=== PATIENT | male | born 1935 | race African-American/Black ===

== ENCOUNTER 2017-03-19 09:55 | Inpatient (IN) | payer OTHER ==
--- NOTE | 2017-03-19 10:18 | PDOC ---
History of Present Illness - General Chief Complaint: Hematuria Stated Complaint: URINARY BLEEDING Time Seen by Provider: 03/19/17 10:18 History Source: Patient - History of Present Illness Initial Comments: 03/19/17 10:40 81 y.o. male with a PMH of ESRD (on HD - last HD yesterday (03/19)), CVA (2012 no residual deficits), Aortic valve replacement, Atrial Fibrillation (on Warfarin) and BPH (s/p Urolift on 03/17) presents to our ED today c/o 1 day h/o of bright red penile bleed associated with his recent Kwan cathetherization. Patient states the catheter was placed on following the Urolift procedure. Patient c/o of bladder pressure and the catheter was changed by his urologist yesterday and he started to notice the bleeding yesterday evening. Patient also notes he was started on antibiotics yesterday (cannot recall names of abx) Patient currently c/o bladder fullness. ROS is positive for new onset of dyspnea on exertion and decreased PO intake over the last 2 days. NKDA Surgical: Aortic valve replacement PMD: Dr. Justin Jenkins Urologist: Dr. Grover Ascencio Wringer Operator: Dr. 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 No: Hemoptysis Cardiac (ROS): No: Chest Pain ABD/GI: No: Constipated, Diarrhea, Nausea, Vomiting : Yes: Other (unable to assess dysuria/hematuria 2/2 to decreased sensation) *Physical Exam - Vital Signs Last Vital Signs Temp Pulse Resp BP Pulse Ox 96.7 F L 70 12 88/57 96 03/19/17 09:55 03/19/17 09:55 03/19/17 09:55 03/19/17 09:55 03/19/17 09:55 - Physical Exam Comments: 03/19/17 11:00 GENERAL: The patient is awake, alert, and fully oriented, Nontoxic - in no acute distress. HEAD: Normocephalic, atraumatic. EYES: extraocular movements intact, sclera anicteric, conjunctiva clear. ENT: Normal voice, Moist mucous membranes. NECK: Normal range of motion, supple LUNGS: Breath sounds equal, clear to auscultation bilaterally.~ No wheezes, no rhonchi, no rales. HEART: Regular rate and rhythm, normal S1 and S2 without murmur, rub or gallop. ABDOMEN: Soft, nontender, normoactive bowel sounds.~ No guarding, no rebound.~ . No CVA tenderness : bright red blood w/no active bleed @ urethal meatus, no testicular/scrotal tenderness, bladder distension EXTREMITIES: Normal range of motion, no edema, No clubbing or cyanosis, or tenderness. NEUROLOGICAL: No facial assymetry, Normal speech,~ PSYCH: Normal mood, normal affect. SKIN: Warm, Dry, normal turgor 03/19/17 12:30 General Appearance: Yes: Nourished, Thin HEENT: positive: EOMI, JENNIE Neck: positive: Trachea midline, Supple Respiratory/Chest: positive: Lungs Clear Cardiovascular: positive: S1, S2, Other (Loud S2 ) Gastrointestinal/Abdominal: positive: Normal Bowel Sounds, Soft Male Genitalia: positive: other (bright red blood @ urethal meatus). negative: testicular tenderness Musculoskeletal: negative: CVA Tenderness (R), CVA Tenderness (L) ED Treatment Course - LABORATORY CBC & Chemistry Diagram: 03/19/17 15:39 03/19/17 13:45 Medical Decision Making - Medical Decision Making 03/19/17 10:56 81 y.o. male presents with acute onset of bleed from recent Kwan cathertization. Will obtain CBC to check for anemia 2/2 to blood loss, CMP to assess electrolytes and renal/pelvic U/S. 03/19/17 10:57 Cathether resistant to irrigation, increased bleeding. Patient continues to breath comfortably on RA. At this time, given concern for increased bleeding will keep catheter in place pending renal U/S. 03/19/17 12:08 Patient continues to c/o pain. Morphine for pain control. Patient awaiting U/S 03/19/17 14:10 Bladder U/S shows 11 x 8.1 x 10 cm echogenic bladder lesion possibly hematoma vs. neoplasm. Renal U/S negative for hydronephrosis. Patient Hb 7.7 - no previous Hb on record. Troponin elevated - likely 2/2 to demand ischemia 2/2 to anemia. EKG shows AFib HR 66 with LAD - patient on Warfarin. Case d/w urology (Dr. Bhatia, customer resolution specialist for patient's urologist, Dr. Marc) - will replace current catheter w/ [place] 26 03/19/17 14:40 Catheter replaced with clot removal. Patient resting comfortably. Repeat Hb 7. Case d/w DARIAN Anderson (customer resolution specialist for Hospitalist) accepts for OBS admission - will not transfuse at this time. SpO2 97% on RA, SBP 120's. Patient tolerating PO intake, pain controlled. Will continue to monitor while in ED. *DC/Admit/Observation/Transfer Diagnosis at time of Disposition: Hematuria - Discharge Dispostion Disposition: HOME Condition at time of disposition: Fair Admit: Yes - Referrals - Patient Instructions - Post Discharge Activity
--- NOTE | 2017-03-19 10:19 | PDOC ---
Attending Attestation - HPI HPI: 03/19/17 11:18 The patient is a 81 year old male with a significant past medical history of ESRD (on HD- last HD 03/19/17), CVA (2012), Aortic valve replacement who presents to the ED with complaints of penile bleeding since yesterday. The patient states he recently got a Abbott catheter placed on . He reports penile pain and bladder fullness secondary to having the catheter placed. He states he had the catheter changed by his urologist yesterday and was started with antibiotics. Patient reports a sudden onset of penile bleeding since last night. He currently complains of fullness in his bladder and decreased PO intake over the past 2 days. Denies fever or chills. Denies nausea, vomiting, or diarrhea. Denies any other symptoms. Urologist: Dr. Bose Documentation prepared by Mehdi Caballero, acting as medical pathology teacher for Jennifer Farrell MD <Mehdi Caballero - Last Filed: 03/19/17 11:18> - Resident Resident Name: Maci Patino - HPI HPI: I Dr. Jennifer Farrell attest that the documentation that appears above has been prepared under my direction and personally reviewed by me. I confirm that the note above accurately reflects all work , treatment,procedures and medical decision-making performed by me. 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 Pt's labs noted ,sono resut noted, pt seen and examined in ED by urology. Abbott irrigated and blood clots dislodged and abbott functional.PT's hgb has dropped will continue to monitor. Pt with no c/o chest pain but has elevated troponin,stable may be related to esrd, demand ischemia or secondary to anemia, will continue to monitor. Pt admitted to hospital.PT agrees with admission. <Jennifer Farrell - Last Filed: 03/20/17 01:06>
[2017-03-19 13:53] LABS: BASO % 1.5 % (0-2.0); HEMATOCRIT 23.4 % (35.4-49); HEMOGLOBIN 7.7 GM/dL (11.7-16.9); LYMPH % 3.7 % (8-40); MCH 35.4 pg (25.7-33.7); MCHC 33.1 g/dl (32.0-35.9); MEAN CELL VOLUME 107.1 fl (80-96); MEAN PLT VOLUME 7.8 fl (7.5-11.1); MONO % 5.6 % (3.8-10.2); NEUT % 89.2 % (42.8-82.8); PLATELET COUNT 187 K/MM3 (134-434); RBC 2.18 M/mm3 (4.00-5.60); RDW 14.8 % (11.9-15.9); WHITE BLOOD COUNT 14.1 K/mm3 (4.0-10.0)
[2017-03-19 14:09] LABS: CHLORIDE 98 mmol/L (98-107); POTASSIUM 4.9 mmol/L (3.5-5.1); SODIUM 136 mmol/L (136-145)
[2017-03-19] MEDS ORDERED: ACETAMINOPHEN 1000 MG/100 ML VIAL (NON FORMULARY) IVPB ONE (14:33)
[2017-03-19 14:36] LABS: ALBUMIN 3.6 g/dl (3.4-5.0); ANION GAP 12 (8-16); BLOOD UREA NITROGEN 35 mg/dL (7-18); CALCIUM 8.5 mg/dL (8.5-10.1); CO2 24 mmol/L (21-32); GLUCOSE,RANDOM 119 mg/dL (74-106); SGPT/ALT 17 U/L (12-78); TOT PROT 6.7 g/dl (6.4-8.2)
[2017-03-19] MEDS ORDERED: ACETAMINOPHEN INJECTION 100 ML IVPB ONE (14:38)
[2017-03-19 14:40] LABS: ALK PHOS 83 U/L (45-117); BILIRUBIN,TOTAL 0.5 mg/dL (0.2-1.0); MAGNESIUM 2.1 mg/dL (1.8-2.4); SGOT/AST 28 U/L (15-37)
[2017-03-19 14:44] LABS: CREATININE 9.2 mg/dL (0.7-1.3)
[2017-03-19 16:05] LABS: URINE BILIRUBIN NEGATIVE (NEGATIVE); URINE BLOOD 3+ (NEGATIVE); URINE COLOR DK. RED; URINE GLUCOSE (UA) 1+ (NEGATIVE); URINE KETONE 1+ (NEGATIVE); URINE UROBILINOGEN 4.0 E.U/dl mg/dL (0.2-1.0)
[2017-03-19 16:09] LABS: BASO % 0.4 % (0-2.0); HEMATOCRIT 23.1 % (35.4-49); HEMOGLOBIN 7.7 GM/dL (11.7-16.9); LYMPH % 4.1 % (8-40); MCH 35.8 pg (25.7-33.7); MCHC 33.3 g/dl (32.0-35.9); MEAN CELL VOLUME 107.4 fl (80-96); MEAN PLT VOLUME 7.9 fl (7.5-11.1); MONO % 5.2 % (3.8-10.2); NEUT % 90.3 % (42.8-82.8); PLATELET COUNT 191 K/MM3 (134-434); RBC 2.15 M/mm3 (4.00-5.60); RDW 14.2 % (11.9-15.9); WHITE BLOOD COUNT 13.6 K/mm3 (4.0-10.0)
[2017-03-19 16:18] LABS: URINE APPEARANCE CLOUDY; URINE LEUK ESTERASE 2+ (NEGATIVE); URINE NITRITE POSITIVE (NEGATIVE); URINE PROTEIN 3+ (NEGATIVE)
[2017-03-19 16:23] LABS: URINE BACTERIA MODERATE /hpf (NONE SEEN)
[2017-03-19] MEDS ORDERED: CEFTRIAXONE 1 GM/50 ML BAG ONE (16:39)
--- NOTE | 2017-03-19 16:42 | CON.GU ---
Consult - History of Present Illness History of Present Illness: 81 yo male s/p recent Urolift. Now with gross hematuria and clot retention. Currently with 24 fr abbott that is not draining. - Alcohol/Substance Use Hx Alcohol Use: No - Smoking History Smoking history: Never smoked Have you smoked in the past 12 months: No Home Medications - Allergies Allergies/Adverse Reactions: Allergies Allergy/AdvReac Type Severity Reaction Status Date / Time No Known Allergies Allergy Verified 03/19/17 10:07 - Home Medications Home Medications: Ambulatory Orders Amino Acids/Protein Hydrolys [Proteinex-18 Liquid] 30 ml PO DAILY 03/19/17 Atorvastatin Ca [Lipitor] 20 mg PO HS 03/19/17 Sevelamer Carbonate 1,600 mg PO TID 03/19/17 Silodosin [Rapaflo] 8 mg PO DAILY 03/19/17 Warfarin Na [Coumadin] 5 mg PO DAILY 03/19/17 Review of Systems - Review of Systems Genitourinary: reports: Hematuria Physical Exam- Vital Signs: Vital Signs Temperature 96.7 F L 03/19/17 09:55 Pulse Rate 89 03/19/17 11:06 Respiratory Rate 18 03/19/17 11:06 Blood Pressure 101/64 03/19/17 11:06 O2 Sat by Pulse Oximetry (%) 95 03/19/17 11:06 Renal/: Yes: Abbott Present, Hematuria Labs: CBC, BMP 03/19/17 15:39 03/19/17 13:45 Imaging - Results Ultrasound: Report Reviewed Problem List - Problems (1) Gross hematuria Assessment/Plan: cont abbott drainage and irigate abbott Q 4hrs Code(s): R31.0 - GROSS HEMATURIA
--- NOTE | 2017-03-19 17:59 | HP ---
CHIEF COMPLAINT: abbott catheter not draining s/p urolift procedure PCP: HISTORY OF PRESENT ILLNESS: This is a 81 yo man with PMH CVA '13, ESRD on HD MWF , HTN who presents with clogged abbott catheter s/p urolift procedure 03/17. The patient f/u with Dr. Bose on 03/18 and had catheter replaced. He aoke up this morning and had suprapubic fullness and noted his drainage bag had minimal drainage. He called his urologist and was told to go to the ED. He denies fevers , chills, chest pain, SOB, abdominal pain, nausea, vomiting, diarrhea or rectal bleeding. The patient is taking Bactrim DS qd s/p urolift. ER course was notable for: (1) Hgb- 7.7->7.7 (2) Trop-0.11 Recent Travel: denies PAST MEDICAL HISTORY: see hpi PAST SURGICAL HISTORY: see hpi Social History: Smoking: quit 30+ years ago Alcohol: quit 5 years ago Drugs: denies Family History: non-contributory Allergies No Known Allergies Allergy (Verified 03/19/17 10:07) HOME MEDICATIONS: Home Medications Medication Instructions Recorded Amino Acids/Protein Hydrolys 30 ml PO DAILY 03/19/17 [Proteinex-18 Liquid] Atorvastatin Ca [Lipitor] 20 mg PO HS 03/19/17 Sevelamer Carbonate 1,600 mg PO TID 03/19/17 Silodosin [Rapaflo] 8 mg PO DAILY 03/19/17 Warfarin Na [Coumadin] 5 mg PO DAILY 03/19/17 REVIEW OF SYSTEMS CONSTITUTIONAL: Present- generalized weakness Absent: fever, chills, diaphoresis, malaise, loss of appetite, weight change HEENT: Absent: rhinorrhea, nasal congestion, throat pain, throat swelling, difficulty swallowing, mouth swelling, ear pain, eye pain, visual changes CARDIOVASCULAR: Absent: chest pain, syncope, palpitations, irregular heart rate, lightheadedness , peripheral edema RESPIRATORY: Absent: cough, shortness of breath, dyspnea with exertion, orthopnea, wheezing, stridor, hemoptysis GASTROINTESTINAL: Absent: abdominal pain, abdominal distension, nausea, vomiting, diarrhea, constipation, melena, hematochezia GENITOURINARY: Present- hematuria Absent: dysuria, frequency, urgency, hesitancy, flank pain, genital pain MUSCULOSKELETAL: Absent: myalgia, arthralgia, joint swelling, back pain, neck pain SKIN: Absent: rash, itching, pallor HEMATOLOGIC/IMMUNOLOGIC: Absent: easy bleeding, easy bruising, lymphadenopathy, frequent infections ENDOCRINE: Absent: unexplained weight gain, unexplained weight loss, heat intolerance, cold intolerance NEUROLOGIC: Absent: headache, focal weakness or paresthesias, dizziness, unsteady gait, seizure, mental status changes, bladder or bowel incontinence PSYCHIATRIC: Absent: anxiety, depression, suicidal or homicidal ideation, hallucinations. PHYSICAL EXAMINATION Vital Signs - 24 hr 03/19/17 03/19/17 03/19/17 09:55 11:06 17:10 Temperature 96.7 F L Pulse Rate 70 Pulse Rate [ 89 67 Apical] Respiratory 12 18 18 Rate Blood Pressure 88/57 Blood Pressure 101/64 120/65 [Right Arm] O2 Sat by Pulse 96 95 97 Oximetry (%) GENERAL: Awake, alert, and fully oriented, in no acute distress. HEAD: Normal with no signs of trauma. EYES: Pupils equal, round and reactive to light, extraocular movements intact, sclera anicteric, conjunctiva clear. No lid lag. EARS, NOSE, THROAT: Ears normal, nares patent, oropharynx clear without exudates. Moist mucous membranes. NECK: Normal range of motion, supple without lymphadenopathy, JVD, or masses. LUNGS: Breath sounds equal, clear to auscultation bilaterally. No wheezes, and no crackles. No accessory muscle use. HEART: Regular rate and rhythm, normal S1 and S2 without murmur, rub or gallop. ABDOMEN: Soft, nontender, not distended, normoactive bowel sounds, no guarding, no rebound, no masses. No hepatomegaly or splenomegaly. : 24F catheter in place. David blood noted in drainage tube. MUSCULOSKELETAL: Normal range of motion at all joints. No bony deformities or tenderness. No CVA tenderness. UPPER EXTREMITIES: 2+ pulses, warm, well-perfused. No cyanosis. No clubbing. No peripheral edema. LOWER EXTREMITIES: 2+ pulses, warm, well-perfused. No calf tenderness. No peripheral edema. Venous stasis changes to RLE. NEUROLOGICAL: Cranial nerves II-XII intact. Normal speech. Normal gait. PSYCHIATRIC: Cooperative. Good eye contact. Appropriate mood and affect. SKIN: Warm, dry, normal turgor, no rashes or lesions noted, normal capillary refill. Laboratory Results - last 24 hr 03/19/17 03/19/17 03/19/17 10:33 13:45 13:45 WBC 14.1 H RBC 2.18 L Hgb 7.7 L Hct 23.4 L MCV 107.1 H MCH 35.4 H MCHC 33.1 RDW 14.8 Plt Count 187 MPV 7.8 Neutrophils % 89.2 H Lymphocytes % 3.7 L Monocytes % 5.6 Eosinophils % 0.0 Basophils % 1.5 Sodium 136 Potassium 4.9 Chloride 98 Carbon Dioxide 24 Anion Gap 12 BUN 35 H Creatinine 9.2 H* Creat Clearance w eGFR 5.67 Random Glucose 119 H Calcium 8.5 Magnesium 2.1 Total Bilirubin 0.5 AST 28 ALT 17 Alkaline Phosphatase 83 Creatine Kinase 165 Creatine Kinase Index 0.8 CK-MB (CK-2) 1.34 Troponin I 0.11 H Total Protein 6.7 Albumin 3.6 Urine Color Dk. red Urine Appearance Cloudy Urine pH 8.0 Ur Specific [place] 1.015 Urine Protein 3+ H Urine Glucose (UA) 1+ H Urine Ketones 1+ H Urine Blood 3+ H Urine Nitrite Positive Urine Bilirubin Negative Urine Urobilinogen 4.0 e.u/dl Ur Leukocyte Esterase 2+ H Urine WBC (Auto) >100 Urine RBC (Auto) >100 Urine Bacteria Moderate Blood Type Antibody Screen 03/19/17 03/19/17 15:39 15:39 WBC 13.6 H RBC 2.15 L Hgb 7.7 L Hct 23.1 L MCV 107.4 H MCH 35.8 H MCHC 33.3 RDW 14.2 Plt Count 191 MPV 7.9 Neutrophils % 90.3 H Lymphocytes % 4.1 L Monocytes % 5.2 Eosinophils % 0.0 Basophils % 0.4 Sodium Potassium Chloride Carbon Dioxide Anion Gap BUN Creatinine Creat Clearance w eGFR Random Glucose Calcium Magnesium Total Bilirubin AST ALT Alkaline Phosphatase Creatine Kinase Creatine Kinase Index CK-MB (CK-2) Troponin I Total Protein Albumin Urine Color Urine Appearance Urine pH Ur Specific [place] Urine Protein Urine Glucose (UA) Urine Ketones Urine Blood Urine Nitrite Urine Bilirubin Urine Urobilinogen Ur Leukocyte Esterase Urine WBC (Auto) Urine RBC (Auto) Urine Bacteria Blood Type O NEGATIVE Antibody Screen Negative ASSESSMENT/PLAN: A: 81 yo man with clotted urinary catheter s/p Urolift procedure 2/8. Abbott replaced in ED by . P: Hematuria - flush abbott q4h - initial Hgb 7.7; repeat 7.7 - trend H&H - transfuse hgb<7.0 - Urology following - Levaquin Anemia - trend CBC - transfuse hgb<7.0 - telemetry - trend troponins Mildly elevated troponin - likely from anemia - trend - telemetry h/o CVA - Coumadin - daily pt/inr ESRD on HD MWF - [facility] - Nephrovite HTN - well controlled - not on home meds F/E/N - renal diet - replete prn PPX - coumadin Dispo- requires observation of acute medical condition Visit type - Emergency Visit Emergency Visit: Yes ED Registration Date: 03/19/17 Care time: The patient presented to the Emergency Department on the above date and was hospitalized for further evaluation of their emergent condition. - New Patient This patient is new to me today: Yes Date on this admission: 03/19/17 - Critical Care Critical Care patient: No
[2017-03-19] MEDS ORDERED: WARFARIN NA 5 MG TABLET (UD) PO ONE (18:30)
[2017-03-19] MEDS ORDERED: WARFARIN NA 5 MG TABLET (UD) ONE (18:39)
[2017-03-19 18:44] LABS: INR 2.74 (0.82-1.09)
[2017-03-19 22:01] LABS: BASO % 0.4 % (0-2.0); EOS % 0.2 % (0-4.5); HEMATOCRIT 19.3 % (35.4-49); LYMPH % 6.9 % (8-40); MCH 34.8 pg (25.7-33.7); MCHC 32.2 g/dl (32.0-35.9); MEAN CELL VOLUME 107.9 fl (80-96); MONO % 10.8 % (3.8-10.2); NEUT % 81.7 % (42.8-82.8); PLATELET COUNT 169 K/MM3 (134-434); RBC 1.79 M/mm3 (4.00-5.60); RDW 14.6 % (11.9-15.9); WHITE BLOOD COUNT 11.4 K/mm3 (4.0-10.0)
[2017-03-19 22:11] LABS: HEMOGLOBIN 6.2 GM/dL (11.7-16.9)
[2017-03-19] MEDS: ATORVASTATIN CA 20 MG TABLET (FP) PO SCH (22:34)
[2017-03-19] MEDS ORDERED: PHYTONADIONE 5 MG TABLET PO ONE (23:15)
--- NOTE | 2017-03-20 08:39 | EKG ---
Test Reason : Blood Pressure : / mmHG Vent. Rate : 066 BPM Atrial Rate : 066 BPM P-R Int : 000 ms QRS Dur : 130 ms QT Int : 444 ms P-R-T Axes : 000 -36 189 degrees QTc Int : 465 ms ATRIAL FIBRILLATION LEFT AXIS DEVIATION NON-SPECIFIC INTRA-VENTRICULAR CONDUCTION BLOCK T WAVE ABNORMALITY, CONSIDER LATERAL ISCHEMIA ABNORMAL ECG WHEN COMPARED WITH ECG OF 19-MAR-2017 10:44, NONSPECIFIC T WAVE ABNORMALITY NOW EVIDENT IN INFERIOR LEADS Confirmed by CATERINA ROSADO, CLAIR ([id number]) on 03/20/2017 8:39:30 AM Referred By: Confirmed By:CLAIR DIGGS MD
--- NOTE | 2017-03-20 08:44 | EKG ---
Test Reason : Blood Pressure : / mmHG Vent. Rate : 071 BPM Atrial Rate : 120 BPM P-R Int : 000 ms QRS Dur : 128 ms QT Int : 428 ms P-R-T Axes : 000 -34 123 degrees QTc Int : 465 ms ATRIAL FIBRILLATION LEFT AXIS DEVIATION NON-SPECIFIC INTRA-VENTRICULAR CONDUCTION BLOCK T WAVE ABNORMALITY, CONSIDER LATERAL ISCHEMIA ABNORMAL ECG NO PREVIOUS ECGS AVAILABLE Confirmed by CLAIR DIGGS MD ([id number]) on 03/20/2017 8:43:59 AM Referred By: Confirmed By:CLAIR DIGGS MD
[2017-03-20] MEDS: SEVELAMER CARBONATE 800 MG TAB (FP) PO SCH ×3 (09:02→18:02)
[2017-03-20] MEDS: TAMSULOSIN HCL 0.4 MG CAP.ER.24H (FP) PO SCH (09:03)
[2017-03-20 09:04] LABS: BASO % 0.3 % (0-2.0); EOS % 2.1 % (0-4.5); HEMATOCRIT 23.7 % (35.4-49); LYMPH % 9.2 % (8-40); MCH 33.5 pg (25.7-33.7); MCHC 33.8 g/dl (32.0-35.9); MEAN PLT VOLUME 7.6 fl (7.5-11.1); NEUT % 79.4 % (42.8-82.8); PLATELET COUNT 153 K/MM3 (134-434); RBC 2.39 M/mm3 (4.00-5.60); RDW 19.6 % (11.9-15.9); WHITE BLOOD COUNT 10.7 K/mm3 (4.0-10.0)
[2017-03-20 09:12] LABS: INR 2.4 (0.82-1.09); PROTHROMBIN TIME (PATIENT) 27.1 SEC (9.98-11.88)
[2017-03-20] MEDS: AMINO ACIDS/PROTEIN HYDROLYS 30 ML LIQUID.PKT PO SCH (09:26)
[2017-03-20] MEDS: CEFTRIAXONE 1 G/50 ML PREMIX 50 ML IVPB SCH (09:28)
[2017-03-20 09:31] LABS: ALBUMIN 3.1 g/dl (3.4-5.0); ANION GAP 9 (8-16); BILIRUBIN,TOTAL 0.9 mg/dL (0.2-1.0); BLOOD UREA NITROGEN 47 mg/dL (7-18); CHLORIDE 100 mmol/L (98-107); CO2 29 mmol/L (21-32); GLUCOSE,RANDOM 90 mg/dL (74-106); POTASSIUM 4.1 mmol/L (3.5-5.1); SGOT/AST 24 U/L (15-37); SGPT/ALT 18 U/L (12-78); SODIUM 138 mmol/L (136-145); TOT PROT 5.7 g/dl (6.4-8.2)
[2017-03-20 09:37] LABS: ALK PHOS 69 U/L (45-117)
[2017-03-20] MEDS ORDERED: CEFTRIAXONE 1 GM in DEXTROSE 5%-WATER - 50 ML IVPB SCH (10:00)
--- NOTE | 2017-03-20 10:41 | PN ---
Progress Note (short form) - Note Progress Note: abbott stopped draining this am s/p 2 u blood new 24fr hematuria cath placed multiple clots irrigated cont manual irrigation hold anticoagulation Problem List - Problems (1) Gross hematuria Code(s): R31.0 - GROSS HEMATURIA
--- NOTE | 2017-03-20 11:28 | PN ---
Physical Exam: SUBJECTIVE: Patient seen and examined. Hgb dropped to 6.2 overnight. 2u PRBC's given. Hgb s/p PRBC->8.0. Abbott replaced this AM by . OBJECTIVE: Vital Signs Period Temp Pulse Resp BP Sys/Tomas Pulse Ox Last 24 Hr 97.8 F-98.5 F 56-70 16-20 104-120/51-65 96-98 GENERAL: The patient is awake, alert, and fully oriented, in no acute distress. LUNGS: CTAB HEART: RRR, S1, S2. No m/r/g. ABDOMEN: Soft nondistended. TTP over suprapubic. Palpable bladder. Abbott with bloody drainage. NEUROLOGICAL: Cranial nerves II through XII grossly intact. Normal speech, gait not observed. SKIN: Warm, dry, normal turgor, no rashes or lesions noted Laboratory Results - last 24 hr 03/19/17 03/19/17 03/19/17 10:33 13:45 13:45 WBC 14.1 H RBC 2.18 L Hgb 7.7 L Hct 23.4 L MCV 107.1 H MCH 35.4 H MCHC 33.1 RDW 14.8 Plt Count 187 MPV 7.8 Neutrophils % 89.2 H Lymphocytes % 3.7 L Monocytes % 5.6 Eosinophils % 0.0 Basophils % 1.5 PT with INR INR Sodium 136 Potassium 4.9 Chloride 98 Carbon Dioxide 24 Anion Gap 12 BUN 35 H Creatinine 9.2 H* Creat Clearance w eGFR 5.67 Random Glucose 119 H Calcium 8.5 Magnesium 2.1 Total Bilirubin 0.5 AST 28 ALT 17 Alkaline Phosphatase 83 Creatine Kinase 165 Creatine Kinase Index 0.8 CK-MB (CK-2) 1.34 Troponin I 0.11 H Total Protein 6.7 Albumin 3.6 Urine Color Dk. red Urine Appearance Cloudy Urine pH 8.0 Ur Specific Polson 1.015 Urine Protein 3+ H Urine Glucose (UA) 1+ H Urine Ketones 1+ H Urine Blood 3+ H Urine Nitrite Positive Urine Bilirubin Negative Urine Urobilinogen 4.0 e.u/dl Ur Leukocyte Esterase 2+ H Urine WBC (Auto) >100 Urine RBC (Auto) >100 Urine Bacteria Moderate Blood Type Antibody Screen Crossmatch 03/19/17 03/19/17 03/19/17 15:39 15:39 18:22 WBC 13.6 H RBC 2.15 L Hgb 7.7 L Hct 23.1 L MCV 107.4 H MCH 35.8 H MCHC 33.3 RDW 14.2 Plt Count 191 MPV 7.9 Neutrophils % 90.3 H Lymphocytes % 4.1 L Monocytes % 5.2 Eosinophils % 0.0 Basophils % 0.4 PT with INR 31.00 H INR 2.74 H Sodium Potassium Chloride Carbon Dioxide Anion Gap BUN Creatinine Creat Clearance w eGFR Random Glucose Calcium Magnesium Total Bilirubin AST ALT Alkaline Phosphatase Creatine Kinase Creatine Kinase Index CK-MB (CK-2) Troponin I Total Protein Albumin Urine Color Urine Appearance Urine pH Ur Specific Polson Urine Protein Urine Glucose (UA) Urine Ketones Urine Blood Urine Nitrite Urine Bilirubin Urine Urobilinogen Ur Leukocyte Esterase Urine WBC (Auto) Urine RBC (Auto) Urine Bacteria Blood Type O NEGATIVE Antibody Screen Negative Crossmatch 03/19/17 03/19/17 03/19/17 18:59 21:40 21:40 WBC 11.4 H RBC 1.79 L Hgb 6.2 L* D Hct 19.3 L D MCV 107.9 H MCH 34.8 H MCHC 32.2 RDW 14.6 Plt Count 169 MPV 8.0 Neutrophils % 81.7 Lymphocytes % 6.9 L D Monocytes % 10.8 H D Eosinophils % 0.2 D Basophils % 0.4 PT with INR INR Sodium Potassium Chloride Carbon Dioxide Anion Gap BUN Creatinine Creat Clearance w eGFR Random Glucose Calcium Magnesium Total Bilirubin AST ALT Alkaline Phosphatase Creatine Kinase Creatine Kinase Index CK-MB (CK-2) Troponin I 0.11 H 0.11 H Total Protein Albumin Urine Color Urine Appearance Urine pH Ur Specific Polson Urine Protein Urine Glucose (UA) Urine Ketones Urine Blood Urine Nitrite Urine Bilirubin Urine Urobilinogen Ur Leukocyte Esterase Urine WBC (Auto) Urine RBC (Auto) Urine Bacteria Blood Type Antibody Screen Crossmatch 03/19/17 03/20/17 03/20/17 22:55 08:40 08:40 WBC 10.7 H RBC 2.39 L D Hgb 8.0 L D Hct 23.7 L D MCV 99.0 H D MCH 33.5 MCHC 33.8 RDW 19.6 H D Plt Count 153 MPV 7.6 Neutrophils % 79.4 Lymphocytes % 9.2 D Monocytes % 9.0 Eosinophils % 2.1 D Basophils % 0.3 PT with INR INR Sodium 138 Potassium 4.1 Chloride 100 Carbon Dioxide 29 D Anion Gap 9 BUN 47 H D Creatinine 11.0 H* Creat Clearance w eGFR 4.50 Random Glucose 90 D Calcium 8.0 L Magnesium Total Bilirubin 0.9 D AST 24 ALT 18 Alkaline Phosphatase 69 Creatine Kinase Creatine Kinase Index CK-MB (CK-2) Troponin I Total Protein 5.7 L Albumin 3.1 L Urine Color Urine Appearance Urine pH Ur Specific Polson Urine Protein Urine Glucose (UA) Urine Ketones Urine Blood Urine Nitrite Urine Bilirubin Urine Urobilinogen Ur Leukocyte Esterase Urine WBC (Auto) Urine RBC (Auto) Urine Bacteria Blood Type O NEGATIVE Antibody Screen Negative Crossmatch See Detail 03/20/17 08:40 WBC RBC Hgb Hct MCV MCH MCHC RDW Plt Count MPV Neutrophils % Lymphocytes % Monocytes % Eosinophils % Basophils % PT with INR 27.10 H INR 2.40 H Sodium Potassium Chloride Carbon Dioxide Anion Gap BUN Creatinine Creat Clearance w eGFR Random Glucose Calcium Magnesium Total Bilirubin AST ALT Alkaline Phosphatase Creatine Kinase Creatine Kinase Index CK-MB (CK-2) Troponin I Total Protein Albumin Urine Color Urine Appearance Urine pH Ur Specific Polson Urine Protein Urine Glucose (UA) Urine Ketones Urine Blood Urine Nitrite Urine Bilirubin Urine Urobilinogen Ur Leukocyte Esterase Urine WBC (Auto) Urine RBC (Auto) Urine Bacteria Blood Type Antibody Screen Crossmatch Active Medications Generic Name Dose Route Start Last Admin Trade Name Freq PRN Reason Stop Dose Admin Acetaminophen 650 mg 03/19/17 18:50 Tylenol - PO Q4H PRN PAIN OR FEVER Amino Acids 30 ml 03/20/17 10:00 03/20/17 09:26 Prosource No Carb Liquid Pkt PO 30 ml DAILY [facility] Administration Atorvastatin Calcium 20 mg 03/19/17 22:00 03/19/17 22:34 Lipitor - PO 20 mg HS [facility] Administration CEFTRIAXONE 1 G/50 ML PREMIX 50 mls @ 100 mls/hr 03/20/17 10:00 03/20/17 09: 28 Ceftriaxone 1 Gm-D5w Bag IVPB 100 mls/hr DAILY [facility] Administration Sevelamer Carbonate 1,600 mg 03/20/17 08:00 03/20/17 09:02 Renvela - PO 1,600 mg TIDCM [facility] Administration Tamsulosin HCl 0.4 mg 03/20/17 08:30 03/20/17 09:03 Flomax - PO 0.4 mg DAILY@0830 [facility] Administration ASSESSMENT/PLAN: A: 81 yo man with clotted urinary catheter s/p Urolift procedure 03/17. Abbott replaced in ED by ->replaced this AM. P: Hematuria - flush abbott q2h - initial Hgb 7.7; repeat 7.7 - trend H&H - transfuse hgb<7.0 - Urology following - Ceftriaxone until cx returned Anemia - Hgb 7.7->7.7->6.2->8.0 - transfuse hgb<7.0 - received 2u PRBC's overnight - telemetry - trend cbc Mildly elevated troponin - likely from anemia - stable - telemetry h/o CVA - hold Coumadin 2/2 active bleeding - daily pt/inr ESRD on HD MWF - Renagel - Nephrovite - renal consult for HD MWF HTN - well controlled - not on home meds F/E/N - renal diet - replete prn PPX - OOB - hold Coumadin 2/2 active bleeding Dispo- requires inpatient treatment of acute medical condition Visit type - Emergency Visit Emergency Visit: Yes ED Registration Date: 03/20/17 Care time: The patient presented to the Emergency Department on the above date and was hospitalized for further evaluation of their emergent condition. - New Patient This patient is new to me today: No - Critical Care Critical Care patient: No
[2017-03-20 11:56] LABS: BASO % 0.5 % (0-2.0); EOS % 1.8 % (0-4.5); HEMATOCRIT 21.7 % (35.4-49); HEMOGLOBIN 7.2 GM/dL (11.7-16.9); LYMPH % 7.1 % (8-40); MCH 33.4 pg (25.7-33.7); MCHC 33.3 g/dl (32.0-35.9); MEAN CELL VOLUME 100.3 fl (80-96); MEAN PLT VOLUME 7.9 fl (7.5-11.1); MONO % 9.1 % (3.8-10.2); NEUT % 81.5 % (42.8-82.8); PLATELET COUNT 145 K/MM3 (134-434); RBC 2.17 M/mm3 (4.00-5.60)
[2017-03-20] MEDS ORDERED: WARFARIN NA 5 MG TABLET (UD) PO SCH (18:00)
[2017-03-20 21:04] LABS: HEMOGLOBIN 9.5 GM/dL (11.7-16.9); MCHC 33.9 g/dl (32.0-35.9); MEAN CELL VOLUME 97.5 fl (80-96); MEAN PLT VOLUME 7.8 fl (7.5-11.1); PLATELET COUNT 160 K/MM3 (134-434); RBC 2.87 M/mm3 (4.00-5.60); RDW 19.7 % (11.9-15.9); WHITE BLOOD COUNT 9.1 K/mm3 (4.0-10.0)
[2017-03-20] MEDS: ATORVASTATIN CA 20 MG TABLET (FP) PO SCH (21:42)
[2017-03-21] MEDS: SEVELAMER CARBONATE 800 MG TAB (FP) PO SCH ×3 (08:00→17:37)
[2017-03-21] MEDS: TAMSULOSIN HCL 0.4 MG CAP.ER.24H (FP) PO SCH (09:23)
[2017-03-21] MEDS: AMINO ACIDS/PROTEIN HYDROLYS 30 ML LIQUID.PKT PO SCH (09:23)
[2017-03-21] MEDS: CEFTRIAXONE 1 G/50 ML PREMIX 50 ML IVPB SCH (09:23)
[2017-03-21 12:10] LABS: HEMATOCRIT 25.1 % (35.4-49); HEMOGLOBIN 8.5 GM/dL (11.7-16.9); MCH 32.8 pg (25.7-33.7); MCHC 33.7 g/dl (32.0-35.9); MEAN CELL VOLUME 97.1 fl (80-96); MEAN PLT VOLUME 7.3 fl (7.5-11.1); PLATELET COUNT 143 K/MM3 (134-434); RBC 2.59 M/mm3 (4.00-5.60); WHITE BLOOD COUNT 7.7 K/mm3 (4.0-10.0)
[2017-03-21 12:38] LABS: ANION GAP 8 (8-16); BLOOD UREA NITROGEN 65 mg/dL (7-18); CALCIUM 7.9 mg/dL (8.5-10.1); CHLORIDE 98 mmol/L (98-107); CO2 30 mmol/L (21-32); GLUCOSE,RANDOM 91 mg/dL (74-106); PHOSPHOROUS 4.1 mg/dL (2.5-4.9); POTASSIUM 4.2 mmol/L (3.5-5.1); SODIUM 136 mmol/L (136-145)
[2017-03-21 13:06] LABS: CREATININE 13.3 mg/dL (0.7-1.3)
[2017-03-21] MEDS ORDERED: EPOETIN ALFA 10,000 UNIT/1 ML VIAL IVPUSH ONE (14:30)
--- NOTE | 2017-03-21 15:57 | CON.NEP ---
Consult Consult Specialty:: Nephrology Referred by:: CONCHITA Anderson Reason for Consultation:: ESRD on HD - History of Present Illness Chief Complaint: Hematuria History of Present Illness: This is a 86 year old gentleman wit PMhx of ESRD on HD (MWF x 1.5 years), Hypertesnion, DM Type 2, - Alcohol/Substance Use Hx Alcohol Use: No - Smoking History Smoking history: Never smoked Have you smoked in the past 12 months: No Home Medications - Allergies Allergies/Adverse Reactions: Allergies Allergy/AdvReac Type Severity Reaction Status Date / Time No Known Allergies Allergy Verified 03/19/17 10:07 - Home Medications Home Medications: Ambulatory Orders Amino Acids/Protein Hydrolys [Proteinex-18 Liquid] 30 ml PO DAILY 03/19/17 Atorvastatin Ca [Lipitor] 20 mg PO HS 03/19/17 Sevelamer Carbonate 1,600 mg PO TID 03/19/17 Silodosin [Rapaflo] 8 mg PO DAILY 03/19/17 Warfarin Na [Coumadin] 5 mg PO DAILY 03/19/17 Nephrology Consult - Height Height: 6 ft 4 in - Weight Weight: 86.228 kg - BMI Body Mass Index (BMI): 23.1 - Lab Results CBC,BMP: CBC, BMP 03/21/17 12:00 03/21/17 12:00 Anion Gap: Anion Gap Anion Gap 8 (8-16) 03/21/17 12:00 - Physical Examination Vital Signs: Vital Signs Temperature 98 F 03/21/17 14:00 Pulse Rate 59 L 03/21/17 14:10 Respiratory Rate 18 03/21/17 14:10 Blood Pressure 112/55 03/21/17 14:10 O2 Sat by Pulse Oximetry (%) 97 03/21/17 09:00
[2017-03-21 16:00] VITALS: BMI 22.7
--- NOTE | 2017-03-21 16:04 | CONSULT ---
Consult - text type - Consultation Consultation Note: Nephrology Consult for ESRD on HD This is a 86 year old gentleman wit PMhx of ESRD on HD (MWF x 1.5 years), Hypertension, MVR on Coumadin recent urolift procedure who presented with clogged abbott catheter and hematuira. Pt last had dialysis on Tuesday w/o complication. Pt denies any sob, chest pain, abd pain, N/V/D. Has abbott in place with gross blood. No flank pain. PMHx: as above Allergies: NKDA Family Hx: NC Social Hx: No T/A/D ROS: As per HPI, all other pertinent ros negative Home Medications Medication Instructions Recorded Amino Acids/Protein Hydrolys 30 ml PO DAILY 03/19/17 [Proteinex-18 Liquid] Atorvastatin Ca [Lipitor] 20 mg PO HS 03/19/17 Sevelamer Carbonate 1,600 mg PO TID 03/19/17 Silodosin [Rapaflo] 8 mg PO DAILY 03/19/17 Warfarin Na [Coumadin] 5 mg PO DAILY 03/19/17 Vital Signs Temperature 98 F 03/21/17 14:00 Pulse Rate 59 L 03/21/17 14:10 Respiratory Rate 18 03/21/17 14:10 Blood Pressure 112/55 03/21/17 14:10 O2 Sat by Pulse Oximetry (%) 97 03/21/17 09:00 NAD awake and alert MMM, no JVD, Neck supple RRR, + systolic Click murmur CTA soft NT/ND Abbott in place with bloody urine CBC, BMP 03/21/17 12:00 03/21/17 12:00 Laboratory Tests 03/21/17 12:00 Random Glucose 91 Calcium 7.9 L Phosphorus 4.1 Current Medications Acetaminophen (Tylenol -) 650 mg PO Q4H PRN PRN Reason: PAIN OR FEVER Amino Acids (Prosource No Carb Liquid Pkt) 30 ml PO DAILY [facility] Last Admin: 03/21/17 09:23 Dose: 30 ml Atorvastatin Calcium (Lipitor -) 20 mg PO HS [facility] Last Admin: 03/20/17 21:42 Dose: 20 mg CEFTRIAXONE 1 G/50 ML PREMIX (Ceftriaxone 1 Gm-D5w Bag) 50 mls @ 100 mls/hr IVPB DAILY [facility] Last Admin: 03/21/17 09:23 Dose: 100 mls/hr Sevelamer Carbonate (Renvela -) 1,600 mg PO TIDCM [facility] Last Admin: 03/21/17 12:46 Dose: 1,600 mg Tamsulosin HCl (Flomax -) 0.4 mg PO DAILY@0830 [facility] Last Admin: 03/21/17 09:23 Dose: 0.4 mg 86 year old gentleman wit PMhx of ESRD on HD (MWF x 1.5 years), Hypertension, MVR on Coumadin recent urolift procedure who presented with clogged abbott catheter and hematuira. #ESRD on HD for dialysis today as inpatient will not use heparin as pt with active bleeding can transfuse PRBC with HD if Hgb < 8 UF 1.5 L as tolerated will continue 3x weekly dialysis as inpatient Dose all meds for intermittent HD #Gross Hematuria abbott in place trend CBC Urology follow up #MVR on Coumadin continue warfarin check INR #Renal Osteodystrophy continue phos binder with meals trend phos levels Thank you Will follow Lamonte Kapadia DO
--- NOTE | 2017-03-21 17:59 | PN ---
Physical Exam: SUBJECTIVE: Patient seen and examined. Voices no complaints. OBJECTIVE: Vital Signs Period Temp Pulse Resp BP Sys/Tomas Pulse Ox Last 24 Hr 98 F-98.6 F 52-62 18-20 100-116/43-58 96-97 GENERAL: The patient is awake, alert, and fully oriented, in no acute distress. LUNGS: Mild bibasilar crackles HEART: Irregular, S1, S2, +murmur ABDOMEN: Soft, nontender, nondistended, normoactive bowel sounds, no guarding, no rebound EXTREMITIES: 2+ pulses, warm, well-perfused, no edema. NEUROLOGICAL: Cranial nerves II through XII grossly intact. Normal speech, gait not observed. Laboratory Results - last 24 hr 03/20/17 03/21/17 03/21/17 20:55 12:00 12:00 WBC 9.1 7.7 RBC 2.87 L D 2.59 L Hgb 9.5 L D 8.5 L D Hct 28.0 L D 25.1 L MCV 97.5 H 97.1 H MCH 33.0 32.8 MCHC 33.9 33.7 RDW 19.7 H 19.0 H Plt Count 160 143 MPV 7.8 7.3 L Sodium 136 Potassium 4.2 Chloride 98 Carbon Dioxide 30 Anion Gap 8 BUN 65 H D Creatinine 13.3 H* D Random Glucose 91 Calcium 7.9 L Phosphorus 4.1 Active Medications Generic Name Dose Route Start Last Admin Trade Name Freq PRN Reason Stop Dose Admin Acetaminophen 650 mg 03/19/17 18:50 Tylenol - PO Q4H PRN PAIN OR FEVER Amino Acids 30 ml 03/20/17 10:00 03/21/17 09:23 Prosource No Carb Liquid Pkt PO 30 ml DAILY [facility] Administration Atorvastatin Calcium 20 mg 03/19/17 22:00 03/20/17 21:42 Lipitor - PO 20 mg HS [facility] Administration CEFTRIAXONE 1 G/50 ML PREMIX 50 mls @ 100 mls/hr 03/20/17 10:00 03/21/17 09: 23 Ceftriaxone 1 Gm-D5w Bag IVPB 100 mls/hr DAILY [facility] Administration Sevelamer Carbonate 1,600 mg 03/20/17 08:00 03/21/17 17:37 Renvela - PO 1,600 mg TIDCM [facility] Administration Tamsulosin HCl 0.4 mg 03/20/17 08:30 03/21/17 09:23 Flomax - PO 0.4 mg DAILY@0830 [facility] Administration ASSESSMENT/PLAN 81 year-old male with a PMH significant for HTN, HLD, ESRD on HD, CVA (2012), aortic valve replacement, afib on coumadin, and BPH s/p Urolift procedure on 03/17. Admitted for gross hematuria with obstructing clots and severe blood loss anemia. NKDA BPH --s/p recent Urolift procedure --continue Flomax Hematuria with clots Severe blood loss anemia --transfused 4U PRBC on 03/20 --h/h stable, transfuse <7.0 --03/19 US renal/bladder: 11.0 x 8.1 x 10.1 cm lesion in bladder, hematoma v. malignancy --urology following --abbott with frequent irrigation; no CBI Pyuria --03/19 UA >100WBCs, culture negative --continue ceftriaxone for now; repeated instrumentation, high risk for infection Elevated troponins --flat trending, likely secondary to demand ischemia from blood loss h/o CVA --no acute issues Atrial fibrillation --rate well-controlled --hold coumadin secondary to hematuria ESRD on HD MWF --HD today --continue sevelamer --trend phos Hypertension --BP stable --on no meds Hyperlipidemia --continue Lipitor Aortic valve replacement --no acute issues FEN Fluids: PO intake adequate Electrolytes: replete as indicated Nutrition: renal diete DVT prophylaxis: mechanical prophylaxis only due to bleeding; SCDs, oob, ambulation Physical therapy Dispo: continues to require inpatient care. Full code. Visit type - Emergency Visit Emergency Visit: Yes ED Registration Date: 03/20/17 Care time: The patient presented to the Emergency Department on the above date and was hospitalized for further evaluation of their emergent condition. - New Patient This patient is new to me today: Yes Date on this admission: 03/21/17 - Critical Care Critical Care patient: No
[2017-03-21] MEDS: ATORVASTATIN CA 20 MG TABLET (FP) PO SCH (22:31)
[2017-03-21] MEDS: ACETAMINOPHEN 325 MG TABLET (FP) PO PRN (23:38)
[2017-03-22 07:18] LABS: BASO % 0.4 % (0-2.0); EOS % 4.3 % (0-4.5); HEMATOCRIT 24.3 % (35.4-49); HEMOGLOBIN 8.4 GM/dL (11.7-16.9); LYMPH % 15.8 % (8-40); MCH 33.4 pg (25.7-33.7); MCHC 34.4 g/dl (32.0-35.9); MEAN CELL VOLUME 97.3 fl (80-96); MEAN PLT VOLUME 7.8 fl (7.5-11.1); MONO % 10.4 % (3.8-10.2); NEUT % 69.1 % (42.8-82.8); PLATELET COUNT 150 K/MM3 (134-434); RDW 18.2 % (11.9-15.9); WHITE BLOOD COUNT 6.3 K/mm3 (4.0-10.0)
[2017-03-22 07:34] LABS: ALBUMIN 2.8 g/dl (3.4-5.0); ANION GAP 7 (8-16); BILIRUBIN,TOTAL 0.7 mg/dL (0.2-1.0); BLOOD UREA NITROGEN 32 mg/dL (7-18); CALCIUM 7.6 mg/dL (8.5-10.1); CHLORIDE 103 mmol/L (98-107); CO2 30 mmol/L (21-32); GLUCOSE,RANDOM 82 mg/dL (74-106); PHOSPHOROUS 3.3 mg/dL (2.5-4.9); POTASSIUM 3.4 mmol/L (3.5-5.1); SGOT/AST 23 U/L (15-37); SGPT/ALT 18 U/L (12-78); SODIUM 140 mmol/L (136-145); TOT PROT 5.3 g/dl (6.4-8.2)
[2017-03-22 07:36] LABS: INR 1.28 (0.82-1.09); PROTHROMBIN TIME (PATIENT) 14.5 SEC (9.98-11.88)
[2017-03-22 07:39] LABS: ALK PHOS 77 U/L (45-117)
[2017-03-22 07:44] LABS: CREATININE 8.7 mg/dL (0.7-1.3)
--- NOTE | 2017-03-22 08:25 | PN ---
Physical Exam: SUBJECTIVE: Patient seen and examined OBJECTIVE: Vital Signs Period Temp Pulse Resp BP Sys/Tomas Pulse Ox Last 24 Hr 98 F-98.8 F 52-62 16-18 97-116/44-58 97-100 GENERAL: The patient is awake, alert, and fully oriented, in no acute distress. LUNGS: Mild bibasilar crackles HEART: Irregular, S1, S2, mechanical heart sounds ABDOMEN: Soft, nontender, nondistended, normoactive bowel sounds, no guarding, no rebound EXTREMITIES: 2+ pulses, warm, well-perfused, no edema. NEUROLOGICAL: Cranial nerves II through XII grossly intact. Normal speech, gait not observed. Laboratory Results - last 24 hr 03/21/17 03/21/17 03/22/17 12:00 12:00 06:08 WBC 7.7 6.3 RBC 2.59 L 2.50 L Hgb 8.5 L D 8.4 L Hct 25.1 L 24.3 L MCV 97.1 H 97.3 H MCH 32.8 33.4 MCHC 33.7 34.4 RDW 19.0 H 18.2 H Plt Count 143 150 MPV 7.3 L 7.8 Neutrophils % 69.1 Lymphocytes % 15.8 D Monocytes % 10.4 H Eosinophils % 4.3 D Basophils % 0.4 PT with INR INR Sodium 136 Potassium 4.2 Chloride 98 Carbon Dioxide 30 Anion Gap 8 BUN 65 H D Creatinine 13.3 H* D Creat Clearance w eGFR Random Glucose 91 Calcium 7.9 L Phosphorus 4.1 Magnesium Total Bilirubin AST ALT Alkaline Phosphatase Total Protein Albumin 03/22/17 03/22/17 06:08 06:08 WBC RBC Hgb Hct MCV MCH MCHC RDW Plt Count MPV Neutrophils % Lymphocytes % Monocytes % Eosinophils % Basophils % PT with INR 14.50 H INR 1.28 H D Sodium 140 Potassium 3.4 L Chloride 103 Carbon Dioxide 30 Anion Gap 7 L BUN 32 H D Creatinine 8.7 H* D Creat Clearance w eGFR 5.89 Random Glucose 82 Calcium 7.6 L Phosphorus 3.3 Magnesium 2.0 Total Bilirubin 0.7 D AST 23 ALT 18 Alkaline Phosphatase 77 Total Protein 5.3 L Albumin 2.8 L Active Medications Generic Name Dose Route Start Last Admin Trade Name Freq PRN Reason Stop Dose Admin Acetaminophen 650 mg 03/19/17 18:50 03/21/17 23:38 Tylenol - PO 650 mg Q4H PRN Administration PAIN OR FEVER Amino Acids 30 ml 03/20/17 10:00 03/21/17 09:23 Prosource No Carb Liquid Pkt PO 30 ml DAILY [facility] Administration Atorvastatin Calcium 20 mg 03/19/17 22:00 03/21/17 22:31 Lipitor - PO 20 mg HS [facility] Administration CEFTRIAXONE 1 G/50 ML PREMIX 50 mls @ 100 mls/hr 03/20/17 10:00 03/21/17 09: 23 Ceftriaxone 1 Gm-D5w Bag IVPB 100 mls/hr DAILY [facility] Administration Potassium Chloride 40 meq 03/22/17 08:30 K-Dur - PO 03/22/17 14:31 Q6H GRIS[facility] Sevelamer Carbonate 1,600 mg 03/20/17 08:00 03/21/17 17:37 Renvela - PO 1,600 mg TIDCM [facility] Administration Tamsulosin HCl 0.4 mg 03/20/17 08:30 03/21/17 09:23 Flomax - PO 0.4 mg DAILY@0830 [facility] Administration ASSESSMENT/PLAN 81 year-old male with a PMH significant for HTN, HLD, ESRD on HD, CVA (2012), aortic valve replacement, afib on coumadin, and BPH s/p Urolift procedure on 03/17. Admitted for gross hematuria with obstructing clots and severe blood loss anemia. BPH --s/p Urolift procedure 03/17/17 --continue Flomax Hematuria with clots Severe blood loss anemia Bladder lesion, hematoma v. malignancy --ant bloody urine persists, fewer clots --last transfused 4U PRBC on 03/20 --03/19 US renal/bladder: 11.0 x 8.1 x 10.1 cm lesion in bladder, hematoma v. malignancy; discussed with Dr. Bose who states this is not a surgical issue, is it a bleeding issue, no further surgical intervention indicated at this time per Dr. Bose --heme/onc consult requested Aortic valve replacement --mechanical heart sounds heard on exam; appears patient had valve replacement in 10/2016; patient is poor historian, originally said surgery was at [facility], then [facility], then [facility], attempting to verify --with mechanical valve, INR needs to be 3.0--3.5; INR dropped to 1.28 today but patient still with active bleeding --start heparin drip; cbc q4h; transfuse <7.0 --cardiology consult requested Pyuria --03/19 UA >100WBCs, culture negative --continue ceftriaxone for now; repeated instrumentation, high risk for infection Elevated troponins --flat trending, likely secondary to demand ischemia from blood loss h/o CVA --no acute issues Atrial fibrillation --rate well-controlled --on heparin drip ESRD on HD MWF --HD today --continue sevelamer --trend phos Hypertension --BP stable --on no meds Hyperlipidemia --continue Lipitor FEN Fluids: PO intake adequate Electrolytes: replete as indicated Nutrition: renal diet DVT prophylaxis: heparin drip; SCDs, oob, ambulation Physical therapy Dispo: continues to require inpatient care. Full code. Visit type - Emergency Visit Emergency Visit: Yes ED Registration Date: 03/20/17 Care time: The patient presented to the Emergency Department on the above date and was hospitalized for further evaluation of their emergent condition. - New Patient This patient is new to me today: No - Critical Care Critical Care patient: No
[2017-03-22] MEDS: SEVELAMER CARBONATE 800 MG TAB (FP) PO SCH ×3 (08:52→17:41)
[2017-03-22] MEDS: TAMSULOSIN HCL 0.4 MG CAP.ER.24H (FP) PO SCH (08:53)
[2017-03-22] MEDS: POTASSIUM CHLORIDE TABS 20 MEQ TABLET.ER (FP) PO SCH ×2 (08:53→14:46)
[2017-03-22] MEDS: AMINO ACIDS/PROTEIN HYDROLYS 30 ML LIQUID.PKT PO SCH (09:59)
[2017-03-22] MEDS: CEFTRIAXONE 1 G/50 ML PREMIX 50 ML IVPB SCH (09:59)
--- NOTE | 2017-03-22 11:58 | PN ---
Progress Note (short form) - Note Progress Note: [id number] persistant darkish no clotts Problem List - Problems (1) Hematuria Assessment/Plan: cont follow hct and coagulation parameters abbott to sd Cont irrigation Cont med management Code(s): R31.9 - HEMATURIA, UNSPECIFIED
--- NOTE | 2017-03-22 15:59 | PN ---
Progress Note (short form) - Note Progress Note: Renal follow up for ESRD on HD Pt seen and examined at the bedside awake and alert continues to have ant blood in abbott catheter no sob, chest pain, abd pain Vital Signs Temperature 98.4 F 03/22/17 14:18 Pulse Rate 88 03/22/17 14:18 Respiratory Rate 18 03/22/17 14:18 Blood Pressure 122/63 03/22/17 14:18 O2 Sat by Pulse Oximetry (%) 100 03/21/17 21:00 Intake & Output 03/19/17 03/20/17 03/21/17 03/22/17 23:59 23:59 23:59 23:59 Intake Total 120 1810 360 190 Output Total 350 1260 675 Balance -230 550 -315 190 Weight 84.822 kg 86.228 kg 84.459 kg NAD awake and alert RRR, + systolic click CTA soft NT/ND No LE edema abbott in place with bloody urine CBC, BMP 03/22/17 06:08 03/22/17 06:08 Current Medications Acetaminophen (Tylenol -) 650 mg PO Q4H PRN PRN Reason: PAIN OR FEVER Last Admin: 03/21/17 23:38 Dose: 650 mg Amino Acids (Prosource No Carb Liquid Pkt) 30 ml PO DAILY [facility] Last Admin: 03/22/17 09:59 Dose: 30 ml Atorvastatin Calcium (Lipitor -) 20 mg PO HS [facility] Last Admin: 03/21/17 22:31 Dose: 20 mg CEFTRIAXONE 1 G/50 ML PREMIX (Ceftriaxone 1 Gm-D5w Bag) 50 mls @ 100 mls/hr IVPB DAILY [facility] Last Admin: 03/22/17 09:59 Dose: 100 mls/hr Sevelamer Carbonate (Renvela -) 1,600 mg PO TIDCM [facility] Last Admin: 03/22/17 12:59 Dose: 1,600 mg Tamsulosin HCl (Flomax -) 0.4 mg PO DAILY@0830 [facility] Last Admin: 03/22/17 08:53 Dose: 0.4 mg 86 year old gentleman wit PMhx of ESRD on HD (MWF x 1.5 years), Hypertension, MVR on Coumadin recent urolift procedure who presented with clogged abbott catheter and hematuira. #ESRD on HD s/p dialysis yesterday next treatment planned for tomorrow dose all meds for intermittent HD #Gross Hematuria abbott in place trend CBC Urology follow up #MVR on Coumadin continue warfarin check INR #Renal Osteodystrophy continue phos binder with meals trend phos levels Lamonte Kapadia DO
[2017-03-22] MEDS ORDERED: HEPARIN NA (PORCINE) 5,000 UNITS/ML 1ML VIAL IVPUSH PRN ×2 (16:36)
[2017-03-22 18:20] LABS: HEMATOCRIT 28.2 % (35.4-49); HEMOGLOBIN 9.5 GM/dL (11.7-16.9); MCH 33.5 pg (25.7-33.7); MCHC 33.8 g/dl (32.0-35.9); MEAN CELL VOLUME 99.1 fl (80-96); PLATELET COUNT 161 K/MM3 (134-434); RBC 2.84 M/mm3 (4.00-5.60); WHITE BLOOD COUNT 6.5 K/mm3 (4.0-10.0)
[2017-03-22] MEDS: HEPARIN - 25,000 UNIT in SODIUM CHLORIDE 495 ML IV SCH (20:12)
[2017-03-22] MEDS: ATORVASTATIN CA 20 MG TABLET (FP) PO SCH (22:17)
[2017-03-23 03:01] LABS: HEMATOCRIT 25.2 % (35.4-49); HEMOGLOBIN 8.3 GM/dL (11.7-16.9); MCHC 33.1 g/dl (32.0-35.9); MEAN CELL VOLUME 99.5 fl (80-96); MEAN PLT VOLUME 8.3 fl (7.5-11.1); PLATELET COUNT 167 K/MM3 (134-434); RBC 2.53 M/mm3 (4.00-5.60); RDW 17.9 % (11.9-15.9); WHITE BLOOD COUNT 6.4 K/mm3 (4.0-10.0)
[2017-03-23 06:06] LABS: HBSAG SCREEN Negative (Negative); HEP B CORE AB, TOT Negative (Negative)
[2017-03-23 07:09] LABS: INR 1.16 (0.82-1.09); PROTHROMBIN TIME (PATIENT) 13.1 SEC (9.98-11.88)
[2017-03-23 07:25] LABS: HEMATOCRIT 24.7 % (35.4-49); HEMOGLOBIN 8.3 GM/dL (11.7-16.9); MCH 33.3 pg (25.7-33.7); MCHC 33.7 g/dl (32.0-35.9); MEAN CELL VOLUME 98.9 fl (80-96); MEAN PLT VOLUME 8.2 fl (7.5-11.1); PLATELET COUNT 159 K/MM3 (134-434); RDW 17.4 % (11.9-15.9); WHITE BLOOD COUNT 6.5 K/mm3 (4.0-10.0)
[2017-03-23] MEDS: SEVELAMER CARBONATE 800 MG TAB (FP) PO SCH ×3 (10:15→18:02)
[2017-03-23] MEDS: AMINO ACIDS/PROTEIN HYDROLYS 30 ML LIQUID.PKT PO SCH (10:15)
[2017-03-23] MEDS: TAMSULOSIN HCL 0.4 MG CAP.ER.24H (FP) PO SCH (10:16)
[2017-03-23] MEDS ORDERED: EPOETIN ALFA 10,000 UNIT/1 ML VIAL SQ ONE (11:00)
--- NOTE | 2017-03-23 11:29 | CONSULT ---
Consult Consult Specialty:: hematology - History of Present Illness History of Present Illness: 81 year old male with a pmhx of ESRD on HD, CVA, afib on coumadin, reports history of mechanical AVR and mitral valve repair at [facility] in 2000, and bph s/p recent procedure. Admitted with hematuria/clots/severe anemia Consulted for bleeding/in the setting of MVR. Pt seen and examined chart reviewed in detail All consult notes reviewed Pt was on coumadin thus far - History Source History Provided By: Patient, Medical Record - Alcohol/Substance Use Hx Alcohol Use: No - Smoking History Smoking history: Never smoked Have you smoked in the past 12 months: No Home Medications - Allergies Allergies/Adverse Reactions: Allergies Allergy/AdvReac Type Severity Reaction Status Date / Time No Known Allergies Allergy Verified 03/19/17 10:07 - Home Medications Home Medications: Ambulatory Orders Amino Acids/Protein Hydrolys [Proteinex-18 Liquid] 30 ml PO DAILY 03/19/17 Atorvastatin Ca [Lipitor] 20 mg PO HS 03/19/17 Sevelamer Carbonate 1,600 mg PO TID 03/19/17 Silodosin [Rapaflo] 8 mg PO DAILY 03/19/17 Warfarin Na [Coumadin] 5 mg PO DAILY 03/19/17 Review of Systems - Review of Systems Constitutional: denies: Fever, Lethargy Cardiovascular: denies: Chest Pain, Edema, Palpitations Gastrointestinal: denies: Abdominal Pain Neurological: denies: Change in LOC, Change in Speech Endocrine: reports: No Symptoms Hematology/Lymphatic: reports: Excessive Bleeding Physical Exam Vital Signs: Vital Signs Temperature 98.4 F 03/23/17 10:25 Pulse Rate 58 L 03/23/17 10:25 Respiratory Rate 18 03/23/17 10:25 Blood Pressure 118/50 03/23/17 10:25 O2 Sat by Pulse Oximetry (%) 100 03/22/17 21:00 Constitutional: Yes: No Distress, Calm Eyes: Yes: Conjunctiva Clear HENT: Yes: Atraumatic, Normocephalic Neck: Yes: Supple, Trachea Midline Cardiovascular: Yes: Regular Rate and Rhythm Respiratory: Yes: Regular, CTA Bilaterally Gastrointestinal: Yes: Normal Bowel Sounds, Soft Extremities: Yes: WNL Edema: No Neurological: Yes: Alert, Oriented Psychiatric: Yes: Alert Labs: CBC, BMP 03/23/17 06:25 03/22/17 06:08 Imaging - Results Ultrasound: Report Reviewed Assessment/Plan Anemia In the setting of bleeding ( hematuria ) ( also has ESRD and other co-morbids) pt is on AC for hx of mechanical valve. cardiology eval noted. will give supportive transfusions ( s/p 2U PRBC today) Fibronolytic agents do come with Adverse events especially in cardio-renal pts, seems like the bleeding is better, if bleeding not controlled at all, then might need to consider. EPO per renal protocol screening anemia w/u hematuria: GI eval noted ESRD: s/p HD today. h/o CVA
[2017-03-23 11:35] LABS: HEMOGLOBIN 7.6 GM/dL (11.7-16.9); MCH 32.9 pg (25.7-33.7); MCHC 33.1 g/dl (32.0-35.9); MEAN CELL VOLUME 99.5 fl (80-96); MEAN PLT VOLUME 7.9 fl (7.5-11.1); PLATELET COUNT 153 K/MM3 (134-434); RBC 2.31 M/mm3 (4.00-5.60); RDW 17.5 % (11.9-15.9); WHITE BLOOD COUNT 5.5 K/mm3 (4.0-10.0)
[2017-03-23 12:02] LABS: ANION GAP 8 (8-16); BLOOD UREA NITROGEN 36 mg/dL (7-18); CALCIUM 7.5 mg/dL (8.5-10.1); CHLORIDE 107 mmol/L (98-107); CO2 28 mmol/L (21-32); GLUCOSE,RANDOM 146 mg/dL (74-106); POTASSIUM 3.3 mmol/L (3.5-5.1); SODIUM 143 mmol/L (136-145)
[2017-03-23 12:11] LABS: PHOSPHOROUS 2.5 mg/dL (2.5-4.9)
[2017-03-23 12:18] LABS: CREATININE 8.3 mg/dL (0.7-1.3)
--- NOTE | 2017-03-23 12:34 | PN ---
Progress Note (short form) - Note Progress Note: Renal follow up for ESRD on HD Pt seen and examined during dialysis BP stable, access with good funtion goal UF is 2.5L to get 2 PRBC with HD on 3k bath pt without any acute complaints. Vital Signs Temperature 98.4 F 03/23/17 10:25 Pulse Rate 54 L 03/23/17 12:00 Respiratory Rate 18 03/23/17 12:00 Blood Pressure 140/62 03/23/17 12:00 O2 Sat by Pulse Oximetry (%) 100 03/22/17 21:00 Intake & Output 03/20/17 03/21/17 03/22/17 03/23/17 23:59 23:59 23:59 23:59 Intake Total 1810 360 390 326 Output Total 1260 675 200 60 Balance 550 -315 190 266 Weight 86.228 kg 84.459 kg 84.368 kg NAD RRR, + systolic click CTA soft NT/ND No LE edema abbott in place with bloody urine CBC, BMP 03/23/17 10:30 03/23/17 10:30 Current Medications Acetaminophen (Tylenol -) 650 mg PO Q4H PRN PRN Reason: PAIN OR FEVER Last Admin: 03/21/17 23:38 Dose: 650 mg Amino Acids (Prosource No Carb Liquid Pkt) 30 ml PO DAILY GRISLE Last Admin: 03/23/17 10:15 Dose: 30 ml Atorvastatin Calcium (Lipitor -) 20 mg PO HS GRISEL Last Admin: 03/22/17 22:17 Dose: 20 mg Heparin Sodium (Porcine) (Heparin -) 1,000 unit IVPUSH PRN PRN PRN Reason: Heparin Heparin Sodium (Porcine) (Heparin -) 5,000 unit IVPUSH PRN PRN PRN Reason: Heparin CEFTRIAXONE 1 G/50 ML PREMIX (Ceftriaxone 1 Gm-D5w Bag) 50 mls @ 100 mls/hr IVPB DAILY GRISEL Last Admin: 03/22/17 09:59 Dose: 100 mls/hr Heparin Sodium (Porcine) 25, (000 unit/ Sodium Chloride) 500 mls @ 27.2 mls/hr IV TITR GRISEL; 1,360 UNIT/HR PRN Reason: Protocol Last Admin: 03/22/17 20:12 Dose: 1,360 unit/hr, 27.2 mls/hr Sevelamer Carbonate (Renvela -) 1,600 mg PO TIDCM [facility] Last Admin: 03/23/17 10:15 Dose: 1,600 mg Tamsulosin HCl (Flomax -) 0.4 mg PO DAILY@0830 [facility] Last Admin: 03/23/17 10:16 Dose: 0.4 mg 86 year old gentleman wit PMhx of ESRD on HD (MWF x 1.5 years), Hypertension, MVR on Coumadin recent urolift procedure who presented with clogged abbott catheter and hematuira. #ESRD on HD pt tolerating dialysis well today goal UF 2.5L will maintain on 3x weekly HD as inpatient #Gross Hematuria abbott in place trend CBC Urology follow up Heme consulted #MVR on Coumadin continue warfarin check INR #Renal Osteodystrophy continue phos binder with meals trend phos levels Lamonte Kapadia DO
[2017-03-23] MEDS: HEPARIN - 25,000 UNIT in SODIUM CHLORIDE 495 ML IV SCH (14:00)
[2017-03-23] MEDS: CEFTRIAXONE 1 G/50 ML PREMIX 50 ML IVPB SCH (14:41)
--- NOTE | 2017-03-23 14:57 | CON.CARD ---
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 Reports was on Abx as well as coumadin being bridged with injections. No chest pain, sob, or palpitations. No pnd, orthopnea, or edema. No syncope or near syncope. - History Source History Provided By: Patient, Medical Record - Past Medical History FOLDER OPERATOR: Yes: CVA Cardio/Vascular: Yes: AFIB, HTN, Other (aortic and mitral disease s/p surgery 2000) Renal/: Yes: Renal Failure - Past Surgical History Past Surgical History: Yes: Valve Replacement - Alcohol/Substance Use Hx Alcohol Use: No - Smoking History Smoking history: Never smoked Have you smoked in the past 12 months: No Home Medications - Allergies Allergies/Adverse Reactions: Allergies Allergy/AdvReac Type Severity Reaction Status Date / Time No Known Allergies Allergy Verified 03/19/17 10:07 - Home Medications Home Medications: Ambulatory Orders Amino Acids/Protein Hydrolys [Proteinex-18 Liquid] 30 ml PO DAILY 03/19/17 Atorvastatin Ca [Lipitor] 20 mg PO HS 03/19/17 Sevelamer Carbonate 1,600 mg PO TID 03/19/17 Silodosin [Rapaflo] 8 mg PO DAILY 03/19/17 Warfarin Na [Coumadin] 5 mg PO DAILY 03/19/17 Vital Signs: Vital Signs Temperature 98.4 F 03/23/17 10:25 Pulse Rate 59 L 03/23/17 14:03 Respiratory Rate 18 03/23/17 14:03 Blood Pressure 128/65 03/23/17 14:03 O2 Sat by Pulse Oximetry (%) 100 03/23/17 09:00 Constitutional: Yes: No Distress Neck: Yes: Supple Respiratory: Yes: CTA Bilaterally Gastrointestinal: Yes: Normal Bowel Sounds, Soft Cardiovascular: Yes: Pulse Irregular JVD: Yes Carotid Bruit: No Heart Sounds: Yes: S1, S2, Clicks (click in upper sternal border) Murmur: Yes: Systolic Murmur (2/6 HSM apex) Edema: No (+RUE AVF) - Other Data Labs, Other Data: CBC, BMP 03/23/17 10:30 03/23/17 10:30 INR, PTT INR 1.16 (0.82-1.09) H 03/23/17 06:25 Imaging - Results Chest X-ray: Report Reviewed EKG: Image Reviewed Assessment/Plan 81 year old male with a pmhx of ESRD on HD, CVA, afib on coumadin, reports history of mechanical AVR and mitral valve repair at [facility] in 2000, and bph s/p recent prostate procedure and presenting to ER with bladder pressure and bleeding from penis. Reports was on Abx as well as coumadin being bridged with injections. No chest pain, sob, or palpitations. No pnd, orthopnea, or edema. No syncope or near syncope. 1) Afib with history of valve replacement -Afib on tele with HR 50s-60s with no significant pauses. No av chip blocking agents -Reports that he has a mechanical aortic valve and h/o mitral repair. Would consider clarifying with his hha at [facility] Would continue anticoagulation given history. Currently on heparin drip.
--- NOTE | 2017-03-23 18:41 | PN ---
Physical Exam: SUBJECTIVE: Patient seen and examined OBJECTIVE: Vital Signs Period Temp Pulse Resp BP Sys/Tomas Pulse Ox Last 24 Hr 98.1 F-98.4 F 50-62 14-18 105-140/50-67 100-100 GENERAL: The patient is awake, alert, and fully oriented, in no acute distress. LUNGS: Mild bibasilar crackles HEART: Irregular, S1, S2, mechanical heart sounds ABDOMEN: Soft, nontender, nondistended, normoactive bowel sounds, no guarding, no rebound EXTREMITIES: 2+ pulses, warm, well-perfused, no edema. NEUROLOGICAL: Cranial nerves II through XII grossly intact. Normal speech, gait not observed. : abbott draining bloody urine, folder hand, no clots Laboratory Results - last 24 hr 03/19/17 03/21/17 03/22/17 22:55 15:00 17:55 WBC RBC Hgb Hct MCV MCH MCHC RDW Plt Count MPV PT with INR INR PTT (Actin FS) Sodium Potassium Chloride Carbon Dioxide Anion Gap BUN Creatinine Random Glucose Calcium Phosphorus Hepatitis A Ab Total Negative Hep Bs Antigen Negative Hep Bs Antibody Reactive Hep B Core Total Ab Negative Hepatitis C Antibody 0.2 Blood Type O NEGATIVE O NEGATIVE Antibody Screen Negative Negative Crossmatch See Detail See Detail 03/22/17 03/23/17 03/23/17 17:55 02:00 06:25 WBC 6.4 6.5 RBC 2.53 L 2.50 L Hgb 8.3 L D 8.3 L Hct 25.2 L 24.7 L MCV 99.5 H 98.9 H MCH 33.0 33.3 MCHC 33.1 33.7 RDW 17.9 H 17.4 H Plt Count 167 159 MPV 8.3 8.2 PT with INR INR PTT (Actin FS) 18.8 L Sodium Potassium Chloride Carbon Dioxide Anion Gap BUN Creatinine Random Glucose Calcium Phosphorus Hepatitis A Ab Total Hep Bs Antigen Hep Bs Antibody Hep B Core Total Ab Hepatitis C Antibody Blood Type Antibody Screen Crossmatch 03/23/17 03/23/17 03/23/17 06:25 10:05 10:30 WBC 5.5 RBC 2.31 L Hgb 7.6 L Hct 23.0 L MCV 99.5 H MCH 32.9 MCHC 33.1 RDW 17.5 H Plt Count 153 MPV 7.9 PT with INR 13.10 H INR 1.16 H PTT (Actin FS) 50.4 H D Sodium Potassium Chloride Carbon Dioxide Anion Gap BUN Creatinine Random Glucose Calcium Phosphorus Hepatitis A Ab Total Hep Bs Antigen Hep Bs Antibody Hep B Core Total Ab Hepatitis C Antibody Blood Type Antibody Screen Crossmatch 03/23/17 10:30 WBC RBC Hgb Hct MCV MCH MCHC RDW Plt Count MPV PT with INR INR PTT (Actin FS) Sodium 143 Potassium 3.3 L Chloride 107 Carbon Dioxide 28 Anion Gap 8 BUN 36 H Creatinine 8.3 H* Random Glucose 146 H D Calcium 7.5 L Phosphorus 2.5 D Hepatitis A Ab Total Hep Bs Antigen Hep Bs Antibody Hep B Core Total Ab Hepatitis C Antibody Blood Type Antibody Screen Crossmatch Active Medications Generic Name Dose Route Start Last Admin Trade Name Freq PRN Reason Stop Dose Admin Acetaminophen 650 mg 03/19/17 18:50 03/21/17 23:38 Tylenol - PO 650 mg Q4H PRN Administration PAIN OR FEVER Amino Acids 30 ml 03/20/17 10:00 03/23/17 10:15 Prosource No Carb Liquid Pkt PO 30 ml DAILY GRISEL Administration Atorvastatin Calcium 20 mg 03/19/17 22:00 03/22/17 22:17 Lipitor - PO 20 mg HS GRISEL Administration Heparin Sodium (Porcine) 1,000 unit 03/22/17 16:36 Heparin - IVPUSH PRN PRN Heparin Heparin Sodium (Porcine) 5,000 unit 03/22/17 16:36 Heparin - IVPUSH PRN PRN Heparin CEFTRIAXONE 1 G/50 ML PREMIX 50 mls @ 100 mls/hr 03/20/17 10:00 03/23/17 14: 41 Ceftriaxone 1 Gm-D5w Bag IVPB 100 mls/hr DAILY GRISEL Administration Heparin Sodium (Porcine) 25, 500 mls @ 27.2 mls/hr 03/22/17 16:45 03/23/17 14 :00 000 unit/ Sodium Chloride IV 1,360 unit/hr TITR GRISEL 27.2 mls/hr Protocol Administration 1,360 UNIT/HR Sevelamer Carbonate 1,600 mg 03/20/17 08:00 03/23/17 18:02 Renvela - PO 1,600 mg TIDCM [facility] Administration Tamsulosin HCl 0.4 mg 03/20/17 08:30 03/23/17 10:16 Flomax - PO 0.4 mg DAILY@0830 [facility] Administration ASSESSMENT/PLAN 81 year-old male with a PMH significant for HTN, HLD, ESRD on HD, CVA (2012), aortic valve replacement, afib on coumadin, and BPH s/p Urolift procedure on 03/17. Admitted for gross hematuria with obstructing clots and severe blood loss anemia. BPH --s/p Urolift procedure 03/17/17 --continue Flomax Hematuria with clots Severe blood loss anemia Bladder lesion, hematoma v. malignancy --urine slightly folder hand today, no clots --transfused 4U PRBC on 03/20 --Hgb has dropped to 7.6 today, transfuse 2U PRBC --03/19 US renal/bladder: 11.0 x 8.1 x 10.1 cm lesion in bladder, hematoma v. malignancy; discussed with Dr. Bose who states this is not a surgical issue, is it a bleeding issue, no further surgical intervention indicated at this time per Dr. Bose --heme/onc consult following Aortic valve replacement --mechanical heart sounds heard on exam; appears patient had valve replacement in 10/2016; patient is poor historian, originally said surgery was at [facility], then [facility], then [facility], attempting to verify --with mechanical valve, INR needs to be 3.0--3.5 --continue heparin drip; PTT goal 50-70; cbc q6h --cardiology following Pyuria --03/19 UA >100WBCs, culture negative --continue ceftriaxone for now; repeated instrumentation, high risk for infection Elevated troponins --flat trending, likely secondary to demand ischemia from blood loss h/o CVA --no acute issues Atrial fibrillation --rate well-controlled --on heparin drip ESRD on HD MWF --continue sevelamer --trend phos Hypertension --BP stable --on no meds Hyperlipidemia --continue Lipitor FEN Fluids: PO intake adequate Electrolytes: replete as indicated Nutrition: renal diet DVT prophylaxis: heparin drip; SCDs, oob, ambulation Physical therapy Dispo: continues to require inpatient care. Full code. Visit type - Emergency Visit Emergency Visit: Yes ED Registration Date: 03/20/17 Care time: The patient presented to the Emergency Department on the above date and was hospitalized for further evaluation of their emergent condition. - New Patient This patient is new to me today: No - Critical Care Critical Care patient: No
[2017-03-23 18:53] LABS: HEMATOCRIT 30.8 % (35.4-49); HEMOGLOBIN 10.4 GM/dL (11.7-16.9); MCH 32.9 pg (25.7-33.7); MCHC 33.6 g/dl (32.0-35.9); MEAN CELL VOLUME 97.8 fl (80-96); MEAN PLT VOLUME 8.3 fl (7.5-11.1); PLATELET COUNT 179 K/MM3 (134-434); RBC 3.15 M/mm3 (4.00-5.60); RDW 18.5 % (11.9-15.9)
[2017-03-23] MEDS ORDERED: PT OWN MED DRAWER 7, Y5N ONE (20:40)
[2017-03-23] MEDS: ATORVASTATIN CA 20 MG TABLET (FP) PO SCH (21:26)
[2017-03-24 06:36] LABS: BASO % 0.5 % (0-2.0); EOS % 5.4 % (0-4.5); HEMATOCRIT 28.5 % (35.4-49); HEMOGLOBIN 9.7 GM/dL (11.7-16.9); LYMPH % 14.2 % (8-40); MCH 32.8 pg (25.7-33.7); MCHC 33.8 g/dl (32.0-35.9); MEAN CELL VOLUME 96.9 fl (80-96); MEAN PLT VOLUME 8.1 fl (7.5-11.1); MONO % 9.4 % (3.8-10.2); NEUT % 70.5 % (42.8-82.8); PLATELET COUNT 191 K/MM3 (134-434); RBC 2.95 M/mm3 (4.00-5.60); RDW 18.2 % (11.9-15.9); WHITE BLOOD COUNT 7.3 K/mm3 (4.0-10.0)
[2017-03-24 07:11] LABS: ANION GAP 7 (8-16); BLOOD UREA NITROGEN 28 mg/dL (7-18); CALCIUM 8.2 mg/dL (8.5-10.1); CHLORIDE 106 mmol/L (98-107); CO2 31 mmol/L (21-32); GLUCOSE,RANDOM 86 mg/dL (74-106); POTASSIUM 3.9 mmol/L (3.5-5.1); SODIUM 144 mmol/L (136-145)
[2017-03-24 07:45] LABS: CREATININE 7.6 mg/dL (0.7-1.3)
[2017-03-24 07:58] LABS: MAGNESIUM 1.9 mg/dL (1.8-2.4)
[2017-03-24] MEDS: SEVELAMER CARBONATE 800 MG TAB (FP) PO SCH ×3 (08:34→17:26)
[2017-03-24] MEDS: TAMSULOSIN HCL 0.4 MG CAP.ER.24H (FP) PO SCH (08:34)
[2017-03-24] MEDS: AMINO ACIDS/PROTEIN HYDROLYS 30 ML LIQUID.PKT PO SCH (09:57)
[2017-03-24] MEDS: CEFTRIAXONE 1 G/50 ML PREMIX 50 ML IVPB SCH (09:57)
[2017-03-24] MEDS: HEPARIN - 25,000 UNIT in SODIUM CHLORIDE 495 ML IV SCH (10:00)
[2017-03-24] MEDS: ACETAMINOPHEN 325 MG TABLET (FP) PO PRN (10:28)
--- NOTE | 2017-03-24 13:24 | PN ---
Progress Note, Physician Chief Complaint: No complaints History of Present Illness: 81 year old male with a pmhx of ESRD on HD, CVA, afib on coumadin, reports history of mechanical AVR and mitral valve repair at [facility] in 2000, and bph s/p recent prostate procedure and presenting to ER with bladder pressure and bleeding from penis. Reports was on Abx as well as coumadin being bridged with injections. No chest pain, sob, or palpitations. No pnd, orthopnea, or edema. No syncope or near syncope. - Current Medication List Current Medications: Active Medications Acetaminophen (Tylenol -) 650 mg PO Q4H PRN PRN Reason: PAIN OR FEVER Last Admin: 03/24/17 10:28 Dose: 650 mg Amino Acids (Prosource No Carb Liquid Pkt) 30 ml PO DAILY [facility] Last Admin: 03/24/17 09:57 Dose: 30 ml Atorvastatin Calcium (Lipitor -) 20 mg PO HS GRISEL Last Admin: 03/23/17 21:26 Dose: 20 mg Heparin Sodium (Porcine) (Heparin -) 1,000 unit IVPUSH PRN PRN PRN Reason: Heparin Heparin Sodium (Porcine) (Heparin -) 5,000 unit IVPUSH PRN PRN PRN Reason: Heparin CEFTRIAXONE 1 G/50 ML PREMIX (Ceftriaxone 1 Gm-D5w Bag) 50 mls @ 100 mls/hr IVPB DAILY GRISEL Last Admin: 03/24/17 09:57 Dose: 100 mls/hr Heparin Sodium (Porcine) 25, (000 unit/ Sodium Chloride) 500 mls @ 27.2 mls/hr IV TITR GRISEL; 1,360 UNIT/HR PRN Reason: Protocol Last Admin: 03/23/17 14:00 Dose: 1,360 unit/hr, 27.2 mls/hr Sevelamer Carbonate (Renvela -) 1,600 mg PO TIDCM [facility] Last Admin: 03/24/17 08:34 Dose: 1,600 mg Tamsulosin HCl (Flomax -) 0.4 mg PO DAILY@0830 [facility] Last Admin: 03/24/17 08:34 Dose: 0.4 mg - Objective Vital Signs: Vital Signs Temperature 98.2 F 03/24/17 08:30 Pulse Rate 58 L 03/24/17 08:30 Respiratory Rate 16 03/24/17 09:00 Blood Pressure 150/68 03/24/17 08:30 O2 Sat by Pulse Oximetry (%) 100 03/24/17 09:00 Constitutional: Yes: No Distress Cardiovascular: Yes: Regular Rate and Rhythm, Bradycardia, Murmur (2/6 HSM upper sternal border), S1, S2, Other (Click in upper sternal border) Respiratory: Yes: CTA Bilaterally Gastrointestinal: Yes: Normal Bowel Sounds, Soft Edema: No Labs: CBC, BMP 03/24/17 06:15 03/24/17 06:15 INR, PTT INR 1.16 (0.82-1.09) H 03/23/17 06:25 Assessment/Plan 81 year old male with a pmhx of ESRD on HD, CVA, afib on coumadin, reports history of mechanical AVR and mitral valve repair at [facility] in 2000, and bph s/p recent prostate procedure and presenting to ER with bladder pressure and bleeding from penis. Reports was on Abx as well as coumadin being bridged with injections. No chest pain, sob, or palpitations. No pnd, orthopnea, or edema. No syncope or near syncope. 1) Afib with history of valve replacement -Afib on tele with HR 50s-60s with no significant pauses. No av chip blocking agents -Reports that he has a mechanical aortic valve and h/o mitral repair. Would consider clarifying with his renewals specialist at [facility] Would continue anticoagulation given history. Currently on heparin drip. Would restart coumadin when possible as per surgical/urology team
--- NOTE | 2017-03-24 14:11 | PN ---
Progress Note (short form) - Note Progress Note: Subjective: The patient was seen and examined at the bedside, he has no complaints at this time Kwan catheter with dark, red urine, some clots present Current Medications Generic Name Dose Route Start Last Admin Trade Name Davidq PRN Reason Stop Dose Admin Acetaminophen 650 mg 03/19/17 18:50 03/24/17 10:28 Tylenol - PO 650 mg Q4H PRN Administration PAIN OR FEVER Amino Acids 30 ml 03/20/17 10:00 03/24/17 09:57 Prosource No Carb Liquid Pkt PO 30 ml DAILY GRISEL Administration Atorvastatin Calcium 20 mg 03/19/17 22:00 03/23/17 21:26 Lipitor - PO 20 mg HS GRISEL Administration Heparin Sodium (Porcine) 1,000 unit 03/22/17 16:36 Heparin - IVPUSH PRN PRN Heparin Heparin Sodium (Porcine) 5,000 unit 03/22/17 16:36 Heparin - IVPUSH PRN PRN Heparin CEFTRIAXONE 1 G/50 ML PREMIX 50 mls @ 100 mls/hr 03/20/17 10:00 03/24/17 09: 57 Ceftriaxone 1 Gm-D5w Bag IVPB 100 mls/hr DAILY GRISEL Administration Heparin Sodium (Porcine) 25, 500 mls @ 27.2 mls/hr 03/22/17 16:45 03/23/17 14 :00 000 unit/ Sodium Chloride IV 1,360 unit/hr TITR GRISEL 27.2 mls/hr Protocol Administration 1,360 UNIT/HR Sevelamer Carbonate 1,600 mg 03/20/17 08:00 03/24/17 08:34 Renvela - PO 1,600 mg TIDCM [facility] Administration Tamsulosin HCl 0.4 mg 03/20/17 08:30 03/24/17 08:34 Flomax - PO 0.4 mg DAILY@0830 [facility] Administration Objective: Vital Signs Period Temp Pulse Resp BP Sys/Tomas Pulse Ox Last 24 Hr 98.0 F-98.9 F 52-60 16-18 122-150/49-68 100-100 Physical Exam: General: NAD Abd: Soft, non-tender, non-distended. Kwan catheter with dark red urine and small clots CBCD WBC 7.3 K/mm3 (4.0-10.0) 03/24/17 06:15 RBC 2.95 M/mm3 (4.00-5.60) L 03/24/17 06:15 Hgb 9.7 GM/dL (11.7-16.9) L 03/24/17 06:15 Hct 28.5 % (35.4-49) L 03/24/17 06:15 MCV 96.9 fl (80-96) H 03/24/17 06:15 MCHC 33.8 g/dl (32.0-35.9) 03/24/17 06:15 RDW 18.2 % (11.9-15.9) H 03/24/17 06:15 Plt Count 191 K/MM3 (134-434) 03/24/17 06:15 MPV 8.1 fl (7.5-11.1) 03/24/17 06:15 CMP Sodium 144 mmol/L (136-145) 03/24/17 06:15 Potassium 3.9 mmol/L (3.5-5.1) 03/24/17 06:15 Chloride 106 mmol/L (98-107) 03/24/17 06:15 Carbon Dioxide 31 mmol/L (21-32) 03/24/17 06:15 Anion Gap 7 (8-16) L 03/24/17 06:15 BUN 28 mg/dL (7-18) H D 03/24/17 06:15 Creatinine 7.6 mg/dL (0.7-1.3) H* 03/24/17 06:15 Creat Clearance w eGFR 5.89 (>60) 03/22/17 06:08 Random Glucose 86 mg/dL (74-106) D 03/24/17 06:15 Calcium 8.2 mg/dL (8.5-10.1) L 03/24/17 06:15 Total Bilirubin 0.7 mg/dL (0.2-1.0) D 03/22/17 06:08 AST 23 U/L (15-37) 03/22/17 06:08 ALT 18 U/L (12-78) 03/22/17 06:08 Alkaline Phosphatase 77 U/L (45-117) 03/22/17 06:08 Total Protein 5.3 g/dl (6.4-8.2) L 03/22/17 06:08 Albumin 2.8 g/dl (3.4-5.0) L 03/22/17 06:08 CARDIAC ENZYMES Creatine Kinase 165 IU/L (39-308) 03/19/17 13:45 Troponin I 0.11 ng/ml (0.00-0.05) H 03/19/17 21:40 Microbiology 03/19/17 10:33 Urine - Urine Kwan Urine Culture - Final NO GROWTH OBTAINED Assessment: This is an 81 year old male with PMHx of HTN, hyperlipidemia, ESRD on HD, CVA (2012), aortic valve replacement, a.fib on Coumadin, BPH s/p urolift procedure on 03/17/17 who presented to [facility] ED with hematuria with clots and severe blood loss anemia Plan: 1) Severe blood loss anemia in the setting of hematuria s/p urolift - S/p 4u PRBC on 03/20, 2u PRBC on 03/23 - Continue to monitor Hgb, transfuse if Hgb <8 - Appreciate hematology consult 2) Hematuria s/p urolift - 03/19 renal/bladder ultrasound: 11x8.1x10.1 cm large heterogeneous echogenic lesion in the urinary bladder, hematoma vs. 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 Bose. Awaiting call back from urology - F/u further recommendations from urology 3) A.fib s/p aortic valve replacement - Goal INR 3-3.5 - Continue heparin gtt for now - Can switch to Coumadin once cleared by urology 4) Pyuria - Urine culture with no growth, however will continue Ceftriaxone for now given recent instrumentation 5) ESRD on HD - Continue HD M,W,F 6) F/E/N: - Renal diet - Monitor electrolytes 7) Prophylaxis: - On Heparin gtt 8) Dispo: - Requires continued inpatient care CODE STATUS: FULL CODE Visit type - Emergency Visit Emergency Visit: Yes ED Registration Date: 03/20/17 Care time: The patient presented to the Emergency Department on the above date and was hospitalized for further evaluation of their emergent condition. - New Patient This patient is new to me today: Yes Date on this admission: 03/24/17 - Critical Care Critical Care patient: No
--- NOTE | 2017-03-24 15:00 | PN ---
Progress Note, Physician Chief Complaint: The patient seen in his room. Awake. Alert. Family visiting. The Abbott catheter draining bloody urine. History of Present Illness: 86 year old gentleman wit PMhx of ESRD on HD (MWF x 1.5 years), Hypertension, MVR on Coumadin recent urolift procedure who presented with clogged abbott catheter and hematuira. - Current Medication List Current Medications: Active Medications Acetaminophen (Tylenol -) 650 mg PO Q4H PRN PRN Reason: PAIN OR FEVER Last Admin: 03/24/17 10:28 Dose: 650 mg Amino Acids (Prosource No Carb Liquid Pkt) 30 ml PO DAILY [facility] Last Admin: 03/24/17 09:57 Dose: 30 ml Atorvastatin Calcium (Lipitor -) 20 mg PO HS [facility] Last Admin: 03/23/17 21:26 Dose: 20 mg Heparin Sodium (Porcine) (Heparin -) 1,000 unit IVPUSH PRN PRN PRN Reason: Heparin Heparin Sodium (Porcine) (Heparin -) 5,000 unit IVPUSH PRN PRN PRN Reason: Heparin CEFTRIAXONE 1 G/50 ML PREMIX (Ceftriaxone 1 Gm-D5w Bag) 50 mls @ 100 mls/hr IVPB DAILY [facility] Last Admin: 03/24/17 09:57 Dose: 100 mls/hr Heparin Sodium (Porcine) 25, (000 unit/ Sodium Chloride) 500 mls @ 27.2 mls/hr IV TITR [facility]; 1,360 UNIT/HR PRN Reason: Protocol Last Admin: 03/23/17 14:00 Dose: 1,360 unit/hr, 27.2 mls/hr Sevelamer Carbonate (Renvela -) 1,600 mg PO TIDCM [facility] Last Admin: 03/24/17 08:34 Dose: 1,600 mg Tamsulosin HCl (Flomax -) 0.4 mg PO DAILY@0830 [facility] Last Admin: 03/24/17 08:34 Dose: 0.4 mg - Objective Vital Signs: Vital Signs Temperature 98.2 F 03/24/17 08:30 Pulse Rate 58 L 03/24/17 08:30 Respiratory Rate 16 03/24/17 09:00 Blood Pressure 150/68 03/24/17 08:30 O2 Sat by Pulse Oximetry (%) 100 03/24/17 09:00 Constitutional: Yes: No Distress, Calm Eyes: Yes: Conjunctiva Clear HENT: Yes: Normocephalic Neck: Yes: Trachea Midline Cardiovascular: Yes: S1, S2 Respiratory: Yes: CTA Bilaterally Gastrointestinal: Yes: Soft Genitourinary: Yes: Abbott Present, Hematuria Labs: CBC, BMP 03/24/17 06:15 03/24/17 06:15 INR, PTT INR 1.16 (0.82-1.09) H 03/23/17 06:25 Problem List - Problems (1) End stage renal disease Code(s): N18.6 - END STAGE RENAL DISEASE (2) AV fistula Code(s): I77.0 - ARTERIOVENOUS FISTULA, ACQUIRED (3) Gross hematuria Code(s): R31.0 - GROSS HEMATURIA (4) Hematuria Code(s): R31.9 - HEMATURIA, UNSPECIFIED Assessment/Plan 86 year old gentleman wit PMhx of ESRD on HD (MWF x 1.5 years), Hypertension, MVR on Coumadin recent urolift procedure who presented with clogged abbott catheter and hematuria. The Had uneventful HD yesterday. Next HD tomorrow. Hemoglobin trending down. Will watch for need for transfusion. Thank you. Will follow with you. Maida Montoya MD
[2017-03-24] MEDS ORDERED: PT OWN MED DRAWER 7, Y5N ONE (17:19)
[2017-03-24 19:52] LABS: HEMOGLOBIN 9.3 GM/dL (11.7-16.9); MCH 32.6 pg (25.7-33.7); MCHC 33.1 g/dl (32.0-35.9); MEAN CELL VOLUME 98.4 fl (80-96); MEAN PLT VOLUME 8.8 fl (7.5-11.1); PLATELET COUNT 168 K/MM3 (134-434); RBC 2.84 M/mm3 (4.00-5.60); RDW 18.3 % (11.9-15.9); WHITE BLOOD COUNT 7.1 K/mm3 (4.0-10.0)
[2017-03-24] MEDS: ATORVASTATIN CA 20 MG TABLET (FP) PO SCH (21:18)
[2017-03-25] MEDS: HEPARIN - 25,000 UNIT in SODIUM CHLORIDE 495 ML IV SCH ×2 (04:58→17:14)
[2017-03-25 06:06] LABS: SERUM IRON SATURATION 20 % (15-55); TOTAL IRON BINDING CAPACITY 213 ug/dL (250-450); UIBC 171 ug/dL (111-343)
[2017-03-25 07:25] LABS: BASO % 0.4 % (0-2.0); EOS % 4.8 % (0-4.5); HEMATOCRIT 29.6 % (35.4-49); HEMOGLOBIN 9.7 GM/dL (11.7-16.9); LYMPH % 13.2 % (8-40); MCH 32.8 pg (25.7-33.7); MCHC 32.7 g/dl (32.0-35.9); MEAN CELL VOLUME 100.2 fl (80-96); MEAN PLT VOLUME 8.6 fl (7.5-11.1); MONO % 8.2 % (3.8-10.2); NEUT % 73.4 % (42.8-82.8); PLATELET COUNT 203 K/MM3 (134-434); RBC 2.95 M/mm3 (4.00-5.60); RDW 18.4 % (11.9-15.9); WHITE BLOOD COUNT 7.7 K/mm3 (4.0-10.0)
[2017-03-25 07:56] LABS: CHLORIDE 105 mmol/L (98-107); POTASSIUM 3.9 mmol/L (3.5-5.1); SODIUM 144 mmol/L (136-145)
[2017-03-25] MEDS: SEVELAMER CARBONATE 800 MG TAB (FP) PO SCH ×3 (08:04→17:19)
[2017-03-25] MEDS: TAMSULOSIN HCL 0.4 MG CAP.ER.24H (FP) PO SCH (08:04)
[2017-03-25 08:13] LABS: ALBUMIN 2.7 g/dl (3.4-5.0); ALK PHOS 83 U/L (45-117); ANION GAP 8 (8-16); BILIRUBIN,TOTAL 0.6 mg/dL (0.2-1.0); BLOOD UREA NITROGEN 39 mg/dL (7-18); CALCIUM 8.6 mg/dL (8.5-10.1); CO2 31 mmol/L (21-32); GLUCOSE,RANDOM 84 mg/dL (74-106); SGOT/AST 17 U/L (15-37); SGPT/ALT 18 U/L (12-78); TOT PROT 5.7 g/dl (6.4-8.2)
[2017-03-25 08:23] LABS: CREATININE 10.3 mg/dL (0.7-1.3)
[2017-03-25] MEDS ORDERED: EPOETIN ALFA 10,000 UNIT/1 ML VIAL IVPUSH ONE (09:00)
--- NOTE | 2017-03-25 10:32 | PN ---
Progress Note, Physician Chief Complaint: The patient seen in his room. Awake. Alert. Dialysis in progress. Will switch to 3 K bath. Pre K only 3.9 The Abbott catheter draining bloody urine. History of Present Illness: 86 year old gentleman wit PMhx of ESRD on HD (MWF x 1.5 years), Hypertension, MVR on Coumadin recent urolift procedure who presented with clogged abbott catheter and hematuira. following - Current Medication List Current Medications: Active Medications Acetaminophen (Tylenol -) 650 mg PO Q4H PRN PRN Reason: PAIN OR FEVER Last Admin: 03/24/17 10:28 Dose: 650 mg Amino Acids (Prosource No Carb Liquid Pkt) 30 ml PO DAILY [facility] Last Admin: 03/24/17 09:57 Dose: 30 ml Atorvastatin Calcium (Lipitor -) 20 mg PO HS [facility] Last Admin: 03/24/17 21:18 Dose: 20 mg Heparin Sodium (Porcine) (Heparin -) 1,000 unit IVPUSH PRN PRN PRN Reason: Heparin Heparin Sodium (Porcine) (Heparin -) 5,000 unit IVPUSH PRN PRN PRN Reason: Heparin CEFTRIAXONE 1 G/50 ML PREMIX (Ceftriaxone 1 Gm-D5w Bag) 50 mls @ 100 mls/hr IVPB DAILY [facility] Last Admin: 03/24/17 09:57 Dose: 100 mls/hr Heparin Sodium (Porcine) 25, (000 unit/ Sodium Chloride) 500 mls @ 27.2 mls/hr IV TITR [facility]; 1,360 UNIT/HR PRN Reason: Protocol Last Admin: 03/25/17 04:58 Dose: 1,360 unit/hr, 27.2 mls/hr Sevelamer Carbonate (Renvela -) 1,600 mg PO TIDCM [facility] Last Admin: 03/25/17 08:04 Dose: 1,600 mg Tamsulosin HCl (Flomax -) 0.4 mg PO DAILY@0830 [facility] Last Admin: 03/25/17 08:04 Dose: 0.4 mg - Objective Vital Signs: Vital Signs Temperature 98 F 03/25/17 09:00 Pulse Rate 70 03/25/17 09:35 Respiratory Rate 18 03/25/17 09:35 Blood Pressure 127/67 03/25/17 09:35 O2 Sat by Pulse Oximetry (%) 100 03/24/17 19:30 Constitutional: Yes: Calm, Mild Distress HENT: Yes: Normocephalic Neck: Yes: Trachea Midline Cardiovascular: Yes: S1, S2 Respiratory: Yes: Regular, Diminished Gastrointestinal: Yes: Normal Bowel Sounds Genitourinary: Yes: Abbott Present, Hematuria Labs: CBC, BMP 03/25/17 06:10 03/25/17 06:10 INR, PTT INR 1.16 (0.82-1.09) H 03/23/17 06:25 Problem List - Problems (1) End stage renal disease Code(s): N18.6 - END STAGE RENAL DISEASE (2) AV fistula Code(s): I77.0 - ARTERIOVENOUS FISTULA, ACQUIRED (3) Gross hematuria Code(s): R31.0 - GROSS HEMATURIA (4) Hematuria Code(s): R31.9 - HEMATURIA, UNSPECIFIED Assessment/Plan 86 year old gentleman wit PMhx of ESRD on HD (MWF x 1.5 years), Hypertension, MVR on Coumadin recent urolift procedure who presented with clogged abbott catheter and hematuria. HD in progress Stable. Hemoglobin stable. Thank you. Will follow with you. Maida Montoya MD
[2017-03-25] MEDS: AMINO ACIDS/PROTEIN HYDROLYS 30 ML LIQUID.PKT PO SCH (11:47)
[2017-03-25] MEDS: CEFTRIAXONE 1 G/50 ML PREMIX 50 ML IVPB SCH (11:47)
--- NOTE | 2017-03-25 13:12 | PN ---
Progress Note (short form) - Note Progress Note: seen and examined CBC reviewed Kwan UOP noted Constitutional: Yes: No Distress, Calm Eyes: Yes: Conjunctiva Clear HENT: Yes: Atraumatic, Normocephalic Neck: Yes: Supple, Trachea Midline Cardiovascular: Yes: Regular Rate and Rhythm Respiratory: Yes: Regular, CTA Bilaterally Gastrointestinal: Yes: Normal Bowel Sounds, Soft Extremities: Yes: WNL Edema: No Neurological: Yes: Alert, Oriented Psychiatric: Yes: Alert Temp Pulse Resp BP Pulse Ox 98 F 64 18 141/65 100 03/25/17 09:00 03/25/17 11:42 03/25/17 11:42 03/25/17 11:42 03/24/17 19:30 Current Medications Generic Name Dose Route Start Last Admin Trade Name Freq PRN Reason Stop Dose Admin Acetaminophen 650 mg 03/19/17 18:50 03/24/17 10:28 Tylenol - PO 650 mg Q4H PRN Administration PAIN OR FEVER Amino Acids 30 ml 03/20/17 10:00 03/25/17 11:47 Prosource No Carb Liquid Pkt PO 30 ml DAILY [facility] Administration Atorvastatin Calcium 20 mg 03/19/17 22:00 03/24/17 21:18 Lipitor - PO 20 mg HS [facility] Administration Heparin Sodium (Porcine) 1,000 unit 03/22/17 16:36 Heparin - IVPUSH PRN PRN Heparin Heparin Sodium (Porcine) 5,000 unit 03/22/17 16:36 Heparin - IVPUSH PRN PRN Heparin CEFTRIAXONE 1 G/50 ML PREMIX 50 mls @ 100 mls/hr 03/20/17 10:00 03/25/17 11: 47 Ceftriaxone 1 Gm-D5w Bag IVPB 100 mls/hr DAILY [facility] Administration Heparin Sodium (Porcine) 25, 500 mls @ 27.2 mls/hr 03/22/17 16:45 03/25/17 04 :58 000 unit/ Sodium Chloride IV 1,360 unit/hr TITR [facility] 27.2 mls/hr Protocol Administration 1,360 UNIT/HR Sevelamer Carbonate 1,600 mg 03/20/17 08:00 03/25/17 12:03 Renvela - PO 1,600 mg TIDCM [facility] Administration Tamsulosin HCl 0.4 mg 03/20/17 08:30 03/25/17 08:04 Flomax - PO 0.4 mg DAILY@0830 [facility] Administration CBC, BMP 03/25/17 06:10 03/25/17 06:10 Anemia In the setting of bleeding ( hematuria ) ( also has ESRD and other co-morbids) Fibronolytic agents do come with Adverse events especially in cardio-renal pts, seems like the bleeding is better, if bleeding not controlled at all, then might need to consider to start low dose amicar 1000mg tid PO EPO per renal protocol screening anemia w/u consistent with ACD/ACI. hematuria: f/u ESRD: s/p HD today. h/o CVA MVR: On IV heparin cardiology consult noted.
--- NOTE | 2017-03-25 14:41 | PN ---
Progress Note (short form) - Note Progress Note: Subjective: The patient was seen and examined at the bedside, he has no complaints at this time Current Medications Generic Name Dose Route Start Last Admin Trade Name Estrellita PRN Reason Stop Dose Admin Acetaminophen 650 mg 03/19/17 18:50 03/24/17 10:28 Tylenol - PO 650 mg Q4H PRN Administration PAIN OR FEVER Amino Acids 30 ml 03/20/17 10:00 03/25/17 11:47 Prosource No Carb Liquid Pkt PO 30 ml DAILY [facility] Administration Atorvastatin Calcium 20 mg 03/19/17 22:00 03/24/17 21:18 Lipitor - PO 20 mg HS [facility] Administration Heparin Sodium (Porcine) 1,000 unit 03/22/17 16:36 Heparin - IVPUSH PRN PRN Heparin Heparin Sodium (Porcine) 5,000 unit 03/22/17 16:36 Heparin - IVPUSH PRN PRN Heparin CEFTRIAXONE 1 G/50 ML PREMIX 50 mls @ 100 mls/hr 03/20/17 10:00 03/25/17 11: 47 Ceftriaxone 1 Gm-D5w Bag IVPB 100 mls/hr DAILY [facility] Administration Heparin Sodium (Porcine) 25, 500 mls @ 27.2 mls/hr 03/22/17 16:45 03/25/17 04 :58 000 unit/ Sodium Chloride IV 1,360 unit/hr TITR [facility] 27.2 mls/hr Protocol Administration 1,360 UNIT/HR Sevelamer Carbonate 1,600 mg 03/20/17 08:00 03/25/17 12:03 Renvela - PO 1,600 mg TIDCM [facility] Administration Tamsulosin HCl 0.4 mg 03/20/17 08:30 03/25/17 08:04 Flomax - PO 0.4 mg DAILY@0830 [facility] Administration Objective: Vital Signs Period Temp Pulse Resp BP Sys/Tomas Pulse Ox Last 24 Hr 98 F-99.1 F 48-70 18-20 115-151/58-78 100 Physical Exam: General: NAD Abd: Soft, non-tender, non-distended. Kwan catheter with dark red urine and small clots CBCD WBC 7.7 K/mm3 (4.0-10.0) 03/25/17 06:10 RBC 2.95 M/mm3 (4.00-5.60) L 03/25/17 06:10 Hgb 9.7 GM/dL (11.7-16.9) L 03/25/17 06:10 Hct 29.6 % (35.4-49) L 03/25/17 06:10 MCV 100.2 fl (80-96) H 03/25/17 06:10 MCHC 32.7 g/dl (32.0-35.9) 03/25/17 06:10 RDW 18.4 % (11.9-15.9) H 03/25/17 06:10 Plt Count 203 K/MM3 (134-434) D 03/25/17 06:10 MPV 8.6 fl (7.5-11.1) 03/25/17 06:10 CMP Sodium 144 mmol/L (136-145) 03/25/17 06:10 Potassium 3.9 mmol/L (3.5-5.1) 03/25/17 06:10 Chloride 105 mmol/L (98-107) 03/25/17 06:10 Carbon Dioxide 31 mmol/L (21-32) 03/25/17 06:10 Anion Gap 8 (8-16) 03/25/17 06:10 BUN 39 mg/dL (7-18) H D 03/25/17 06:10 Creatinine 10.3 mg/dL (0.7-1.3) H* D 03/25/17 06:10 Creat Clearance w eGFR 4.85 (>60) 03/25/17 06:10 Random Glucose 84 mg/dL (74-106) 03/25/17 06:10 Calcium 8.6 mg/dL (8.5-10.1) 03/25/17 06:10 Total Bilirubin 0.6 mg/dL (0.2-1.0) 03/25/17 06:10 AST 17 U/L (15-37) D 03/25/17 06:10 ALT 18 U/L (12-78) 03/25/17 06:10 Alkaline Phosphatase 83 U/L (45-117) 03/25/17 06:10 Total Protein 5.7 g/dl (6.4-8.2) L 03/25/17 06:10 Albumin 2.7 g/dl (3.4-5.0) L 03/25/17 06:10 CARDIAC ENZYMES Creatine Kinase 165 IU/L (39-308) 03/19/17 13:45 Troponin I 0.11 ng/ml (0.00-0.05) H 03/19/17 21:40 Microbiology 03/19/17 10:33 Urine - Urine Kwan Urine Culture - Final NO GROWTH OBTAINED Assessment: This is an 81 year old male with PMHx of HTN, hyperlipidemia, ESRD on HD, CVA (2012), aortic valve replacement, a.fib on Coumadin, BPH s/p urolift procedure on 03/17/17 who presented [facility] ED with hematuria with clots and severe blood loss anemia Plan: 1) Severe blood loss anemia in the setting of hematuria s/p urolift - S/p 4u PRBC on 03/20, 2u PRBC on 03/23 - Continue to monitor Hgb, stable at this time, transfuse if Hgb <8 - Appreciate hematology consult 2) Hematuria s/p urolift - 03/19 renal/bladder ultrasound: 11x8.1x10.1 cm large heterogeneous echogenic lesion in the urinary bladder, hematoma vs. neoplasm - Per previous CLINICAL MASSAGE THERAPIST documentation, no further surgical intervention at this time per discussion with Dr. Bose. Awaiting call back from urology - F/u further recommendations from urology 3) A.fib s/p aortic valve replacement - Goal INR 3-3.5 once coumadin restarted - Continue heparin gtt for now - Can bridge to Coumadin once cleared by urology 4) Pyuria - Urine culture with no growth, however will continue Ceftriaxone for now given recent instrumentation 5) ESRD on HD - Continue HD M,W,F 6) F/E/N: - Renal diet - Monitor electrolytes 7) Prophylaxis: - On Heparin gtt 8) Dispo: - Requires continued inpatient care CODE STATUS: FULL CODE Visit type - Emergency Visit Emergency Visit: Yes ED Registration Date: 03/20/17 Care time: The patient presented to the Emergency Department on the above date and was hospitalized for further evaluation of their emergent condition. - New Patient This patient is new to me today: No - Critical Care Critical Care patient: No
--- NOTE | 2017-03-25 14:47 | PN ---
Progress Note, Physician Chief Complaint: No complaints Afib on tele VR high 40s-60s with no significant pauses History of Present Illness: 81 year old male with a pmhx of ESRD on HD, CVA, afib on coumadin, reports history of mechanical AVR and mitral valve repair at [facility] in 2000, and bph s/p recent prostate procedure and presenting to ER with bladder pressure and bleeding from penis. Reports was on Abx as well as coumadin being bridged with injections. No chest pain, sob, or palpitations. No pnd, orthopnea, or edema. No syncope or near syncope. - Current Medication List Current Medications: Active Medications Acetaminophen (Tylenol -) 650 mg PO Q4H PRN PRN Reason: PAIN OR FEVER Last Admin: 03/24/17 10:28 Dose: 650 mg Amino Acids (Prosource No Carb Liquid Pkt) 30 ml PO DAILY [facility] Last Admin: 03/25/17 11:47 Dose: 30 ml Atorvastatin Calcium (Lipitor -) 20 mg PO HS [facility] Last Admin: 03/24/17 21:18 Dose: 20 mg Heparin Sodium (Porcine) (Heparin -) 1,000 unit IVPUSH PRN PRN PRN Reason: Heparin Heparin Sodium (Porcine) (Heparin -) 5,000 unit IVPUSH PRN PRN PRN Reason: Heparin CEFTRIAXONE 1 G/50 ML PREMIX (Ceftriaxone 1 Gm-D5w Bag) 50 mls @ 100 mls/hr IVPB DAILY [facility] Last Admin: 03/25/17 11:47 Dose: 100 mls/hr Heparin Sodium (Porcine) 25, (000 unit/ Sodium Chloride) 500 mls @ 27.2 mls/hr IV TITR [facility]; 1,360 UNIT/HR PRN Reason: Protocol Last Admin: 03/25/17 04:58 Dose: 1,360 unit/hr, 27.2 mls/hr Sevelamer Carbonate (Renvela -) 1,600 mg PO TIDCM [facility] Last Admin: 03/25/17 12:03 Dose: 1,600 mg Tamsulosin HCl (Flomax -) 0.4 mg PO DAILY@0830 [facility] Last Admin: 03/25/17 08:04 Dose: 0.4 mg - Objective Vital Signs: Vital Signs Temperature 98 F 03/25/17 09:00 Pulse Rate 64 03/25/17 11:42 Respiratory Rate 18 03/25/17 11:42 Blood Pressure 141/65 03/25/17 11:42 O2 Sat by Pulse Oximetry (%) 100 03/24/17 19:30 Constitutional: Yes: No Distress Cardiovascular: Yes: Bradycardia, Pulse Irregular, S1, S2, Other (click in upper sternal border) Respiratory: Yes: CTA Bilaterally Gastrointestinal: Yes: Soft Edema: No Labs: CBC, BMP 03/25/17 06:10 03/25/17 06:10 INR, PTT INR 1.16 (0.82-1.09) H 03/23/17 06:25 Assessment/Plan 81 year old male with a pmhx of ESRD on HD, CVA, afib on coumadin, reports history of mechanical AVR and mitral valve repair at [facility] in 2000, and bph s/p recent prostate procedure and presenting to ER with bladder pressure and bleeding from penis. Reports was on Abx as well as coumadin being bridged with injections. No chest pain, sob, or palpitations. No pnd, orthopnea, or edema. No syncope or near syncope. 1) Afib with history of valve replacement -Afib on tele with HR 50s-60s with no significant pauses. No av chip blocking agents -Reports that he has a mechanical aortic valve and h/o mitral repair. 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 Currently on heparin drip. Would restart coumadin when possible as per surgical/urology team Please call back if needed. Will sign off.
[2017-03-25] MEDS: ACETAMINOPHEN 325 MG TABLET (FP) PO PRN (22:41)
[2017-03-25] MEDS: ATORVASTATIN CA 20 MG TABLET (FP) PO SCH (22:41)
[2017-03-26 07:15] LABS: HEMATOCRIT 27.5 % (35.4-49); HEMOGLOBIN 9.1 GM/dL (11.7-16.9); MCHC 33.2 g/dl (32.0-35.9); MEAN CELL VOLUME 99.2 fl (80-96); PLATELET COUNT 200 K/MM3 (134-434); RBC 2.77 M/mm3 (4.00-5.60); RDW 17.9 % (11.9-15.9); WHITE BLOOD COUNT 6.3 K/mm3 (4.0-10.0)
[2017-03-26 07:46] LABS: ALBUMIN 2.6 g/dl (3.4-5.0); ANION GAP 8 (8-16); BLOOD UREA NITROGEN 25 mg/dL (7-18); CALCIUM 8.6 mg/dL (8.5-10.1); CHLORIDE 102 mmol/L (98-107); CO2 32 mmol/L (21-32); GLUCOSE,RANDOM 82 mg/dL (74-106); POTASSIUM 3.8 mmol/L (3.5-5.1); SGOT/AST 13 U/L (15-37); SGPT/ALT 15 U/L (12-78); SODIUM 142 mmol/L (136-145)
[2017-03-26 08:03] LABS: ALK PHOS 82 U/L (45-117); BILIRUBIN,TOTAL 0.4 mg/dL (0.2-1.0); TOT PROT 5.5 g/dl (6.4-8.2)
[2017-03-26] MEDS: SEVELAMER CARBONATE 800 MG TAB (FP) PO SCH ×3 (08:25→18:00)
[2017-03-26] MEDS: TAMSULOSIN HCL 0.4 MG CAP.ER.24H (FP) PO SCH (08:25)
[2017-03-26] MEDS: HEPARIN - 25,000 UNIT in SODIUM CHLORIDE 495 ML IV SCH ×2 (09:00→18:38)
[2017-03-26] MEDS: CEFTRIAXONE 1 G/50 ML PREMIX 50 ML IVPB SCH (09:34)
[2017-03-26] MEDS: AMINO ACIDS/PROTEIN HYDROLYS 30 ML LIQUID.PKT PO SCH (09:34)
[2017-03-26 09:51] LABS: CREATININE 7.6 mg/dL (0.7-1.3)
--- NOTE | 2017-03-26 10:10 | PN ---
Progress Note (short form) - Note Progress Note: urine dark but irrigates to clear easily HCT stable cont manual irrigation Q4hr may restart Coumadin tomorrow if urine clear Problem List - Problems (1) Gross hematuria Code(s): R31.0 - GROSS HEMATURIA
--- NOTE | 2017-03-26 14:29 | PN ---
Progress Note (short form) - Note Progress Note: Subjective: The patient was seen and examined at the bedside, he has no complaints at this time Current Medications Generic Name Dose Route Start Last Admin Trade Name Estrellita PRN Reason Stop Dose Admin Acetaminophen 650 mg 03/19/17 18:50 03/25/17 22:41 Tylenol - PO 650 mg Q4H PRN Administration PAIN OR FEVER Amino Acids 30 ml 03/20/17 10:00 03/26/17 09:34 Prosource No Carb Liquid Pkt PO 30 ml DAILY [facility] Administration Atorvastatin Calcium 20 mg 03/19/17 22:00 03/25/17 22:41 Lipitor - PO 20 mg HS [facility] Administration Heparin Sodium (Porcine) 1,000 unit 03/22/17 16:36 Heparin - IVPUSH PRN PRN Heparin Heparin Sodium (Porcine) 5,000 unit 03/22/17 16:36 Heparin - IVPUSH PRN PRN Heparin CEFTRIAXONE 1 G/50 ML PREMIX 50 mls @ 100 mls/hr 03/20/17 10:00 03/26/17 09: 34 Ceftriaxone 1 Gm-D5w Bag IVPB 100 mls/hr DAILY [facility] Administration Heparin Sodium (Porcine) 25, 500 mls @ 27.2 mls/hr 03/22/17 16:45 03/26/17 09 :00 000 unit/ Sodium Chloride IV 1,460 unit/hr TITR [facility] 29.2 mls/hr Protocol Administration 1,360 UNIT/HR Sevelamer Carbonate 1,600 mg 03/20/17 08:00 03/26/17 12:48 Renvela - PO 1,600 mg TIDCM [facility] Administration Tamsulosin HCl 0.4 mg 03/20/17 08:30 03/26/17 08:25 Flomax - PO 0.4 mg DAILY@0830 [facility] Administration Objective: Vital Signs Period Temp Pulse Resp BP Sys/Tomas Pulse Ox Last 24 Hr 97.7 F-99 F 46-59 18-22 119-151/49-67 99 Physical Exam: General: NAD Abd: Soft, non-tender, non-distended. Kwan catheter with dark red urine and small clots CBCD WBC 6.3 K/mm3 (4.0-10.0) 03/26/17 06:15 RBC 2.77 M/mm3 (4.00-5.60) L 03/26/17 06:15 Hgb 9.1 GM/dL (11.7-16.9) L 03/26/17 06:15 Hct 27.5 % (35.4-49) L 03/26/17 06:15 MCV 99.2 fl (80-96) H 03/26/17 06:15 MCHC 33.2 g/dl (32.0-35.9) 03/26/17 06:15 RDW 17.9 % (11.9-15.9) H 03/26/17 06:15 Plt Count 200 K/MM3 (134-434) 03/26/17 06:15 MPV 8.0 fl (7.5-11.1) 03/26/17 06:15 CMP Sodium 142 mmol/L (136-145) 03/26/17 06:15 Potassium 3.8 mmol/L (3.5-5.1) 03/26/17 06:15 Chloride 102 mmol/L (98-107) 03/26/17 06:15 Carbon Dioxide 32 mmol/L (21-32) 03/26/17 06:15 Anion Gap 8 (8-16) 03/26/17 06:15 BUN 25 mg/dL (7-18) H D 03/26/17 06:15 Creatinine 7.6 mg/dL (0.7-1.3) H* D 03/26/17 06:15 Creat Clearance w eGFR 6.89 (>60) 03/26/17 06:15 Random Glucose 82 mg/dL (74-106) 03/26/17 06:15 Calcium 8.6 mg/dL (8.5-10.1) 03/26/17 06:15 Total Bilirubin 0.4 mg/dL (0.2-1.0) D 03/26/17 06:15 AST 13 U/L (15-37) L D 03/26/17 06:15 ALT 15 U/L (12-78) 03/26/17 06:15 Alkaline Phosphatase 82 U/L (45-117) 03/26/17 06:15 Total Protein 5.5 g/dl (6.4-8.2) L 03/26/17 06:15 Albumin 2.6 g/dl (3.4-5.0) L 03/26/17 06:15 CARDIAC ENZYMES Creatine Kinase 165 IU/L (39-308) 03/19/17 13:45 Troponin I 0.11 ng/ml (0.00-0.05) H 03/19/17 21:40 Microbiology 03/19/17 10:33 Urine - Urine Kwan Urine Culture - Final NO GROWTH OBTAINED Assessment: This is an 81 year old male with PMHx of HTN, hyperlipidemia, ESRD on HD, CVA (2012), aortic valve replacement, a.fib on Coumadin, BPH s/p urolift procedure on 03/17/17 who presented to [facility] ED with hematuria with clots and severe blood loss anemia Plan: 1) Severe blood loss anemia in the setting of hematuria s/p urolift - S/p 4u PRBC on 03/20, 2u PRBC on 03/23 - Continue to monitor Hgb, stable at this time, transfuse if Hgb <8 - Can restart Coumadin once urine is clear - Appreciate hematology consult 2) Hematuria s/p urolift - 03/19 renal/bladder ultrasound: 11x8.1x10.1 cm large heterogeneous echogenic lesion in the urinary bladder, hematoma vs. neoplasm - Per previous JEWELRY ESTIMATOR documentation, no further surgical intervention at this time per discussion with Dr. Bose. Awaiting call back from urology - Appreciate further recommendations from urology 3) A.fib s/p aortic valve replacement - Goal INR 3-3.5 once coumadin restarted - Continue heparin gtt for now - Can bridge to Coumadin once cleared by urology 4) Pyuria - Urine culture with no growth, however will continue Ceftriaxone for now given recent instrumentation 5) ESRD on HD - Continue HD M,W,F 6) F/E/N: - Renal diet - Monitor electrolytes 7) Prophylaxis: - On Heparin gtt 8) Dispo: - Requires continued inpatient care CODE STATUS: FULL CODE Visit type - Emergency Visit Emergency Visit: Yes ED Registration Date: 03/20/17 Care time: The patient presented to the Emergency Department on the above date and was hospitalized for further evaluation of their emergent condition. - New Patient This patient is new to me today: No - Critical Care Critical Care patient: No
[2017-03-26] MEDS: ATORVASTATIN CA 20 MG TABLET (FP) PO SCH (21:18)
--- NOTE | 2017-03-26 22:49 | PN ---
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 Current Medications Acetaminophen (Tylenol -) 650 mg PO Q4H PRN PRN Reason: PAIN OR FEVER Last Admin: 03/25/17 22:41 Dose: 650 mg Amino Acids (Prosource No Carb Liquid Pkt) 30 ml PO DAILY [facility] Last Admin: 03/26/17 09:34 Dose: 30 ml Atorvastatin Calcium (Lipitor -) 20 mg PO HS [facility] Last Admin: 03/26/17 21:18 Dose: 20 mg Heparin Sodium (Porcine) (Heparin -) 1,000 unit IVPUSH PRN PRN PRN Reason: Heparin Heparin Sodium (Porcine) (Heparin -) 5,000 unit IVPUSH PRN PRN PRN Reason: Heparin CEFTRIAXONE 1 G/50 ML PREMIX (Ceftriaxone 1 Gm-D5w Bag) 50 mls @ 100 mls/hr IVPB DAILY [facility] Last Admin: 03/26/17 09:34 Dose: 100 mls/hr Heparin Sodium (Porcine) 25, (000 unit/ Sodium Chloride) 500 mls @ 27.2 mls/hr IV TITR [facility]; 1,360 UNIT/HR PRN Reason: Protocol Last Admin: 03/26/17 18:38 Dose: 1,460 unit/hr, 29.2 mls/hr Sevelamer Carbonate (Renvela -) 1,600 mg PO TIDCM [facility] Last Admin: 03/26/17 18:00 Dose: 1,600 mg Tamsulosin HCl (Flomax -) 0.4 mg PO DAILY@0830 [facility] Last Admin: 03/26/17 08:25 Dose: 0.4 mg Last Vital Signs Temp Pulse Resp BP Pulse Ox 98.8 F 48 L 18 148/65 99 03/26/17 19:58 03/26/17 19:58 03/26/17 19:58 03/26/17 19:58 03/26/17 19:10 lungs clear heart reg abd soft nontender ext no edema CBC, BMP 03/26/17 06:15 03/26/17 06:15 IMP- esrd gross hematuria on warfarin hemodynamically stable Plan- HD on Mon
[2017-03-27 07:25] LABS: BASO % 0.6 % (0-2.0); EOS % 4.9 % (0-4.5); HEMATOCRIT 27.4 % (35.4-49); LYMPH % 16.4 % (8-40); MCH 32.8 pg (25.7-33.7); MCHC 32.8 g/dl (32.0-35.9); MEAN CELL VOLUME 99.9 fl (80-96); MEAN PLT VOLUME 8.3 fl (7.5-11.1); MONO % 9.2 % (3.8-10.2); NEUT % 68.9 % (42.8-82.8); PLATELET COUNT 213 K/MM3 (134-434); RBC 2.74 M/mm3 (4.00-5.60); WHITE BLOOD COUNT 6.5 K/mm3 (4.0-10.0)
[2017-03-27] MEDS: TAMSULOSIN HCL 0.4 MG CAP.ER.24H (FP) PO SCH (08:14)
[2017-03-27] MEDS: SEVELAMER CARBONATE 800 MG TAB (FP) PO SCH ×3 (08:14→17:33)
[2017-03-27] MEDS: AMINO ACIDS/PROTEIN HYDROLYS 30 ML LIQUID.PKT PO SCH (09:36)
--- NOTE | 2017-03-27 11:04 | PN ---
Progress Note (short form) - Note Progress Note: Subjective: The patient was seen and examined at the bedside, he has no complaints at this time Current Medications Generic Name Dose Route Start Last Admin Trade Name Estrellita PRN Reason Stop Dose Admin Acetaminophen 650 mg 03/19/17 18:50 03/25/17 22:41 Tylenol - PO 650 mg Q4H PRN Administration PAIN OR FEVER Amino Acids 30 ml 03/20/17 10:00 03/26/17 09:34 Prosource No Carb Liquid Pkt PO 30 ml DAILY [facility] Administration Atorvastatin Calcium 20 mg 03/19/17 22:00 03/25/17 22:41 Lipitor - PO 20 mg HS [facility] Administration Heparin Sodium (Porcine) 1,000 unit 03/22/17 16:36 Heparin - IVPUSH PRN PRN Heparin Heparin Sodium (Porcine) 5,000 unit 03/22/17 16:36 Heparin - IVPUSH PRN PRN Heparin CEFTRIAXONE 1 G/50 ML PREMIX 50 mls @ 100 mls/hr 03/20/17 10:00 03/26/17 09: 34 Ceftriaxone 1 Gm-D5w Bag IVPB 100 mls/hr DAILY [facility] Administration Heparin Sodium (Porcine) 25, 500 mls @ 27.2 mls/hr 03/22/17 16:45 03/26/17 09 :00 000 unit/ Sodium Chloride IV 1,460 unit/hr TITR [facility] 29.2 mls/hr Protocol Administration 1,360 UNIT/HR Sevelamer Carbonate 1,600 mg 03/20/17 08:00 03/26/17 12:48 Renvela - PO 1,600 mg TIDCM [facility] Administration Tamsulosin HCl 0.4 mg 03/20/17 08:30 03/26/17 08:25 Flomax - PO 0.4 mg DAILY@0830 [facility] Administration Objective: Vital Signs Period Temp Pulse Resp BP Sys/Tomas Pulse Ox Last 24 Hr 97.7 F-99 F 46-59 18-22 119-151/49-67 99 Physical Exam: General: NAD Lungs: CTA bilaterally Heart: Irregular, S1S2 Abd: Soft, non-tender, non-distended. Kwan catheter with dark red urine and small clots CBCD WBC 6.5 K/mm3 (4.0-10.0) 03/27/17 06:37 RBC 2.74 M/mm3 (4.00-5.60) L 03/27/17 06:37 Hgb 9.0 GM/dL (11.7-16.9) L 03/27/17 06:37 Hct 27.4 % (35.4-49) L 03/27/17 06:37 MCV 99.9 fl (80-96) H 03/27/17 06:37 MCHC 32.8 g/dl (32.0-35.9) 03/27/17 06:37 RDW 18.0 % (11.9-15.9) H 03/27/17 06:37 Plt Count 213 K/MM3 (134-434) 03/27/17 06:37 MPV 8.3 fl (7.5-11.1) 03/27/17 06:37 CMP Sodium 142 mmol/L (136-145) 03/26/17 06:15 Potassium 3.8 mmol/L (3.5-5.1) 03/26/17 06:15 Chloride 102 mmol/L (98-107) 03/26/17 06:15 Carbon Dioxide 32 mmol/L (21-32) 03/26/17 06:15 Anion Gap 8 (8-16) 03/26/17 06:15 BUN 25 mg/dL (7-18) H D 03/26/17 06:15 Creatinine 7.6 mg/dL (0.7-1.3) H* D 03/26/17 06:15 Creat Clearance w eGFR 6.89 (>60) 03/26/17 06:15 Random Glucose 82 mg/dL (74-106) 03/26/17 06:15 Calcium 8.6 mg/dL (8.5-10.1) 03/26/17 06:15 Total Bilirubin 0.4 mg/dL (0.2-1.0) D 03/26/17 06:15 AST 13 U/L (15-37) L D 03/26/17 06:15 ALT 15 U/L (12-78) 03/26/17 06:15 Alkaline Phosphatase 82 U/L (45-117) 03/26/17 06:15 Total Protein 5.5 g/dl (6.4-8.2) L 03/26/17 06:15 Albumin 2.6 g/dl (3.4-5.0) L 03/26/17 06:15 CARDIAC ENZYMES Creatine Kinase 165 IU/L (39-308) 03/19/17 13:45 Troponin I 0.11 ng/ml (0.00-0.05) H 03/19/17 21:40 Microbiology 03/19/17 10:33 Urine - Urine Kwan Urine Culture - Final NO GROWTH OBTAINED Assessment: This is an 81 year old male with PMHx of HTN, hyperlipidemia, ESRD on HD, CVA (2012), aortic valve replacement, a.fib on Coumadin, BPH s/p urolift procedure on 03/17/17 who presented to [facility] ED with hematuria with clots and severe blood loss anemia Plan: 1) Severe blood loss anemia in the setting of hematuria s/p urolift - S/p 4u PRBC on 03/20, 2u PRBC on 03/23 - Continue to monitor Hgb, stable at this time, transfuse if Hgb <8 - Can restart Coumadin once urine is clear, urine remains bloody with small clots today, will not restart Coumadin - Appreciate hematology consult 2) Hematuria s/p urolift - 03/19 renal/bladder ultrasound: 11x8.1x10.1 cm large heterogeneous echogenic lesion in the urinary bladder, hematoma vs. neoplasm - Per previous [employer] documentation, no further surgical intervention at this time per discussion with Dr. Bose - Appreciate further recommendations from urology 3) A.fib s/p aortic valve replacement - Goal INR 3-3.5 once coumadin restarted - Continue heparin gtt for now - Can bridge to Coumadin once cleared by urology 4) Pyuria - Urine culture with no growth, however will continue Ceftriaxone for now given recent instrumentation 5) ESRD on HD - Continue HD M,W,F 6) F/E/N: - Renal diet - Monitor electrolytes 7) Prophylaxis: - On Heparin gtt 8) Dispo: - Requires continued inpatient care CODE STATUS: FULL CODE Visit type - Emergency Visit Emergency Visit: Yes ED Registration Date: 03/20/17 Care time: The patient presented to the Emergency Department on the above date and was hospitalized for further evaluation of their emergent condition. - New Patient This patient is new to me today: No - Critical Care Critical Care patient: No
[2017-03-27] MEDS: HEPARIN - 25,000 UNIT in SODIUM CHLORIDE 495 ML IV SCH ×2 (12:14→17:44)
[2017-03-27] MEDS: DOCUSATE SODIUM 100 MG CAPSULE (FP) PO SCH ×2 (15:29→21:07)
[2017-03-27] MEDS: POLYETHYLENE GLYCOL 3350 119 GM BTL PO SCH (15:29)
--- NOTE | 2017-03-27 19:19 | PN ---
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 Current Medications Acetaminophen (Tylenol -) 650 mg PO Q4H PRN PRN Reason: PAIN OR FEVER Last Admin: 03/25/17 22:41 Dose: 650 mg Amino Acids (Prosource No Carb Liquid Pkt) 30 ml PO DAILY [facility] Last Admin: 03/27/17 09:36 Dose: 30 ml Atorvastatin Calcium (Lipitor -) 20 mg PO HS [facility] Last Admin: 03/26/17 21:18 Dose: 20 mg Docusate Sodium (Colace -) 100 mg PO TID [facility] Last Admin: 03/27/17 15:29 Dose: 100 mg Heparin Sodium (Porcine) (Heparin -) 1,000 unit IVPUSH PRN PRN PRN Reason: Heparin Heparin Sodium (Porcine) (Heparin -) 5,000 unit IVPUSH PRN PRN PRN Reason: Heparin Heparin Sodium (Porcine) 25, (000 unit/ Sodium Chloride) 500 mls @ 27.2 mls/hr IV TITR [facility]; 1,360 UNIT/HR PRN Reason: Protocol Last Admin: 03/27/17 17:44 Dose: Not Given Polyethylene Glycol (Miralax (For Daily Use) -) 17 gm PO DAILY [facility] Last Admin: 03/27/17 15:29 Dose: 17 gm Sevelamer Carbonate (Renvela -) 1,600 mg PO TIDCM [facility] Last Admin: 03/27/17 17:33 Dose: 1,600 mg Tamsulosin HCl (Flomax -) 0.4 mg PO DAILY@0830 [facility] Last Admin: 03/27/17 08:14 Dose: 0.4 mg Last Vital Signs Temp Pulse Resp BP Pulse Ox 97.9 F 46 L 20 133/64 98 03/27/17 13:48 03/27/17 13:48 03/27/17 13:48 03/27/17 13:48 03/27/17 09:00 lungs clear heart reg abd soft nontender ext no edema CBC, BMP 03/27/17 06:37 03/26/17 06:15 IMP- esrd gross hematuria on warfarin- held still with dark red urine in urine bag hemodynamically stable Plan- HD tomorrow
[2017-03-27] MEDS: ATORVASTATIN CA 20 MG TABLET (FP) PO SCH (21:07)
[2017-03-28] MEDS: DOCUSATE SODIUM 100 MG CAPSULE (FP) PO SCH ×3 (05:25→22:55)
[2017-03-28] MEDS: HEPARIN - 25,000 UNIT in SODIUM CHLORIDE 495 ML IV SCH ×2 (06:00→17:37)
[2017-03-28 07:17] LABS: BASO % 0.7 % (0-2.0); EOS % 4.3 % (0-4.5); HEMATOCRIT 27.5 % (35.4-49); HEMOGLOBIN 9.2 GM/dL (11.7-16.9); LYMPH % 16.9 % (8-40); MCH 33.6 pg (25.7-33.7); MCHC 33.3 g/dl (32.0-35.9); MEAN CELL VOLUME 100.7 fl (80-96); MEAN PLT VOLUME 8.1 fl (7.5-11.1); MONO % 8.4 % (3.8-10.2); NEUT % 69.7 % (42.8-82.8); PLATELET COUNT 239 K/MM3 (134-434); RBC 2.73 M/mm3 (4.00-5.60); WHITE BLOOD COUNT 6.9 K/mm3 (4.0-10.0)
[2017-03-28 07:32] LABS: CHLORIDE 103 mmol/L (98-107); POTASSIUM 4.3 mmol/L (3.5-5.1); SODIUM 143 mmol/L (136-145)
[2017-03-28 07:46] LABS: ALBUMIN 2.7 g/dl (3.4-5.0); ALK PHOS 90 U/L (45-117); ANION GAP 10 (8-16); BILIRUBIN,TOTAL 0.6 mg/dL (0.2-1.0); BLOOD UREA NITROGEN 46 mg/dL (7-18); CALCIUM 8.7 mg/dL (8.5-10.1); CO2 30 mmol/L (21-32); GLUCOSE,RANDOM 77 mg/dL (74-106); SGOT/AST 13 U/L (15-37); SGPT/ALT 18 U/L (12-78); TOT PROT 5.7 g/dl (6.4-8.2)
[2017-03-28] MEDS: SEVELAMER CARBONATE 800 MG TAB (FP) PO SCH ×3 (08:44→17:36)
[2017-03-28] MEDS: TAMSULOSIN HCL 0.4 MG CAP.ER.24H (FP) PO SCH (08:44)
[2017-03-28 09:04] LABS: CREATININE 11.9 mg/dL (0.7-1.3)
[2017-03-28] MEDS: POLYETHYLENE GLYCOL 3350 119 GM BTL PO SCH (09:30)
[2017-03-28] MEDS: AMINO ACIDS/PROTEIN HYDROLYS 30 ML LIQUID.PKT PO SCH (09:30)
--- NOTE | 2017-03-28 11:29 | PN ---
Progress Note (short form) - Note Progress Note: Renal follow up for ESRD on HD Pt seen and examined during dialysis BP 122/62, goal UF is 2L access with good flow pt without any acute complaints abbott in place with bloody urine Vital Signs Temperature 98.2 F 03/28/17 09:25 Pulse Rate 52 L 03/28/17 09:30 Respiratory Rate 18 03/28/17 09:30 Blood Pressure 123/65 03/28/17 09:30 O2 Sat by Pulse Oximetry (%) 96 03/27/17 19:38 Intake & Output 03/25/17 03/26/17 03/27/17 03/28/17 23:59 23:59 23:59 23:59 Intake Total 614.4 922.4 731.6 204.4 Output Total 300 500 200 350 Balance 314.4 422.4 531.6 -145.6 Weight 86.273 kg 87.997 kg 87.77 kg 89.584 kg NAD RRR, + systolic click CTA soft NT/ND No LE edema abbott in place with bloody urine CBC, BMP 03/28/17 06:35 03/28/17 06:35 Current Medications Acetaminophen (Tylenol -) 650 mg PO Q4H PRN PRN Reason: PAIN OR FEVER Last Admin: 03/25/17 22:41 Dose: 650 mg Amino Acids (Prosource No Carb Liquid Pkt) 30 ml PO DAILY [facility] Last Admin: 03/28/17 09:30 Dose: 30 ml Atorvastatin Calcium (Lipitor -) 20 mg PO HS [facility] Last Admin: 03/27/17 21:07 Dose: 20 mg Docusate Sodium (Colace -) 100 mg PO TID [facility] Last Admin: 03/28/17 05:25 Dose: 100 mg Epoetin Dominik (Procrit -) 10,000 unit IVPUSH ONCE ONE Stop: 03/28/17 12:01 Heparin Sodium (Porcine) (Heparin -) 1,000 unit IVPUSH PRN PRN PRN Reason: Heparin Heparin Sodium (Porcine) (Heparin -) 5,000 unit IVPUSH PRN PRN PRN Reason: Heparin Heparin Sodium (Porcine) 25, (000 unit/ Sodium Chloride) 500 mls @ 27.2 mls/hr IV TITR [facility]; 1,360 UNIT/HR PRN Reason: Protocol Last Admin: 03/28/17 06:00 Dose: 1,460 unit/hr, 29.2 mls/hr Polyethylene Glycol (Miralax (For Daily Use) -) 17 gm PO DAILY [facility] Last Admin: 03/28/17 09:30 Dose: 17 gm Sevelamer Carbonate (Renvela -) 1,600 mg PO TIDCM [facility] Last Admin: 03/28/17 08:44 Dose: 1,600 mg Tamsulosin HCl (Flomax -) 0.4 mg PO DAILY@0830 [facility] Last Admin: 03/28/17 08:44 Dose: 0.4 mg 86 year old gentleman wit PMhx of ESRD on HD (MWF x 1.5 years), Hypertension, MVR on Coumadin recent urolift procedure who presented with clogged abbott catheter and hematuira. #ESRD on HD pt tolerating dialysis well today goal UF 2L will maintain on 3x weekly HD as inpatient #Gross Hematuria abbott in place trend CBC on Heparin gtt off Warfarin will continue ABILIO with HD #MVR on Coumadin on Heparin gtt now off Warfarin Lamonte Kapadia DO
--- NOTE | 2017-03-28 11:48 | PN ---
Physical Exam: SUBJECTIVE: Patient seen and examined during dialysis OBJECTIVE: Continues to have gross hematuria on abbott catheter Repeat cmp after dialysis and tonight May need prbc transfusion Vital Signs Period Temp Pulse Resp BP Sys/Tomas Pulse Ox Last 24 Hr 97.9 F-98.7 F 44-65 18-20 122-150/60-79 96 GENERAL: The patient is awake, alert, and fully oriented, in no acute distress. HEAD: Normal with no signs of trauma. EYES: PERRL, extraocular movements intact, sclera anicteric, conjunctiva clear. No ptosis. ENT: Ears normal, nares patent, oropharynx clear without exudates, moist mucous membranes. NECK: Trachea midline, full range of motion, supple. LUNGS: Breath sounds equal, clear to auscultation bilaterally, no wheezes, no crackles, no accessory muscle use. HEART: irregular, mechanical aortic valve auscultated ABDOMEN: Soft, nontender, nondistended, normoactive bowel sounds, no guarding, no rebound, no hepatosplenomegaly, no masses. EXTREMITIES: 2+ pulses, warm, well-perfused, no edema. NEUROLOGICAL: Cranial nerves II through XII grossly intact. Normal speech, gait not observed. PSYCH: Normal mood, normal affect. SKIN: Warm, dry, normal turgor, no rashes or lesions noted Laboratory Results - last 24 hr 03/28/17 03/28/17 03/28/17 06:35 06:35 06:35 WBC 6.9 RBC 2.73 L Hgb 9.2 L Hct 27.5 L MCV 100.7 H MCH 33.6 MCHC 33.3 RDW 18.0 H Plt Count 239 MPV 8.1 Neutrophils % 69.7 Lymphocytes % 16.9 Monocytes % 8.4 Eosinophils % 4.3 Basophils % 0.7 PTT (Actin FS) 57.1 H Sodium 143 Potassium 4.3 Chloride 103 Carbon Dioxide 30 Anion Gap 10 BUN 46 H D Creatinine 11.9 H* D Creat Clearance w eGFR 4.11 Random Glucose 77 Calcium 8.7 Total Bilirubin 0.6 D AST 13 L ALT 18 Alkaline Phosphatase 90 Total Protein 5.7 L Albumin 2.7 L Active Medications Generic Name Dose Route Start Last Admin Trade Name Freq PRN Reason Stop Dose Admin Acetaminophen 650 mg 03/19/17 18:50 03/25/17 22:41 Tylenol - PO 650 mg Q4H PRN Administration PAIN OR FEVER Amino Acids 30 ml 03/20/17 10:00 03/28/17 09:30 Prosource No Carb Liquid Pkt PO 30 ml DAILY [facility] Administration Atorvastatin Calcium 20 mg 03/19/17 22:00 03/27/17 21:07 Lipitor - PO 20 mg HS [facility] Administration Docusate Sodium 100 mg 03/27/17 14:30 03/28/17 05:25 Colace - PO 100 mg TID [facility] Administration Epoetin Dominik 10,000 unit 03/28/17 12:00 Procrit - IVPUSH 03/28/17 12:01 ONCE ONE Heparin Sodium (Porcine) 1,000 unit 03/22/17 16:36 Heparin - IVPUSH PRN PRN Heparin Heparin Sodium (Porcine) 5,000 unit 03/22/17 16:36 Heparin - IVPUSH PRN PRN Heparin Heparin Sodium (Porcine) 25, 500 mls @ 27.2 mls/hr 03/22/17 16:45 03/28/17 06 :00 000 unit/ Sodium Chloride IV 1,460 unit/hr TITR GR[facility] 29.2 mls/hr Protocol Administration 1,360 UNIT/HR Polyethylene Glycol 17 gm 03/27/17 14:30 03/28/17 09:30 Miralax (For Daily Use) - PO 17 gm DAILY [facility] Administration Sevelamer Carbonate 1,600 mg 03/20/17 08:00 03/28/17 08:44 Renvela - PO 1,600 mg TIDCM [facility] Administration Tamsulosin HCl 0.4 mg 03/20/17 08:30 03/28/17 08:44 Flomax - PO 0.4 mg DAILY@0830 [facility] Administration ASSESSMENT/PLAN: Patient is an 81 year old male with a past medical history of hypertension, hyperlipidemia, end stage renal disease (on dialysis), CVA and an aortic valve replacement, a.fib on Coumadin, BPH s/p urolift procedure on 03/17/17 who presented to the ED with hematuria with clots and severe blood loss anemia. : Gross Hematuria s/p Urolift with severe blood loss anemia I would monitor his labs closely (CBC), as he continues to have gross hematuria Has received 4 units of prbc since admission Will transfuse if hmg 8 or less secondary to heart disease Will restart Coumadin when urine is not with ant blood Ceftriaxone prophylaxis for recent surgery Hematology following Urology following Cardiology Atrial fibrillation s/p aortic valve replacement Goal INR 3-3.5 once coumadin restarted Remains on heparin drip for aortic valve Renal: ESRD on HD Dialysis today F.E.N. Fluids: PO as tolerated Electrolyes: monitor Nutrition: regular diet Prophylaxis: On Heparin gtt Disposition: requires continued inpatient care
[2017-03-28] MEDS ORDERED: EPOETIN ALFA 10,000 UNIT/1 ML VIAL IVPUSH ONE (12:00)
[2017-03-28 16:07] LABS: HEMATOCRIT 26.9 % (35.4-49); HEMOGLOBIN 8.9 GM/dL (11.7-16.9); MCH 33.3 pg (25.7-33.7); MCHC 33.2 g/dl (32.0-35.9); MEAN CELL VOLUME 100.2 fl (80-96); MEAN PLT VOLUME 8.5 fl (7.5-11.1); PLATELET COUNT 220 K/MM3 (134-434); RBC 2.69 M/mm3 (4.00-5.60); RDW 18.3 % (11.9-15.9); WHITE BLOOD COUNT 6.8 K/mm3 (4.0-10.0)
[2017-03-28 20:43] LABS: BASO % 0.5 % (0-2.0); EOS % 3.9 % (0-4.5); HEMATOCRIT 26.6 % (35.4-49); HEMOGLOBIN 8.9 GM/dL (11.7-16.9); LYMPH % 11.3 % (8-40); MCH 33.3 pg (25.7-33.7); MCHC 33.3 g/dl (32.0-35.9); MEAN CELL VOLUME 100.2 fl (80-96); MEAN PLT VOLUME 8.1 fl (7.5-11.1); MONO % 10.7 % (3.8-10.2); NEUT % 73.6 % (42.8-82.8); PLATELET COUNT 216 K/MM3 (134-434); RBC 2.66 M/mm3 (4.00-5.60); RDW 18.6 % (11.9-15.9); WHITE BLOOD COUNT 6.3 K/mm3 (4.0-10.0)
[2017-03-28] MEDS: ATORVASTATIN CA 20 MG TABLET (FP) PO SCH (22:55)
[2017-03-29] MEDS: DOCUSATE SODIUM 100 MG CAPSULE (FP) PO SCH ×3 (06:05→21:18)
[2017-03-29 06:18] LABS: BASO % 0.6 % (0-2.0); EOS % 4.1 % (0-4.5); HEMATOCRIT 26.9 % (35.4-49); HEMOGLOBIN 8.8 GM/dL (11.7-16.9); LYMPH % 13.3 % (8-40); MCH 32.9 pg (25.7-33.7); MCHC 32.8 g/dl (32.0-35.9); MEAN CELL VOLUME 100.4 fl (80-96); MEAN PLT VOLUME 8.3 fl (7.5-11.1); MONO % 8.9 % (3.8-10.2); NEUT % 73.1 % (42.8-82.8); PLATELET COUNT 230 K/MM3 (134-434); RBC 2.68 M/mm3 (4.00-5.60); RDW 19.2 % (11.9-15.9); WHITE BLOOD COUNT 6.9 K/mm3 (4.0-10.0)
[2017-03-29] MEDS: TAMSULOSIN HCL 0.4 MG CAP.ER.24H (FP) PO SCH (08:15)
[2017-03-29] MEDS: SEVELAMER CARBONATE 800 MG TAB (FP) PO SCH ×3 (08:15→17:44)
[2017-03-29] MEDS: AMINO ACIDS/PROTEIN HYDROLYS 30 ML LIQUID.PKT PO SCH (09:31)
[2017-03-29] MEDS: POLYETHYLENE GLYCOL 3350 119 GM BTL PO SCH (09:31)
[2017-03-29 10:53] LABS: CHLORIDE 102 mmol/L (98-107); POTASSIUM 3.9 mmol/L (3.5-5.1); SODIUM 140 mmol/L (136-145)
[2017-03-29 11:12] LABS: ALBUMIN 2.6 g/dl (3.4-5.0); ALK PHOS 83 U/L (45-117); ANION GAP 8 (8-16); BILIRUBIN,TOTAL 0.4 mg/dL (0.2-1.0); BLOOD UREA NITROGEN 29 mg/dL (7-18); CALCIUM 8.2 mg/dL (8.5-10.1); CO2 30 mmol/L (21-32); GLUCOSE,RANDOM 113 mg/dL (74-106); SGOT/AST 10 U/L (15-37); SGPT/ALT 12 U/L (12-78)
--- NOTE | 2017-03-29 11:15 | PN ---
Progress Note (short form) - Note Progress Note: Renal follow up for ESRD on HD Pt seen and examined at the bedside awake and alert no acute complaints denies any sob, chest pain, abd pain, N/V/D abbott in place with bloody urine still s/p dialysis yesterday Vital Signs Temperature 99.4 F 03/29/17 08:20 Pulse Rate 58 L 03/29/17 08:20 Respiratory Rate 18 03/29/17 08:20 Blood Pressure 143/74 03/29/17 08:20 O2 Sat by Pulse Oximetry (%) 97 03/29/17 08:17 Intake & Output 03/26/17 03/27/17 03/28/17 03/29/17 23:59 23:59 23:59 23:59 Intake Total 922.4 731.6 738.0 380 Output Total 500 363 549 1591 Balance 422.4 531.6 -12.0 -820 Weight 87.997 kg 87.77 kg 89.584 kg 92.17 kg NAD RRR, + systolic click CTA soft NT/ND No LE edema abbott in place with bloody urine CBC, BMP 03/29/17 06:05 03/29/17 09:55 Current Medications Acetaminophen (Tylenol -) 650 mg PO Q4H PRN PRN Reason: PAIN OR FEVER Last Admin: 03/25/17 22:41 Dose: 650 mg Amino Acids (Prosource No Carb Liquid Pkt) 30 ml PO DAILY [facility] Last Admin: 03/29/17 09:31 Dose: 30 ml Atorvastatin Calcium (Lipitor -) 20 mg PO HS [facility] Last Admin: 03/28/17 22:55 Dose: 20 mg Docusate Sodium (Colace -) 100 mg PO TID [facility] Last Admin: 03/29/17 06:05 Dose: 100 mg Heparin Sodium (Porcine) (Heparin -) 1,000 unit IVPUSH PRN PRN PRN Reason: Heparin Heparin Sodium (Porcine) (Heparin -) 5,000 unit IVPUSH PRN PRN PRN Reason: Heparin Heparin Sodium (Porcine) 25, (000 unit/ Sodium Chloride) 500 mls @ 27.2 mls/hr IV TITR [facility]; 1,360 UNIT/HR PRN Reason: Protocol Last Admin: 03/28/17 17:37 Dose: 1,460 unit/hr, 29.2 mls/hr Polyethylene Glycol (Miralax (For Daily Use) -) 17 gm PO DAILY [facility] Last Admin: 03/29/17 09:31 Dose: 17 gm Sevelamer Carbonate (Renvela -) 1,600 mg PO TIDCM [facility] Last Admin: 03/29/17 08:15 Dose: 1,600 mg Tamsulosin HCl (Flomax -) 0.4 mg PO DAILY@0830 [facility] Last Admin: 03/29/17 08:15 Dose: 0.4 mg 86 year old gentleman wit PMhx of ESRD on HD (MWF x 1.5 years), Hypertension, MVR on Coumadin recent urolift procedure who presented with clogged abbott catheter and hematuira. #ESRD on HD s/p dialysis yesterday no acute need for [employer] today #Gross Hematuria abbott in place trend CBC on Heparin gtt off Warfarin will continue ABILIO with HD Heme and Urology follow up #MVR on Coumadin on Heparin gtt now off Warfarin Lamonte Kapadia DO
[2017-03-29 12:07] LABS: CREATININE 9.5 mg/dL (0.7-1.3)
--- NOTE | 2017-03-29 12:08 | PN ---
Physical Exam: SUBJECTIVE: Patient seen and examined OBJECTIVE: abbott continues to be irrigated w/o difficulty, but with gross hematuria Continue to hold coumadin until urine clears, on heparin drip Maintaining hmg/hct low stable despite gross hematuria Vital Signs Period Temp Pulse Resp BP Sys/Tomas Pulse Ox Last 24 Hr 98.2 F-99.5 F 46-63 18-20 120-143/51-75 97-98 GENERAL: The patient is awake, alert, and fully oriented, in no acute distress. HEAD: Normal with no signs of trauma. EYES: PERRL, extraocular movements intact, sclera anicteric, conjunctiva clear. No ptosis. ENT: Ears normal, nares patent, oropharynx clear without exudates, moist mucous membranes. NECK: Trachea midline, full range of motion, supple. LUNGS: Breath sounds equal, clear to auscultation bilaterally, no wheezes, no crackles, no accessory muscle use. HEART: irregular, mechanical aortic valve auscultated ABDOMEN: Soft, nontender, nondistended, normoactive bowel sounds, no guarding, no rebound, no hepatosplenomegaly, no masses. EXTREMITIES: 2+ pulses, warm, well-perfused, no edema. NEUROLOGICAL: Cranial nerves II through XII grossly intact. Normal speech, gait not observed. PSYCH: Normal mood, normal affect. SKIN: Warm, dry, normal turgor, no rashes or lesions noted Laboratory Results - last 24 hr 03/28/17 03/28/17 03/29/17 15:30 20:00 06:05 WBC 6.8 6.3 6.9 RBC 2.69 L 2.66 L 2.68 L Hgb 8.9 L 8.9 L 8.8 L Hct 26.9 L 26.6 L 26.9 L MCV 100.2 H 100.2 H 100.4 H MCH 33.3 33.3 32.9 MCHC 33.2 33.3 32.8 RDW 18.3 H 18.6 H 19.2 H Plt Count 220 216 230 MPV 8.5 8.1 8.3 Neutrophils % 73.6 73.1 Lymphocytes % 11.3 D 13.3 Monocytes % 10.7 H 8.9 Eosinophils % 3.9 4.1 Basophils % 0.5 0.6 PTT (Actin FS) Sodium Potassium Chloride Carbon Dioxide Anion Gap BUN Creatinine Creat Clearance w eGFR Random Glucose Calcium Total Bilirubin AST ALT Alkaline Phosphatase Total Protein Albumin 03/29/17 03/29/17 09:55 09:55 WBC RBC Hgb Hct MCV MCH MCHC RDW Plt Count MPV Neutrophils % Lymphocytes % Monocytes % Eosinophils % Basophils % PTT (Actin FS) 50.1 H Sodium 140 Potassium 3.9 Chloride 102 Carbon Dioxide 30 Anion Gap 8 BUN 29 H D Creatinine 9.5 H* D Creat Clearance w eGFR 5.32 Random Glucose 113 H D Calcium 8.2 L Total Bilirubin 0.4 D AST 10 L D ALT 12 D Alkaline Phosphatase 83 Total Protein 5.0 L Albumin 2.6 L Active Medications Generic Name Dose Route Start Last Admin Trade Name Freq PRN Reason Stop Dose Admin Acetaminophen 650 mg 03/19/17 18:50 03/25/17 22:41 Tylenol - PO 650 mg Q4H PRN Administration PAIN OR FEVER Amino Acids 30 ml 03/20/17 10:00 03/29/17 09:31 Prosource No Carb Liquid Pkt PO 30 ml DAILY [facility] Administration Atorvastatin Calcium 20 mg 03/19/17 22:00 03/28/17 22:55 Lipitor - PO 20 mg HS [facility] Administration Docusate Sodium 100 mg 03/27/17 14:30 03/29/17 06:05 Colace - PO 100 mg TID [facility] Administration Epoetin Dominik 20,000 unit 03/30/17 06:00 Epogen - IVPUSH 03/30/17 06:01 ONCE ONE Heparin Sodium (Porcine) 1,000 unit 03/22/17 16:36 Heparin - IVPUSH PRN PRN Heparin Heparin Sodium (Porcine) 5,000 unit 03/22/17 16:36 Heparin - IVPUSH PRN PRN Heparin Heparin Sodium (Porcine) 25, 500 mls @ 27.2 mls/hr 03/22/17 16:45 03/28/17 17 :37 000 unit/ Sodium Chloride IV 1,460 unit/hr TITR [facility] 29.2 mls/hr Protocol Administration 1,360 UNIT/HR Polyethylene Glycol 17 gm 03/27/17 14:30 03/29/17 09:31 Miralax (For Daily Use) - PO 17 gm DAILY [facility] Administration Sevelamer Carbonate 1,600 mg 03/20/17 08:00 03/29/17 08:15 Renvela - PO 1,600 mg TIDCM [facility] Administration Tamsulosin HCl 0.4 mg 03/20/17 08:30 03/29/17 08:15 Flomax - PO 0.4 mg DAILY@0830 [facility] Administration ASSESSMENT/PLAN: Patient is an 81 year old male with a past medical history of hypertension, hyperlipidemia, end stage renal disease (on dialysis), CVA and an aortic valve replacement, a.fib on Coumadin, BPH s/p urolift procedure on 03/17/17 who presented to the ED with hematuria with clots and severe blood loss anemia. : Gross Hematuria s/p Urolift with severe blood loss anemia I would monitor his labs closely (CBC), as he continues to have gross hematuria Has received 4 units of prbc since admission Will transfuse if hmg 8 or less secondary to heart disease Will restart Coumadin when urine is not with ant blood, but continues to be. Abbott irrigation by primary RN q 4 hours Hematology following Urology following Cardiology Atrial fibrillation s/p aortic valve replacement Goal INR 3-3.5 once coumadin restarted Remains on heparin drip for aortic valve Renal: ESRD on HD Dialysis today F.E.N. Fluids: PO as tolerated Electrolyes: monitor Nutrition: regular diet Prophylaxis: On Heparin gtt Disposition: requires continued inpatient care Visit type - Emergency Visit Emergency Visit: Yes ED Registration Date: 03/20/17 Care time: The patient presented to the Emergency Department on the above date and was hospitalized for further evaluation of their emergent condition. - New Patient This patient is new to me today: Yes Date on this admission: 03/29/17 - Critical Care Critical Care patient: No - Discharge Referral Referred to [facility] Med P.C.: No
--- NOTE | 2017-03-29 16:15 | PN ---
Progress Note (short form) - Note Progress Note: seen and examined CBC reviewed Kwan UOP noted Constitutional: Yes: No Distress, Calm Eyes: Yes: Conjunctiva Clear HENT: Yes: Atraumatic, Normocephalic Neck: Yes: Supple, Trachea Midline Cardiovascular: Yes: Regular Rate and Rhythm Respiratory: Yes: Regular, CTA Bilaterally Gastrointestinal: Yes: Normal Bowel Sounds, Soft Extremities: Yes: WNL Edema: No Neurological: Yes: Alert, Oriented Psychiatric: Yes: Alert Last Vital Signs Temp Pulse Resp BP Pulse Ox 99.2 F 54 L 18 114/58 97 03/29/17 14:12 03/29/17 14:12 03/29/17 14:12 03/29/17 14:12 03/29/17 08:17 CBC, BMP 03/29/17 06:05 03/29/17 09:55 Current Medications Generic Name Dose Route Start Last Admin Trade Name Freq PRN Reason Stop Dose Admin Acetaminophen 650 mg 03/19/17 18:50 03/25/17 22:41 Tylenol - PO 650 mg Q4H PRN Administration PAIN OR FEVER Amino Acids 30 ml 03/20/17 10:00 03/29/17 09:31 Prosource No Carb Liquid Pkt PO 30 ml DAILY [facility] Administration Atorvastatin Calcium 20 mg 03/19/17 22:00 03/28/17 22:55 Lipitor - PO 20 mg HS [facility] Administration Docusate Sodium 100 mg 03/27/17 14:30 03/29/17 13:44 Colace - PO 100 mg TID [facility] Administration Epoetin Dominik 20,000 unit 03/30/17 06:00 Epogen - IVPUSH 03/30/17 06:01 ONCE ONE Heparin Sodium (Porcine) 1,000 unit 03/22/17 16:36 Heparin - IVPUSH PRN PRN Heparin Heparin Sodium (Porcine) 5,000 unit 03/22/17 16:36 Heparin - IVPUSH PRN PRN Heparin Heparin Sodium (Porcine) 25, 500 mls @ 27.2 mls/hr 03/22/17 16:45 03/28/17 17 :37 000 unit/ Sodium Chloride IV 1,460 unit/hr TITR [facility] 29.2 mls/hr Protocol Administration 1,360 UNIT/HR Polyethylene Glycol 17 gm 03/27/17 14:30 03/29/17 09:31 Miralax (For Daily Use) - PO 17 gm DAILY [facility] Administration Sevelamer Carbonate 1,600 mg 03/20/17 08:00 03/29/17 12:13 Renvela - PO 1,600 mg TIDCM [facility] Administration Tamsulosin HCl 0.4 mg 03/20/17 08:30 03/29/17 08:15 Flomax - PO 0.4 mg DAILY@0830 [facility] Administration Anemia hematuria cbc stable continue to monitor. ESRD: h/o CVA MVR: On IV heparin cardiology consult noted.
[2017-03-29] MEDS: ATORVASTATIN CA 20 MG TABLET (FP) PO SCH (21:18)
[2017-03-29] MEDS ORDERED: HEPARIN NA (PORCINE) 5,000 UNITS/ML 1ML VIAL IVPUSH PRN (21:19)
[2017-03-29] MEDS: HEPARIN - 25,000 UNIT in SODIUM CHLORIDE 495 ML IV SCH (21:30)
[2017-03-30] MEDS: DOCUSATE SODIUM 100 MG CAPSULE (FP) PO SCH ×3 (05:46→22:05)
[2017-03-30] MEDS: TAMSULOSIN HCL 0.4 MG CAP.ER.24H (FP) PO SCH (07:37)
[2017-03-30] MEDS: SEVELAMER CARBONATE 800 MG TAB (FP) PO SCH ×3 (07:37→17:13)
[2017-03-30 08:09] LABS: HEMATOCRIT 23.9 % (35.4-49); HEMOGLOBIN 7.8 GM/dL (11.7-16.9); MCH 32.9 pg (25.7-33.7); MCHC 32.6 g/dl (32.0-35.9); MEAN CELL VOLUME 100.7 fl (80-96); MEAN PLT VOLUME 8.1 fl (7.5-11.1); PLATELET COUNT 209 K/MM3 (134-434); RBC 2.38 M/mm3 (4.00-5.60); RDW 19.3 % (11.9-15.9); WHITE BLOOD COUNT 7.5 K/mm3 (4.0-10.0)
[2017-03-30 08:38] LABS: CALCIUM 8.5 mg/dL (8.5-10.1); CHLORIDE 102 mmol/L (98-107); POTASSIUM 4.4 mmol/L (3.5-5.1); SODIUM 139 mmol/L (136-145)
[2017-03-30 08:51] LABS: ALBUMIN 2.6 g/dl (3.4-5.0); ALK PHOS 85 U/L (45-117); ANION GAP 9 (8-16); BILIRUBIN,TOTAL 0.6 mg/dL (0.2-1.0); BLOOD UREA NITROGEN 42 mg/dL (7-18); CO2 28 mmol/L (21-32); GLUCOSE,RANDOM 79 mg/dL (74-106); SGOT/AST 11 U/L (15-37); SGPT/ALT 13 U/L (12-78); TOT PROT 5.1 g/dl (6.4-8.2)
[2017-03-30 08:56] LABS: CREATININE 11.3 mg/dL (0.7-1.3)
[2017-03-30] MEDS ORDERED: EPOETIN ALFA 20,000 UNIT/1 ML VIAL IVPUSH ONE (09:00)
[2017-03-30] MEDS: POLYETHYLENE GLYCOL 3350 119 GM BTL PO SCH (10:52)
[2017-03-30] MEDS: AMINO ACIDS/PROTEIN HYDROLYS 30 ML LIQUID.PKT PO SCH (10:52)
--- NOTE | 2017-03-30 12:21 | PN ---
Progress Note (short form) - Note Progress Note: Subjective: The patient was seen and examined at the bedside, he has no complaints at this time Current Medications Generic Name Dose Route Start Last Admin Trade Name Estrellita PRN Reason Stop Dose Admin Acetaminophen 650 mg 03/19/17 18:50 03/25/17 22:41 Tylenol - PO 650 mg Q4H PRN Administration PAIN OR FEVER Amino Acids 30 ml 03/20/17 10:00 03/26/17 09:34 Prosource No Carb Liquid Pkt PO 30 ml DAILY GRISEL Administration Atorvastatin Calcium 20 mg 03/19/17 22:00 03/25/17 22:41 Lipitor - PO 20 mg HS GRISEL Administration Heparin Sodium (Porcine) 1,000 unit 03/22/17 16:36 Heparin - IVPUSH PRN PRN Heparin Heparin Sodium (Porcine) 5,000 unit 03/22/17 16:36 Heparin - IVPUSH PRN PRN Heparin CEFTRIAXONE 1 G/50 ML PREMIX 50 mls @ 100 mls/hr 03/20/17 10:00 03/26/17 09: 34 Ceftriaxone 1 Gm-D5w Bag IVPB 100 mls/hr DAILY GRISEL Administration Heparin Sodium (Porcine) 25, 500 mls @ 27.2 mls/hr 03/22/17 16:45 03/26/17 09 :00 000 unit/ Sodium Chloride IV 1,460 unit/hr TITR GRISEL 29.2 mls/hr Protocol Administration 1,360 UNIT/HR Sevelamer Carbonate 1,600 mg 03/20/17 08:00 03/26/17 12:48 Renvela - PO 1,600 mg TIDCM GRISEL Administration Tamsulosin HCl 0.4 mg 03/20/17 08:30 03/26/17 08:25 Flomax - PO 0.4 mg DAILY@0830 GRISEL Administration Objective: Vital Signs Period Temp Pulse Resp BP Sys/Tomas Pulse Ox Last 24 Hr 97.7 F-99 F 46-59 18-22 119-151/49-67 99 Physical Exam: General: NAD Lungs: CTA bilaterally Heart: Irregular, S1S2 Abd: Soft, non-tender, non-distended. Abbott catheter with dark red urine and small clots CBCD WBC 6.5 K/mm3 (4.0-10.0) 03/27/17 06:37 RBC 2.74 M/mm3 (4.00-5.60) L 03/27/17 06:37 Hgb 9.0 GM/dL (11.7-16.9) L 03/27/17 06:37 Hct 27.4 % (35.4-49) L 03/27/17 06:37 MCV 99.9 fl (80-96) H 03/27/17 06:37 MCHC 32.8 g/dl (32.0-35.9) 03/27/17 06:37 RDW 18.0 % (11.9-15.9) H 03/27/17 06:37 Plt Count 213 K/MM3 (134-434) 03/27/17 06:37 MPV 8.3 fl (7.5-11.1) 03/27/17 06:37 CMP Sodium 142 mmol/L (136-145) 03/26/17 06:15 Potassium 3.8 mmol/L (3.5-5.1) 03/26/17 06:15 Chloride 102 mmol/L (98-107) 03/26/17 06:15 Carbon Dioxide 32 mmol/L (21-32) 03/26/17 06:15 Anion Gap 8 (8-16) 03/26/17 06:15 BUN 25 mg/dL (7-18) H D 03/26/17 06:15 Creatinine 7.6 mg/dL (0.7-1.3) H* D 03/26/17 06:15 Creat Clearance w eGFR 6.89 (>60) 03/26/17 06:15 Random Glucose 82 mg/dL (74-106) 03/26/17 06:15 Calcium 8.6 mg/dL (8.5-10.1) 03/26/17 06:15 Total Bilirubin 0.4 mg/dL (0.2-1.0) D 03/26/17 06:15 AST 13 U/L (15-37) L D 03/26/17 06:15 ALT 15 U/L (12-78) 03/26/17 06:15 Alkaline Phosphatase 82 U/L (45-117) 03/26/17 06:15 Total Protein 5.5 g/dl (6.4-8.2) L 03/26/17 06:15 Albumin 2.6 g/dl (3.4-5.0) L 03/26/17 06:15 CARDIAC ENZYMES Creatine Kinase 165 IU/L (39-308) 03/19/17 13:45 Troponin I 0.11 ng/ml (0.00-0.05) H 03/19/17 21:40 Microbiology 03/19/17 10:33 Urine - Urine Abbott Urine Culture - Final NO GROWTH OBTAINED Assessment: This is an 81 year old male with PMHx of HTN, hyperlipidemia, ESRD on HD, CVA (2012), aortic valve replacement, a.fib on Coumadin, BPH s/p urolift procedure on 03/17/17 who presented to [facility] ED with hematuria with clots and severe blood loss anemia Plan: 1) Severe blood loss anemia in the setting of hematuria s/p urolift - S/p 4u PRBC on 03/20, 2u PRBC on 03/23 - Hgb this AM 7.8, recheck this PM. If remains low, will transfuse - Discussed with Dr. Montiel, can discontinue abbott catheter tomorrow morning and restart Coumadin tomorrow night - Appreciate hematology consult 2) Hematuria s/p urolift - 03/19 renal/bladder ultrasound: 11x8.1x10.1 cm large heterogeneous echogenic lesion in the urinary bladder, hematoma vs. neoplasm - Per previous [employer] documentation, no further surgical intervention at this time per discussion with Dr. Bose - Awaiting urology for further evaluations 3) A.fib s/p aortic valve replacement - Goal INR 3-3.5 once coumadin restarted - Continue heparin gtt for now - Can bridge to Coumadin once cleared by urology 4) Pyuria - Urine culture with no growth, however will continue Ceftriaxone for now given recent instrumentation 5) ESRD on HD - Continue HD M,W,F 6) F/E/N: - Renal diet - Monitor electrolytes 7) Prophylaxis: - On Heparin gtt - F/u PT evaluation 8) Dispo: - Requires continued inpatient care CODE STATUS: FULL CODE Visit type - Emergency Visit Emergency Visit: Yes ED Registration Date: 03/20/17 Care time: The patient presented to the Emergency Department on the above date and was hospitalized for further evaluation of their emergent condition. - New Patient This patient is new to me today: No - Critical Care Critical Care patient: No
[2017-03-30 14:01] LABS: HEMATOCRIT 27.4 % (35.4-49); MCH 32.9 pg (25.7-33.7); MEAN CELL VOLUME 99.7 fl (80-96); MEAN PLT VOLUME 7.5 fl (7.5-11.1); PLATELET COUNT 192 K/MM3 (134-434); RBC 2.75 M/mm3 (4.00-5.60); RDW 19.6 % (11.9-15.9); WHITE BLOOD COUNT 8.7 K/mm3 (4.0-10.0)
--- NOTE | 2017-03-30 15:07 | PN ---
Progress Note (short form) - Note Progress Note: Renal follow up for ESRD on HD Pt seen and examined at the bedside no acute complaints s/p dialysis earlier today received 1 unit prbc no sob, chest pain, abd pain, N/V/D Vital Signs Temperature 98.8 F 03/30/17 14:16 Pulse Rate 49 L 03/30/17 14:16 Respiratory Rate 18 03/30/17 14:16 Blood Pressure 111/51 03/30/17 14:16 O2 Sat by Pulse Oximetry (%) 98 03/30/17 08:02 Intake & Output 03/27/17 03/28/17 03/29/17 03/30/17 23:59 23:59 23:59 23:59 Intake Total 731.6 738.0 753.6 747.6 Output Total 465 497 0624 500 Balance 531.6 -12.0 -1196.4 247.6 Weight 87.77 kg 89.584 kg 92.17 kg 92.136 kg NAD RRR, + systolic click CTA soft NT/ND No LE edema abbott in place with bloody urine CBC, BMP 03/30/17 13:58 03/30/17 07:15 Current Medications Acetaminophen (Tylenol -) 650 mg PO Q4H PRN PRN Reason: PAIN OR FEVER Last Admin: 03/25/17 22:41 Dose: 650 mg Amino Acids (Prosource No Carb Liquid Pkt) 30 ml PO DAILY GRISEL Last Admin: 03/30/17 10:52 Dose: Not Given Atorvastatin Calcium (Lipitor -) 20 mg PO HS GRISEL Last Admin: 03/29/17 21:18 Dose: 20 mg Docusate Sodium (Colace -) 100 mg PO TID GRISEL Last Admin: 03/30/17 14:30 Dose: 100 mg Heparin Sodium (Porcine) (Heparin -) 1,000 unit IVPUSH PRN PRN PRN Reason: Heparin Heparin Sodium (Porcine) (Heparin -) 5,000 unit IVPUSH PRN PRN PRN Reason: Heparin Last Admin: 03/30/17 10:54 Dose: 5,000 unit Heparin Sodium (Porcine) 25, (000 unit/ Sodium Chloride) 500 mls @ 20 mls/hr IV TITR GRISEL; 1,000 UNIT/HR PRN Reason: Protocol Last Titration: 03/30/17 10:53 Dose: 1,610 unit/hr, 32.2 mls/hr Polyethylene Glycol (Miralax (For Daily Use) -) 17 gm PO DAILY [facility] Last Admin: 03/30/17 10:52 Dose: Not Given Sevelamer Carbonate (Renvela -) 1,600 mg PO TIDCM [facility] Last Admin: 03/30/17 11:47 Dose: 1,600 mg Tamsulosin HCl (Flomax -) 0.4 mg PO DAILY@0830 [facility] Last Admin: 03/30/17 07:37 Dose: 0.4 mg 86 year old gentleman wit PMhx of ESRD on HD (MWF x 1.5 years), Hypertension, MVR on Coumadin recent urolift procedure who presented with clogged abbott catheter and hematuira. #ESRD on HD tolerated HD well today will continue HD 3x weekly as inpatient #Gross Hematuria trend CBC s/p 1 unit prbc today will continue high dose ABILIO with HD Heme and following #MVR on Coumadin on Heparin gtt now off Warfarin Lamonte Kapadia DO
[2017-03-30] MEDS: ATORVASTATIN CA 20 MG TABLET (FP) PO SCH (22:05)
[2017-03-31] MEDS ORDERED: CALCIUM CARBONATE 650 MG TABLET PO ONE (00:45)
[2017-03-31] MEDS: DOCUSATE SODIUM 100 MG CAPSULE (FP) PO SCH ×3 (06:21→21:22)
[2017-03-31 06:53] LABS: BASO % 0.5 % (0-2.0); HEMATOCRIT 27.5 % (35.4-49); HEMOGLOBIN 9.1 GM/dL (11.7-16.9); MCH 32.9 pg (25.7-33.7); MCHC 33.1 g/dl (32.0-35.9); MEAN CELL VOLUME 99.6 fl (80-96); MEAN PLT VOLUME 8.2 fl (7.5-11.1); MONO % 9.2 % (3.8-10.2); NEUT % 76.3 % (42.8-82.8); PLATELET COUNT 202 K/MM3 (134-434); RBC 2.76 M/mm3 (4.00-5.60); RDW 19.4 % (11.9-15.9); WHITE BLOOD COUNT 9.9 K/mm3 (4.0-10.0)
[2017-03-31 07:01] LABS: ALBUMIN 2.6 g/dl (3.4-5.0); ANION GAP 10 (8-16); BLOOD UREA NITROGEN 21 mg/dL (7-18); CALCIUM 8.9 mg/dL (8.5-10.1); CHLORIDE 103 mmol/L (98-107); CO2 31 mmol/L (21-32); CREATININE 7.2 mg/dL (0.7-1.3); GLUCOSE,RANDOM 83 mg/dL (74-106); POTASSIUM 3.9 mmol/L (3.5-5.1); SGOT/AST 12 U/L (15-37); SGPT/ALT 14 U/L (12-78); SODIUM 144 mmol/L (136-145)
[2017-03-31 07:03] LABS: ALK PHOS 88 U/L (45-117); BILIRUBIN,TOTAL 0.6 mg/dL (0.2-1.0); TOT PROT 5.4 g/dl (6.4-8.2)
[2017-03-31 07:08] LABS: INR 1.15 (0.82-1.09)
[2017-03-31] MEDS: SEVELAMER CARBONATE 800 MG TAB (FP) PO SCH ×3 (09:00→18:09)
[2017-03-31] MEDS: TAMSULOSIN HCL 0.4 MG CAP.ER.24H (FP) PO SCH (09:00)
[2017-03-31] MEDS: AMINO ACIDS/PROTEIN HYDROLYS 30 ML LIQUID.PKT PO SCH (09:00)
[2017-03-31] MEDS: HEPARIN NA (PORCINE) 5,000 UNITS/ML 1ML VIAL IVPUSH PRN (09:02)
[2017-03-31] MEDS: HEPARIN - 25,000 UNIT in SODIUM CHLORIDE 495 ML IV SCH (09:02)
[2017-03-31] MEDS: POLYETHYLENE GLYCOL 3350 119 GM BTL PO SCH (09:03)
--- NOTE | 2017-03-31 09:16 | PN ---
Progress Note (short form) - Note Progress Note: Subjective: The patient was seen and examined at the bedside, he has no complaints at this time Current Medications Generic Name Dose Route Start Last Admin Trade Name Estrellita PRN Reason Stop Dose Admin Acetaminophen 650 mg 03/19/17 18:50 03/25/17 22:41 Tylenol - PO 650 mg Q4H PRN Administration PAIN OR FEVER Amino Acids 30 ml 03/20/17 10:00 03/31/17 09:00 Prosource No Carb Liquid Pkt PO 30 ml DAILY GRISEL Administration Atorvastatin Calcium 20 mg 03/19/17 22:00 03/30/17 22:05 Lipitor - PO 20 mg HS RGISEL Administration Docusate Sodium 100 mg 03/27/17 14:30 03/31/17 06:21 Colace - PO Not Given TID GRISEL Heparin Sodium (Porcine) 1,000 unit 03/29/17 21:19 03/31/17 09:02 Heparin - IVPUSH 1,000 unit PRN PRN Administration Heparin Heparin Sodium (Porcine) 5,000 unit 03/29/17 21:19 03/30/17 10:54 Heparin - IVPUSH 5,000 unit PRN PRN Administration Heparin Heparin Sodium (Porcine) 25, 500 mls @ 20 mls/hr 03/29/17 21:30 03/31/17 09: 02 000 unit/ Sodium Chloride IV 1,710 unit/hr TITR GRISEL 34.2 mls/hr Protocol Administration 1,000 UNIT/HR Polyethylene Glycol 17 gm 03/27/17 14:30 03/31/17 09:03 Miralax (For Daily Use) - PO 17 gm DAILY GRISEL Administration Sevelamer Carbonate 1,600 mg 03/20/17 08:00 03/31/17 09:00 Renvela - PO 1,600 mg TIDCM GRISEL Administration Tamsulosin HCl 0.4 mg 03/20/17 08:30 03/31/17 09:00 Flomax - PO 0.4 mg DAILY@0830 GRISEL Administration Objective: Vital Signs Period Temp Pulse Resp BP Sys/Tomas Pulse Ox Last 24 Hr 98.2 F-99.5 F 49-77 18-20 104-154/51-95 99 Physical Exam: General: NAD Lungs: CTA bilaterally Heart: Irregular, S1S2 Abd: Soft, non-tender, non-distended CBCD WBC 9.9 K/mm3 (4.0-10.0) 03/31/17 05:05 RBC 2.76 M/mm3 (4.00-5.60) L 03/31/17 05:05 Hgb 9.1 GM/dL (11.7-16.9) L 03/31/17 05:05 Hct 27.5 % (35.4-49) L 03/31/17 05:05 MCV 99.6 fl (80-96) H 03/31/17 05:05 MCHC 33.1 g/dl (32.0-35.9) 03/31/17 05:05 RDW 19.4 % (11.9-15.9) H 03/31/17 05:05 Plt Count 202 K/MM3 (134-434) 03/31/17 05:05 MPV 8.2 fl (7.5-11.1) 03/31/17 05:05 CMP Sodium 144 mmol/L (136-145) 03/31/17 05:05 Potassium 3.9 mmol/L (3.5-5.1) 03/31/17 05:05 Chloride 103 mmol/L (98-107) 03/31/17 05:05 Carbon Dioxide 31 mmol/L (21-32) 03/31/17 05:05 Anion Gap 10 (8-16) 03/31/17 05:05 BUN 21 mg/dL (7-18) H D 03/31/17 05:05 Creatinine 7.2 mg/dL (0.7-1.3) H D 03/31/17 05:05 Creat Clearance w eGFR 7.33 (>60) 03/31/17 05:05 Random Glucose 83 mg/dL (74-106) 03/31/17 05:05 Calcium 8.9 mg/dL (8.5-10.1) 03/31/17 05:05 Total Bilirubin 0.6 mg/dL (0.2-1.0) 03/31/17 05:05 AST 12 U/L (15-37) L 03/31/17 05:05 ALT 14 U/L (12-78) 03/31/17 05:05 Alkaline Phosphatase 88 U/L (45-117) 03/31/17 05:05 Total Protein 5.4 g/dl (6.4-8.2) L 03/31/17 05:05 Albumin 2.6 g/dl (3.4-5.0) L 03/31/17 05:05 CARDIAC ENZYMES Creatine Kinase 165 IU/L (39-308) 03/19/17 13:45 Troponin I 0.11 ng/ml (0.00-0.05) H 03/19/17 21:40 Microbiology 03/19/17 10:33 Urine - Urine Abbott Urine Culture - Final NO GROWTH OBTAINED Assessment: This is an 81 year old male with PMHx of HTN, hyperlipidemia, ESRD on HD, CVA (2012), aortic valve replacement, a.fib on Coumadin, BPH s/p urolift procedure on 03/17/17 who presented to [facility] ED with hematuria with clots and severe blood loss anemia Plan: 1) Severe blood loss anemia in the setting of hematuria s/p urolift - S/p 4u PRBC on 03/20, 2u PRBC on 03/23 - Hgb stable - Discontinue abbott catheter this AM, start Coumadin once patient is voiding - Appreciate hematology consult 2) Hematuria s/p urolift - 03/19 renal/bladder ultrasound: 11x8.1x10.1 cm large heterogeneous echogenic lesion in the urinary bladder, hematoma vs. neoplasm - Per previous [employer] documentation, no further surgical intervention at this time per discussion with Dr. Boes - Abbott catheter removed this AM, DTV tria - Awaiting urology for further evaluations 3) A.fib s/p aortic valve replacement - Goal INR 2.5-3.5 once coumadin restarted - Heparin bridge to Coumadin starting today 4) Pyuria - Completed course of Ceftriaxone 5) ESRD on HD - Continue HD M,W,F 6) F/E/N: - Renal diet - Monitor electrolytes 7) Prophylaxis: - On Heparin gtt - PT 8) Dispo: - Requires continued inpatient care CODE STATUS: FULL CODE Visit type - Emergency Visit Emergency Visit: Yes ED Registration Date: 03/20/17 Care time: The patient presented to the Emergency Department on the above date and was hospitalized for further evaluation of their emergent condition. - New Patient This patient is new to me today: No - Critical Care Critical Care patient: No
--- NOTE | 2017-03-31 09:50 | PN ---
Progress Note (short form) - Note Progress Note: [id number] persistant darkish no clotts Problem List - Problems (1) Hematuria Code(s): R31.9 - HEMATURIA, UNSPECIFIED (2) Gross hematuria Assessment/Plan: abbott removed for tov Urine previously clearing cont heparin restart coumadin Will follow Code(s): R31.0 - GROSS HEMATURIA
--- NOTE | 2017-03-31 11:57 | PN ---
Progress Note (short form) - Note Progress Note: Renal follow up for ESRD on HD Pt seen and examined at the bedside no acute complaints abbott removed denies any sob, chest pain, abd pain Vital Signs Temperature 98 F 03/31/17 09:00 Pulse Rate 58 L 03/31/17 09:00 Respiratory Rate 18 03/31/17 09:00 Blood Pressure 150/66 03/31/17 09:00 O2 Sat by Pulse Oximetry (%) 100 03/31/17 09:00 Intake & Output 03/28/17 03/29/17 03/30/17 03/31/17 23:59 23:59 23:59 23:59 Intake Total 738.0 753.6 1007.6 448 Output Total 750 1950 500 Balance -12.0 -1196.4 507.6 448 Weight 89.584 kg 92.17 kg 92.136 kg 93.894 kg NAD RRR, + systolic click CTA soft NT/ND No LE edema abbott in place with bloody urine CBC, BMP 03/31/17 05:05 03/31/17 05:05 Current Medications Acetaminophen (Tylenol -) 650 mg PO Q4H PRN PRN Reason: PAIN OR FEVER Last Admin: 03/25/17 22:41 Dose: 650 mg Amino Acids (Prosource No Carb Liquid Pkt) 30 ml PO DAILY GRISEL Last Admin: 03/31/17 09:00 Dose: 30 ml Atorvastatin Calcium (Lipitor -) 20 mg PO HS GRISEL Last Admin: 03/30/17 22:05 Dose: 20 mg Docusate Sodium (Colace -) 100 mg PO TID GRISEL Last Admin: 03/31/17 06:21 Dose: Not Given Heparin Sodium (Porcine) (Heparin -) 1,000 unit IVPUSH PRN PRN PRN Reason: Heparin Last Admin: 03/31/17 09:02 Dose: 1,000 unit Heparin Sodium (Porcine) (Heparin -) 5,000 unit IVPUSH PRN PRN PRN Reason: Heparin Last Admin: 03/30/17 10:54 Dose: 5,000 unit Heparin Sodium (Porcine) 25, (000 unit/ Sodium Chloride) 500 mls @ 20 mls/hr IV TITR GRISEL; 1,000 UNIT/HR PRN Reason: Protocol Last Admin: 03/31/17 09:02 Dose: 1,710 unit/hr, 34.2 mls/hr Polyethylene Glycol (Miralax (For Daily Use) -) 17 gm PO DAILY [facility] Last Admin: 03/31/17 09:03 Dose: 17 gm Sevelamer Carbonate (Renvela -) 1,600 mg PO TIDCM [facility] Last Admin: 03/31/17 09:00 Dose: 1,600 mg Tamsulosin HCl (Flomax -) 0.4 mg PO DAILY@0830 [facility] Last Admin: 03/31/17 09:00 Dose: 0.4 mg 86 year old gentleman wit PMhx of ESRD on HD (MWF x 1.5 years), Hypertension, MVR on Coumadin recent urolift procedure who presented with clogged abbott catheter and hematuira. #ESRD on HD no indication for dialysis today next dialysis planned for tomorrow dose all meds for intermittent HD #Gross Hematuria abbott removed awaiting first void trend CBC urology follow up #MVR on Coumadin on Heparin gtt cardiology following Lamonte Kapadia DO
[2017-03-31] MEDS: WARFARIN NA 5 MG TABLET (UD) PO SCH (20:43)
[2017-03-31] MEDS: ATORVASTATIN CA 20 MG TABLET (FP) PO SCH (21:22)
[2017-04-01] MEDS ORDERED: FUROSEMIDE 40 MG/4 ML INJECTABLE VIAL IVPUSH ONE (04:45)
--- NOTE | 2017-04-01 05:16 | HOSP ---
Subjective - Review of Symptoms Events since last encounter: Called to bedside for BP190/96. Patient reports increased SOB a this time. Physical Examination Vital Signs: Vital Signs Temperature 97.7 F 04/01/17 02:00 Pulse Rate 60 04/01/17 02:00 Respiratory Rate 20 04/01/17 02:00 Blood Pressure 173/83 04/01/17 02:00 O2 Sat by Pulse Oximetry (%) 99 03/31/17 21:00 Respiratory: Yes: SOB, Wheezes (scattered) Labs: CBC, BMP 03/31/17 05:05 03/31/17 05:05 Hospitalist Encounter Assessment: 81 yo man with ESRD now with hematuria s/p urolift procedure. Case d/w Dr. Kapadia. Plan to call HD tech in to start HD earlier than scheduled. Low threshold for NIPPV.
[2017-04-01] MEDS: DOCUSATE SODIUM 100 MG CAPSULE (FP) PO SCH ×3 (05:59→22:06)
[2017-04-01] MEDS: HEPARIN - 25,000 UNIT in SODIUM CHLORIDE 495 ML IV SCH (07:24)
[2017-04-01] MEDS: TAMSULOSIN HCL 0.4 MG CAP.ER.24H (FP) PO SCH (07:58)
[2017-04-01] MEDS: SEVELAMER CARBONATE 800 MG TAB (FP) PO SCH ×3 (07:58→17:31)
--- NOTE | 2017-04-01 08:00 | PN ---
Progress Note (short form) - Note Progress Note: Renal follow up for ESRD on HD Pt seen and examined during dialysis pt noted has sob and mild respiratory distress this am dialysis nurse called in early to start dialysis pt currently getting treatment BP remains elevated UF goal is 3.5L pt has yet to void after abbott removed Vital Signs Temperature 98.4 F 04/01/17 06:50 Pulse Rate 62 04/01/17 07:30 Respiratory Rate 18 04/01/17 07:30 Blood Pressure 172/84 04/01/17 07:30 O2 Sat by Pulse Oximetry (%) 99 03/31/17 21:00 Intake & Output 03/29/17 03/30/17 03/31/17 04/01/17 23:59 23:59 23:59 23:59 Intake Total 753.6 1007.6 948 610.4 Output Total 1950 500 Balance -1196.4 507.6 948 610.4 Weight 92.17 kg 92.136 kg 93.894 kg NAD RRR, + systolic click Dec BS soft NT/ND No LE edema CBC, BMP 03/31/17 05:05 03/31/17 05:05 Current Medications Acetaminophen (Tylenol -) 650 mg PO Q4H PRN PRN Reason: PAIN OR FEVER Last Admin: 03/25/17 22:41 Dose: 650 mg Amino Acids (Prosource No Carb Liquid Pkt) 30 ml PO DAILY [facility] Last Admin: 03/31/17 09:00 Dose: 30 ml Atorvastatin Calcium (Lipitor -) 20 mg PO HS [facility] Last Admin: 03/31/17 21:22 Dose: 20 mg Docusate Sodium (Colace -) 100 mg PO TID [facility] Last Admin: 04/01/17 05:59 Dose: Not Given Epoetin Dominik (Procrit -) 20,000 unit IVPUSH ONCE ONE Stop: 04/01/17 06:01 Heparin Sodium (Porcine) (Heparin -) 1,000 unit IVPUSH PRN PRN PRN Reason: Heparin Last Admin: 03/31/17 09:02 Dose: 1,000 unit Heparin Sodium (Porcine) (Heparin -) 5,000 unit IVPUSH PRN PRN PRN Reason: Heparin Last Admin: 03/30/17 10:54 Dose: 5,000 unit Heparin Sodium (Porcine) 25, (000 unit/ Sodium Chloride) 500 mls @ 20 mls/hr IV TITR GRISEL; 1,000 UNIT/HR PRN Reason: Protocol Last Admin: 04/01/17 07:24 Dose: 1,710 unit/hr, 34.2 mls/hr Polyethylene Glycol (Miralax (For Daily Use) -) 17 gm PO DAILY [facility] Last Admin: 03/31/17 09:03 Dose: 17 gm Sevelamer Carbonate (Renvela -) 1,600 mg PO TIDCM [facility] Last Admin: 04/01/17 07:58 Dose: 1,600 mg Tamsulosin HCl (Flomax -) 0.4 mg PO DAILY@0830 [facility] Last Admin: 04/01/17 07:58 Dose: 0.4 mg Warfarin Sodium (Coumadin -) 5 mg PO DAILY@1800 [facility] Last Admin: 03/31/17 20:43 Dose: 5 mg 86 year old gentleman wit PMhx of ESRD on HD (MWF x 1.5 years), Hypertension, MVR on Coumadin recent urolift procedure who presented with clogged abbott catheter and hematuira. #ESRD on HD with fluid overload currently getting dialysis with UF goal fo 3.5L as tolerated continue fluid and salt restriction will reaccess for additional UF tomorrow #Gross Hematuria abbott removed awaiting first void check bladder scan #MVR on Coumadin on Heparin gtt cardiology following Lamonte Kapadia DO
[2017-04-01] MEDS ORDERED: EPOETIN ALFA 20,000 UNIT/1 ML VIAL IVPUSH ONE (09:00)
[2017-04-01 09:05] LABS: HEMATOCRIT 28.4 % (35.4-49); HEMOGLOBIN 9.1 GM/dL (11.7-16.9); MCH 32.3 pg (25.7-33.7); MCHC 32.1 g/dl (32.0-35.9); MEAN CELL VOLUME 100.8 fl (80-96); MEAN PLT VOLUME 8.3 fl (7.5-11.1); PLATELET COUNT 213 K/MM3 (134-434); RBC 2.81 M/mm3 (4.00-5.60); RDW 19.8 % (11.9-15.9); WHITE BLOOD COUNT 11.4 K/mm3 (4.0-10.0)
[2017-04-01 09:06] LABS: INR 1.14 (0.82-1.09); PROTHROMBIN TIME (PATIENT) 12.9 SEC (9.98-11.88)
[2017-04-01 09:22] LABS: ANION GAP 12 (8-16); BLOOD UREA NITROGEN 32 mg/dL (7-18); CALCIUM 9.1 mg/dL (8.5-10.1); CHLORIDE 100 mmol/L (98-107); CO2 29 mmol/L (21-32); GLUCOSE,RANDOM 89 mg/dL (74-106); PHOSPHOROUS 4.2 mg/dL (2.5-4.9); POTASSIUM 4.4 mmol/L (3.5-5.1); SODIUM 141 mmol/L (136-145)
[2017-04-01] MEDS: AMINO ACIDS/PROTEIN HYDROLYS 30 ML LIQUID.PKT PO SCH (09:26)
[2017-04-01] MEDS: POLYETHYLENE GLYCOL 3350 119 GM BTL PO SCH (09:26)
[2017-04-01 09:33] LABS: CREATININE 9.3 mg/dL (0.7-1.3)
--- NOTE | 2017-04-01 12:24 | PN ---
Progress Note (short form) - Note Progress Note: seen and examined CBC reviewed abbott removed chart./cloud consultant notes reviewed Constitutional: Yes: No Distress, Calm Eyes: Yes: Conjunctiva Clear HENT: Yes: Atraumatic, Normocephalic Neck: Yes: Supple, Trachea Midline Cardiovascular: Yes: Regular Rate and Rhythm Respiratory: Yes: Regular, CTA Bilaterally Gastrointestinal: Yes: Normal Bowel Sounds, Soft Extremities: Yes: WNL Edema: No Neurological: Yes: Alert, Oriented Psychiatric: Yes: Alert Last Vital Signs Temp Pulse Resp BP Pulse Ox 98.2 F 58 L 18 136/60 98 04/01/17 10:00 04/01/17 11:18 04/01/17 11:18 04/01/17 11:18 04/01/17 09:00 CBC, BMP 04/01/17 07:00 04/01/17 07:00 Current Medications Generic Name Dose Route Start Last Admin Trade Name Freq PRN Reason Stop Dose Admin Acetaminophen 650 mg 03/19/17 18:50 03/25/17 22:41 Tylenol - PO 650 mg Q4H PRN Administration PAIN OR FEVER Amino Acids 30 ml 03/20/17 10:00 04/01/17 09:26 Prosource No Carb Liquid Pkt PO 30 ml DAILY GRIS[facility] Administration Atorvastatin Calcium 20 mg 03/19/17 22:00 03/31/17 21:22 Lipitor - PO 20 mg HS GRISEL Administration Docusate Sodium 100 mg 03/27/17 14:30 04/01/17 05:59 Colace - PO Not Given TID GRISEL Heparin Sodium (Porcine) 1,000 unit 03/29/17 21:19 03/31/17 09:02 Heparin - IVPUSH 1,000 unit PRN PRN Administration Heparin Heparin Sodium (Porcine) 5,000 unit 03/29/17 21:19 03/30/17 10:54 Heparin - IVPUSH 5,000 unit PRN PRN Administration Heparin Heparin Sodium (Porcine) 25, 500 mls @ 20 mls/hr 03/29/17 21:30 04/01/17 07: 24 000 unit/ Sodium Chloride IV 1,710 unit/hr TITR GRISEL 34.2 mls/hr Protocol Administration 1,000 UNIT/HR Polyethylene Glycol 17 gm 03/27/17 14:30 04/01/17 09:26 Miralax (For Daily Use) - PO 17 gm DAILY [facility] Administration Sevelamer Carbonate 1,600 mg 03/20/17 08:00 04/01/17 12:09 Renvela - PO 1,600 mg TIDCM [facility] Administration Tamsulosin HCl 0.4 mg 03/20/17 08:30 04/01/17 07:58 Flomax - PO 0.4 mg DAILY@0830 [facility] Administration Warfarin Sodium 5 mg 03/31/17 18:00 03/31/17 20:43 Coumadin - PO 5 mg DAILY@1800 [facility] Administration Anemia cbc stable TOV now, abbott remove ESRD: on HD per renal h/o CVA MVR: On AC, restarted warfarin careful monitoring of INR with monitoring of Hct
[2017-04-01] MEDS: WARFARIN NA 5 MG TABLET (UD) PO SCH (17:42)
--- NOTE | 2017-04-01 19:49 | PN ---
Physical Exam: SUBJECTIVE: Patient seen and examined OBJECTIVE: hypertensive and wheezing reported/received dialsysis today Vital Signs Period Temp Pulse Resp BP Sys/Tomas Pulse Ox Last 24 Hr 97.7 F-99.4 F 53-88 18-22 126-182/60-88 98-99 GENERAL: The patient is awake, alert, and fully oriented, in no acute distress. HEAD: Normal with no signs of trauma. EYES: PERRL, extraocular movements intact, sclera anicteric, conjunctiva clear. No ptosis. ENT: Ears normal, nares patent, oropharynx clear without exudates, moist mucous membranes. NECK: Trachea midline, full range of motion, supple. LUNGS: Breath sounds equal, diminshed bilaterally HEART: irregular, mechanical aortic valve auscultated ABDOMEN: Soft, nontender, nondistended, normoactive bowel sounds, no guarding, no rebound, no hepatosplenomegaly, no masses. EXTREMITIES: 2+ pulses, warm, well-perfused, no edema. NEUROLOGICAL: Cranial nerves II through XII grossly intact. Normal speech, gait not observed. PSYCH: Normal mood, normal affect. SKIN: Warm, dry, normal turgor, no rashes or lesions note Laboratory Results - last 24 hr 04/01/17 04/01/17 04/01/17 07:00 07:00 07:00 WBC 11.4 H RBC 2.81 L Hgb 9.1 L Hct 28.4 L MCV 100.8 H MCH 32.3 MCHC 32.1 RDW 19.8 H Plt Count 213 MPV 8.3 PT with INR 12.90 H INR 1.14 PTT (Actin FS) 69.2 H Sodium Potassium Chloride Carbon Dioxide Anion Gap BUN Creatinine Random Glucose Calcium Phosphorus 04/01/17 07:00 WBC RBC Hgb Hct MCV MCH MCHC RDW Plt Count MPV PT with INR INR PTT (Actin FS) Sodium 141 Potassium 4.4 Chloride 100 Carbon Dioxide 29 Anion Gap 12 BUN 32 H D Creatinine 9.3 H* D Random Glucose 89 Calcium 9.1 Phosphorus 4.2 Active Medications Generic Name Dose Route Start Last Admin Trade Name Freq PRN Reason Stop Dose Admin Acetaminophen 650 mg 03/19/17 18:50 03/25/17 22:41 Tylenol - PO 650 mg Q4H PRN Administration PAIN OR FEVER Amino Acids 30 ml 03/20/17 10:00 04/01/17 09:26 Prosource No Carb Liquid Pkt PO 30 ml DAILY [facility] Administration Atorvastatin Calcium 20 mg 03/19/17 22:00 03/31/17 21:22 Lipitor - PO 20 mg HS GRIS[facility] Administration Docusate Sodium 100 mg 03/27/17 14:30 04/01/17 13:39 Colace - PO 100 mg TID GR[facility] Administration Heparin Sodium (Porcine) 1,000 unit 03/29/17 21:19 03/31/17 09:02 Heparin - IVPUSH 1,000 unit PRN PRN Administration Heparin Heparin Sodium (Porcine) 5,000 unit 03/29/17 21:19 03/30/17 10:54 Heparin - IVPUSH 5,000 unit PRN PRN Administration Heparin Heparin Sodium (Porcine) 25, 500 mls @ 20 mls/hr 03/29/17 21:30 04/01/17 07: 24 000 unit/ Sodium Chloride IV 1,710 unit/hr TITR GR[facility] 34.2 mls/hr Protocol Administration 1,000 UNIT/HR Polyethylene Glycol 17 gm 03/27/17 14:30 04/01/17 09:26 Miralax (For Daily Use) - PO 17 gm DAILY [facility] Administration Sevelamer Carbonate 1,600 mg 03/20/17 08:00 04/01/17 17:31 Renvela - PO 1,600 mg TIDCM [facility] Administration Tamsulosin HCl 0.4 mg 03/20/17 08:30 04/01/17 07:58 Flomax - PO 0.4 mg DAILY@0830 [facility] Administration Warfarin Sodium 5 mg 03/31/17 18:00 04/01/17 17:42 Coumadin - PO 5 mg DAILY@1800 [facility] Administration ASSESSMENT/PLAN: Patient is an 81 year old male with a past medical history of hypertension, hyperlipidemia, end stage renal disease (on dialysis), CVA and an aortic valve replacement, a.fib on Coumadin, BPH s/p urolift procedure on 03/17/17 who presented to the ED with hematuria with clots and severe blood loss anemia. : Gross Hematuria s/p Urolift with severe blood loss anemia Has received 4 units of prbc since admission abbott removed, and no reported voids On heparin drip, with coumadin bridging Will transfuse if hmg 8 or less secondary to heart disease Hematology following Urology following Cardiology Atrial fibrillation s/p aortic valve replacement Goal INR 3-3.5 Remains on heparin drip for aortic valve Renal: ESRD on HD Dialysis today and tomorrow Overnight became hypertensive, short of breath F.E.N. Fluids: PO as tolerated Electrolyes: monitor Nutrition: regular diet Prophylaxis: On Heparin gtt with coumadin bridge Disposition: requires continued inpatient care
[2017-04-01] MEDS: ATORVASTATIN CA 20 MG TABLET (FP) PO SCH (22:05)
[2017-04-02] MEDS ORDERED: MAG HYDROX/AL HYDROX/SIMETH 30 ML UNIT-DOSE CUP PO ONE (02:16)
[2017-04-02] MEDS: DOCUSATE SODIUM 100 MG CAPSULE (FP) PO SCH ×4 (06:11→22:19)
[2017-04-02 06:54] LABS: BASO % 0.5 % (0-2.0); EOS % 2.2 % (0-4.5); HEMATOCRIT 27.5 % (35.4-49); LYMPH % 6.5 % (8-40); MCH 33.2 pg (25.7-33.7); MCHC 32.8 g/dl (32.0-35.9); MEAN CELL VOLUME 101.3 fl (80-96); MEAN PLT VOLUME 8.6 fl (7.5-11.1); MONO % 8.8 % (3.8-10.2); PLATELET COUNT 219 K/MM3 (134-434); RBC 2.72 M/mm3 (4.00-5.60); WHITE BLOOD COUNT 8.6 K/mm3 (4.0-10.0)
[2017-04-02 07:08] LABS: CHLORIDE 101 mmol/L (98-107); POTASSIUM 4.1 mmol/L (3.5-5.1); SODIUM 143 mmol/L (136-145)
[2017-04-02 07:31] LABS: ANION GAP 11 (8-16); BLOOD UREA NITROGEN 22 mg/dL (7-18); CALCIUM 8.9 mg/dL (8.5-10.1); CO2 31 mmol/L (21-32); CREATININE 7.4 mg/dL (0.7-1.3); GLUCOSE,RANDOM 92 mg/dL (74-106); MAGNESIUM 2.2 mg/dL (1.8-2.4)
[2017-04-02 08:09] LABS: INR 1.17 (0.82-1.09); PROTHROMBIN TIME (PATIENT) 13.2 SEC (9.98-11.88)
[2017-04-02] MEDS: TAMSULOSIN HCL 0.4 MG CAP.ER.24H (FP) PO SCH (09:56)
[2017-04-02] MEDS: SEVELAMER CARBONATE 800 MG TAB (FP) PO SCH ×3 (09:57→17:42)
[2017-04-02] MEDS: HEPARIN - 25,000 UNIT in SODIUM CHLORIDE 495 ML IV SCH ×2 (09:57→17:40)
[2017-04-02] MEDS: HEPARIN NA (PORCINE) 5,000 UNITS/ML 1ML VIAL IVPUSH PRN ×2 (09:59→17:41)
[2017-04-02] MEDS: AMINO ACIDS/PROTEIN HYDROLYS 30 ML LIQUID.PKT PO SCH (09:59)
[2017-04-02] MEDS: POLYETHYLENE GLYCOL 3350 119 GM BTL PO SCH (09:59)
--- NOTE | 2017-04-02 10:38 | PN ---
Progress Note (short form) - Note Progress Note: Renal follow up for ESRD on HD Pt seen and examined at the bedside no acute complaints has not voided but bladder scan only showed 100cc no hematuria Vital Signs Temperature 98.2 F 04/02/17 08:00 Pulse Rate 58 L 04/02/17 08:00 Respiratory Rate 16 04/02/17 08:00 Blood Pressure 154/72 04/02/17 08:00 O2 Sat by Pulse Oximetry (%) 95 04/01/17 20:16 Intake & Output 03/30/17 03/31/17 04/01/17 04/02/17 23:59 23:59 23:59 23:59 Intake Total 1007.6 948 910.4 384 Output Total 500 Balance 507.6 948 910.4 384 Weight 92.136 kg 93.894 kg 90.718 kg 89.902 kg NAD RRR, + systolic click Dec BS soft NT/ND No LE edema CBC, BMP 04/02/17 05:10 04/02/17 05:10 Current Medications Acetaminophen (Tylenol -) 650 mg PO Q4H PRN PRN Reason: PAIN OR FEVER Last Admin: 03/25/17 22:41 Dose: 650 mg Amino Acids (Prosource No Carb Liquid Pkt) 30 ml PO DAILY [facility] Last Admin: 04/02/17 09:59 Dose: 30 ml Atorvastatin Calcium (Lipitor -) 20 mg PO HS [facility]IS[facility] Last Admin: 04/01/17 22:05 Dose: 20 mg Docusate Sodium (Colace -) 100 mg PO TID [facility] Last Admin: 04/02/17 06:11 Dose: 100 mg Heparin Sodium (Porcine) (Heparin -) 1,000 unit IVPUSH PRN PRN PRN Reason: Heparin Last Admin: 04/02/17 09:59 Dose: 1,000 unit Heparin Sodium (Porcine) (Heparin -) 5,000 unit IVPUSH PRN PRN PRN Reason: Heparin Last Admin: 03/30/17 10:54 Dose: 5,000 unit Heparin Sodium (Porcine) 25, (000 unit/ Sodium Chloride) 500 mls @ 20 mls/hr IV TITR GRISEL; 1,000 UNIT/HR PRN Reason: Protocol Last Admin: 04/02/17 09:57 Dose: 1,710 unit/hr, 34.2 mls/hr Polyethylene Glycol (Miralax (For Daily Use) -) 17 gm PO DAILY [facility] Last Admin: 04/02/17 09:59 Dose: 17 gm Sevelamer Carbonate (Renvela -) 1,600 mg PO TIDCM [facility] Last Admin: 04/02/17 09:57 Dose: 1,600 mg Tamsulosin HCl (Flomax -) 0.4 mg PO DAILY@0830 [facility] Last Admin: 04/02/17 09:56 Dose: 0.4 mg Warfarin Sodium (Coumadin -) 5 mg PO DAILY@1800 [facility] Last Admin: 04/01/17 17:42 Dose: 5 mg 86 year old gentleman wit PMhx of ESRD on HD (MWF x 1.5 years), Hypertension, MVR on Coumadin recent urolift procedure who presented with clogged abbott catheter and hematuira. #ESRD on HD with fluid overload s/p dialysis yesterday will plan for isolated UF today with goal UF of 2.5L as tolerated continue fluid restriction, salt restriction #Gross Hematuria abbott removed bladder scan showed 100cc so no overt retention Hgb stable #MVR on Coumadin on Heparin gtt restarted on coumadin Lamonte Kapadia DO
--- NOTE | 2017-04-02 16:20 | PN ---
Physical Exam: SUBJECTIVE: Patient seen and examined OBJECTIVE: Vital Signs Period Temp Pulse Resp BP Sys/Tomas Pulse Ox Last 24 Hr 98 F-99.0 F 48-58 16-20 126-154/51-72 95 GENERAL: The patient is awake, alert, and fully oriented, in no acute distress. HEAD: Normal with no signs of trauma. EYES: PERRL, extraocular movements intact, sclera anicteric, conjunctiva clear. No ptosis. ENT: Ears normal, nares patent, oropharynx clear without exudates, moist mucous membranes. NECK: Trachea midline, full range of motion, supple. LUNGS: Breath sounds equal, diminshed bilaterally HEART: irregular, mechanical aortic valve auscultated ABDOMEN: Soft, nontender, nondistended, normoactive bowel sounds, no guarding, no rebound, no hepatosplenomegaly, no masses. EXTREMITIES: 2+ pulses, warm, well-perfused, no edema. NEUROLOGICAL: Cranial nerves II through XII grossly intact. Normal speech, gait not observed. PSYCH: Normal mood, normal affect. SKIN: Warm, dry, normal turgor, no rashes or lesions note Laboratory Results - last 24 hr 03/30/17 04/02/17 04/02/17 07:15 05:10 05:10 WBC 8.6 RBC 2.72 L Hgb 9.0 L Hct 27.5 L MCV 101.3 H MCH 33.2 MCHC 32.8 RDW 20.0 H Plt Count 219 MPV 8.6 Neutrophils % 82.0 Lymphocytes % 6.5 L D Monocytes % 8.8 Eosinophils % 2.2 Basophils % 0.5 PT with INR INR PTT (Actin FS) 43.7 H D Sodium Potassium Chloride Carbon Dioxide Anion Gap BUN Creatinine Random Glucose Calcium Magnesium Blood Type O NEGATIVE Antibody Screen Negative Crossmatch See Detail 04/02/17 04/02/17 04/02/17 05:10 05:10 15:40 WBC RBC Hgb Hct MCV MCH MCHC RDW Plt Count MPV Neutrophils % Lymphocytes % Monocytes % Eosinophils % Basophils % PT with INR 13.20 H INR 1.17 H PTT (Actin FS) 42.2 H Sodium 143 Potassium 4.1 Chloride 101 Carbon Dioxide 31 Anion Gap 11 BUN 22 H D Creatinine 7.4 H D Random Glucose 92 Calcium 8.9 Magnesium 2.2 Blood Type Antibody Screen Crossmatch Active Medications Generic Name Dose Route Start Last Admin Trade Name Freq PRN Reason Stop Dose Admin Acetaminophen 650 mg 03/19/17 18:50 03/25/17 22:41 Tylenol - PO 650 mg Q4H PRN Administration PAIN OR FEVER Amino Acids 30 ml 03/20/17 10:00 04/02/17 09:59 Prosource No Carb Liquid Pkt PO 30 ml DAILY [facility] Administration Atorvastatin Calcium 20 mg 03/19/17 22:00 04/01/17 22:05 Lipitor - PO 20 mg HS GRISEL Administration Docusate Sodium 100 mg 03/27/17 14:30 04/02/17 13:35 Colace - PO 100 mg TID GRIS[facility] Administration Heparin Sodium (Porcine) 1,000 unit 03/29/17 21:19 04/02/17 09:59 Heparin - IVPUSH 1,000 unit PRN PRN Administration Heparin Heparin Sodium (Porcine) 5,000 unit 03/29/17 21:19 03/30/17 10:54 Heparin - IVPUSH 5,000 unit PRN PRN Administration Heparin Heparin Sodium (Porcine) 25, 500 mls @ 20 mls/hr 03/29/17 21:30 04/02/17 09: 57 000 unit/ Sodium Chloride IV 1,710 unit/hr TITR GRISEL 34.2 mls/hr Protocol Administration 1,000 UNIT/HR Polyethylene Glycol 17 gm 03/27/17 14:30 04/02/17 09:59 Miralax (For Daily Use) - PO 17 gm DAILY [facility] Administration Sevelamer Carbonate 1,600 mg 03/20/17 08:00 04/02/17 13:00 Renvela - PO 1,600 mg TIDCM [facility] Administration Tamsulosin HCl 0.4 mg 03/20/17 08:30 04/02/17 09:56 Flomax - PO 0.4 mg DAILY@0830 [facility] Administration Warfarin Sodium 5 mg 03/31/17 18:00 04/01/17 17:42 Coumadin - PO 5 mg DAILY@1800 [facility] Administration ASSESSMENT/PLAN: Patient is an 81 year old male with a past medical history of hypertension, hyperlipidemia, end stage renal disease (on dialysis), CVA and an aortic valve replacement, a.fib on Coumadin, BPH s/p urolift procedure on 03/17/17 who presented to the ED with hematuria with clots and severe blood loss anemia. : Gross Hematuria s/p Urolift with severe blood loss anemia Has received 4 units of prbc since admission abbott removed, and no reported voids: bladder scan has <100 On heparin drip, with coumadin bridging Will transfuse if hmg 8 or less secondary to heart disease Hematology following Urology following Cardiology Atrial fibrillation s/p aortic valve replacement Goal INR 3-3.5 Remains on heparin drip for aortic valve, bridge to coumadin Renal: ESRD on HD Dialysis as per renal F.E.N. Fluids: PO as tolerated Electrolyes: monitor Nutrition: regular diet Prophylaxis: On Heparin gtt with coumadin bridge Disposition: requires continued inpatient care
[2017-04-02] MEDS: WARFARIN NA 5 MG TABLET (UD) PO SCH (17:41)
[2017-04-02] MEDS: ATORVASTATIN CA 20 MG TABLET (FP) PO SCH (22:17)
[2017-04-03] MEDS: HEPARIN - 25,000 UNIT in SODIUM CHLORIDE 495 ML IV SCH (01:46)
[2017-04-03] MEDS: HEPARIN NA (PORCINE) 5,000 UNITS/ML 1ML VIAL IVPUSH PRN (01:46)
[2017-04-03] MEDS: DOCUSATE SODIUM 100 MG CAPSULE (FP) PO SCH ×3 (05:28→21:08)
[2017-04-03 06:32] LABS: HEMOGLOBIN 8.9 GM/dL (11.7-16.9); MCH 33.4 pg (25.7-33.7); MCHC 32.9 g/dl (32.0-35.9); MEAN CELL VOLUME 101.7 fl (80-96); MEAN PLT VOLUME 8.6 fl (7.5-11.1); PLATELET COUNT 209 K/MM3 (134-434); RBC 2.66 M/mm3 (4.00-5.60); RDW 19.8 % (11.9-15.9); WHITE BLOOD COUNT 7.1 K/mm3 (4.0-10.0)
[2017-04-03 06:45] LABS: INR 1.24 (0.82-1.09)
[2017-04-03 08:48] LABS: ANION GAP 11 (8-16); BLOOD UREA NITROGEN 32 mg/dL (7-18); CALCIUM 9.4 mg/dL (8.5-10.1); CHLORIDE 101 mmol/L (98-107); CO2 30 mmol/L (21-32); GLUCOSE,RANDOM 82 mg/dL (74-106); MAGNESIUM 2.4 mg/dL (1.8-2.4); POTASSIUM 4.2 mmol/L (3.5-5.1); SODIUM 142 mmol/L (136-145)
[2017-04-03 08:59] LABS: CREATININE 9.4 mg/dL (0.7-1.3)
[2017-04-03] MEDS: SEVELAMER CARBONATE 800 MG TAB (FP) PO SCH ×3 (09:01→17:23)
[2017-04-03] MEDS: TAMSULOSIN HCL 0.4 MG CAP.ER.24H (FP) PO SCH (09:02)
[2017-04-03] MEDS: POLYETHYLENE GLYCOL 3350 119 GM BTL PO SCH (09:02)
[2017-04-03] MEDS: AMINO ACIDS/PROTEIN HYDROLYS 30 ML LIQUID.PKT PO SCH (09:02)
--- NOTE | 2017-04-03 15:44 | PN ---
Physical Exam: SUBJECTIVE: Patient seen and examined at the bedside. Feels well, in no acute distress. OBJECTIVE: INR 1.24, remains on heparin drip has not voided Creat 9.4 Vital Signs Period Temp Pulse Resp BP Sys/Tomas Pulse Ox Last 24 Hr 98.0 F-99 F 47-65 18-18 141-182/59-86 95-96 GENERAL: The patient is awake, alert, and fully oriented, in no acute distress. HEAD: Normal with no signs of trauma. EYES: PERRL, extraocular movements intact, sclera anicteric, conjunctiva clear. No ptosis. ENT: Ears normal, nares patent, oropharynx clear without exudates, moist mucous membranes. NECK: Trachea midline, full range of motion, supple. LUNGS: Breath sounds equal, diminshed bilaterally HEART: irregular, mechanical aortic valve auscultated ABDOMEN: Soft, nontender, nondistended, normoactive bowel sounds, no guarding, no rebound, no hepatosplenomegaly, no masses. EXTREMITIES: 2+ pulses, warm, well-perfused, no edema. NEUROLOGICAL: Cranial nerves II through XII grossly intact. Normal speech, gait not observed. PSYCH: Normal mood, normal affect. SKIN: Warm, dry, normal turgor, no rashes or lesions note Laboratory Results - last 24 hr 04/02/17 04/02/17 04/03/17 15:40 23:54 05:05 WBC 7.1 RBC 2.66 L Hgb 8.9 L Hct 27.0 L MCV 101.7 H MCH 33.4 MCHC 32.9 RDW 19.8 H Plt Count 209 MPV 8.6 PT with INR INR PTT (Actin FS) 42.2 H 44.9 H Sodium Potassium Chloride Carbon Dioxide Anion Gap BUN Creatinine Random Glucose Calcium Magnesium 04/03/17 04/03/17 04/03/17 05:05 05:05 05:45 WBC RBC Hgb Hct MCV MCH MCHC RDW Plt Count MPV PT with INR 14.00 H INR 1.24 H PTT (Actin FS) 53.9 H Sodium 142 Potassium 4.2 Chloride 101 Carbon Dioxide 30 Anion Gap 11 BUN 32 H D Creatinine 9.4 H* D Random Glucose 82 Calcium 9.4 Magnesium 2.4 Active Medications Generic Name Dose Route Start Last Admin Trade Name Freq PRN Reason Stop Dose Admin Acetaminophen 650 mg 03/19/17 18:50 03/25/17 22:41 Tylenol - PO 650 mg Q4H PRN Administration PAIN OR FEVER Amino Acids 30 ml 03/20/17 10:00 04/03/17 09:02 Prosource No Carb Liquid Pkt PO 30 ml DAILY GR[facility] Administration Atorvastatin Calcium 20 mg 03/19/17 22:00 04/02/17 22:17 Lipitor - PO 20 mg HS GRISEL Administration Docusate Sodium 100 mg 03/27/17 14:30 04/03/17 13:02 Colace - PO Not Given TID GRISEL Heparin Sodium (Porcine) 1,000 unit 03/29/17 21:19 04/03/17 01:46 Heparin - IVPUSH 1,000 unit PRN PRN Administration Heparin Heparin Sodium (Porcine) 5,000 unit 03/29/17 21:19 03/30/17 10:54 Heparin - IVPUSH 5,000 unit PRN PRN Administration Heparin Heparin Sodium (Porcine) 25, 500 mls @ 20 mls/hr 03/29/17 21:30 04/03/17 01: 46 000 unit/ Sodium Chloride IV 1,910 unit/hr TITR GR[facility] 38.2 mls/hr Protocol Administration 1,000 UNIT/HR Polyethylene Glycol 17 gm 03/27/17 14:30 04/03/17 09:02 Miralax (For Daily Use) - PO Not Given DAILY [facility] Sevelamer Carbonate 1,600 mg 03/20/17 08:00 04/03/17 12:12 Renvela - PO 1,600 mg TIDCM [facility] Administration Tamsulosin HCl 0.4 mg 03/20/17 08:30 04/03/17 09:02 Flomax - PO 0.4 mg DAILY@0830 [facility] Administration Warfarin Sodium 7.5 mg 04/03/17 18:00 Coumadin - PO DAILY@1800 [facility] ASSESSMENT/PLAN: Patient is an 81 year old male with a past medical history of hypertension, hyperlipidemia, end stage renal disease (on dialysis), CVA and an aortic valve replacement, a.fib on Coumadin, BPH s/p urolift procedure on 03/17/17 who presented to the ED with hematuria with clots and severe blood loss anemia. : Gross Hematuria s/p Urolift with severe blood loss anemia Has received 4 units of prbc since admission abbott removed, and no reported voids: bladder scan has <100 On heparin drip, with coumadin bridging Will transfuse if hmg 8 or less secondary to heart disease Hematology following Urology following Cardiology Atrial fibrillation s/p aortic valve replacement Remains on heparin drip for aortic valve, bridge to coumadin still subtherapeutic @ 1.24 continue monitoring of INR with monitoring of cbc INR needs to be 3.0 -3.5 Renal: ESRD on HD Dialysis as per renal F.E.N. Fluids: PO as tolerated Electrolyes: monitor Nutrition: regular diet Prophylaxis: On Heparin gtt with coumadin bridge Disposition: requires continued inpatient care full code. Visit type - Emergency Visit Emergency Visit: Yes ED Registration Date: 03/20/17 Care time: The patient presented to the Emergency Department on the above date and was hospitalized for further evaluation of their emergent condition. - New Patient This patient is new to me today: No - Critical Care Critical Care patient: No - Discharge Referral Referred to [facility] Med P.C.: No
[2017-04-03] MEDS: WARFARIN NA 7.5 MG TABLET (FP) PO SCH (17:22)
[2017-04-03] MEDS: ATORVASTATIN CA 20 MG TABLET (FP) PO SCH (21:07)
[2017-04-04] MEDS: DOCUSATE SODIUM 100 MG CAPSULE (FP) PO SCH ×3 (05:53→21:19)
[2017-04-04] MEDS: AMINO ACIDS/PROTEIN HYDROLYS 30 ML LIQUID.PKT PO SCH (09:21)
[2017-04-04] MEDS: TAMSULOSIN HCL 0.4 MG CAP.ER.24H (FP) PO SCH (09:21)
[2017-04-04] MEDS: SEVELAMER CARBONATE 800 MG TAB (FP) PO SCH ×3 (09:21→17:12)
[2017-04-04] MEDS: POLYETHYLENE GLYCOL 3350 119 GM BTL PO SCH (09:22)
[2017-04-04 12:16] LABS: BASO % 0.9 % (0-2.0); EOS % 4.4 % (0-4.5); HEMOGLOBIN 8.6 GM/dL (11.7-16.9); LYMPH % 10.5 % (8-40); MCH 32.5 pg (25.7-33.7); MCHC 31.8 g/dl (32.0-35.9); MEAN CELL VOLUME 102.4 fl (80-96); MEAN PLT VOLUME 8.1 fl (7.5-11.1); MONO % 11.1 % (3.8-10.2); NEUT % 73.1 % (42.8-82.8); PLATELET COUNT 207 K/MM3 (134-434); RBC 2.64 M/mm3 (4.00-5.60); RDW 20.3 % (11.9-15.9); WHITE BLOOD COUNT 5.9 K/mm3 (4.0-10.0)
[2017-04-04] MEDS ORDERED: EPOETIN ALFA 20,000 UNIT/1 ML VIAL IVPUSH ONE (12:30)
[2017-04-04 12:48] LABS: INR 1.42 (0.82-1.09); PROTHROMBIN TIME (PATIENT) 16.1 SEC (9.98-11.88)
[2017-04-04 13:20] LABS: ALBUMIN 2.6 g/dl (3.4-5.0); ANION GAP 13 (8-16); BILIRUBIN,TOTAL 0.3 mg/dL (0.2-1.0); BLOOD UREA NITROGEN 44 mg/dL (7-18); CHLORIDE 102 mmol/L (98-107); CO2 27 mmol/L (21-32); GLUCOSE,RANDOM 110 mg/dL (74-106); POTASSIUM 4.3 mmol/L (3.5-5.1); SGOT/AST 9 U/L (15-37); SGPT/ALT 15 U/L (12-78); SODIUM 142 mmol/L (136-145); TOT PROT 5.5 g/dl (6.4-8.2)
[2017-04-04 13:25] LABS: ALK PHOS 96 U/L (45-117)
[2017-04-04 13:47] LABS: CREATININE 11.8 mg/dL (0.7-1.3)
--- NOTE | 2017-04-04 14:03 | PN ---
Progress Note (short form) - Note Progress Note: Renal follow up for ESRD on HD Pt seen and examined at the bedside no complaints not making urine but no further bleeding noted no abd pain, cp, N/V/D, SOB Vital Signs Temperature 98 F 04/04/17 10:00 Pulse Rate 58 L 04/04/17 10:00 Respiratory Rate 20 04/04/17 10:00 Blood Pressure 156/62 04/04/17 10:00 O2 Sat by Pulse Oximetry (%) 97 04/04/17 09:00 Intake & Output 04/01/17 04/02/17 04/03/17 04/04/17 23:59 23:59 23:59 23:59 Intake Total 910.4 737.8 616 566 Balance 910.4 737.8 616 566 Weight 90.718 kg 89.902 kg NAD RRR, + systolic click Dec BS soft NT/ND No LE edema CBC, BMP 04/04/17 12:03 04/04/17 12:03 Current Medications Acetaminophen (Tylenol -) 650 mg PO Q4H PRN PRN Reason: PAIN OR FEVER Last Admin: 03/25/17 22:41 Dose: 650 mg Amino Acids (Prosource No Carb Liquid Pkt) 30 ml PO DAILY [facility] Last Admin: 04/04/17 09:21 Dose: 30 ml Atorvastatin Calcium (Lipitor -) 20 mg PO HS [facility] Last Admin: 04/03/17 21:07 Dose: 20 mg Docusate Sodium (Colace -) 100 mg PO TID [facility] Last Admin: 04/04/17 05:53 Dose: Not Given Heparin Sodium (Porcine) (Heparin -) 1,000 unit IVPUSH PRN PRN PRN Reason: Heparin Last Admin: 04/03/17 01:46 Dose: 1,000 unit Heparin Sodium (Porcine) (Heparin -) 5,000 unit IVPUSH PRN PRN PRN Reason: Heparin Last Admin: 03/30/17 10:54 Dose: 5,000 unit Heparin Sodium (Porcine) 25, (000 unit/ Sodium Chloride) 500 mls @ 20 mls/hr IV TITR GRISEL; 1,000 UNIT/HR PRN Reason: Protocol Last Admin: 04/03/17 01:46 Dose: 1,910 unit/hr, 38.2 mls/hr Polyethylene Glycol (Miralax (For Daily Use) -) 17 gm PO DAILY [facility] Last Admin: 04/04/17 09:22 Dose: Not Given Sevelamer Carbonate (Renvela -) 1,600 mg PO TIDCM [facility] Last Admin: 04/04/17 12:08 Dose: 1,600 mg Tamsulosin HCl (Flomax -) 0.4 mg PO DAILY@0830 [facility] Last Admin: 04/04/17 09:21 Dose: 0.4 mg Warfarin Sodium (Coumadin -) 7.5 mg PO DAILY@1800 [facility] Last Admin: 04/03/17 17:22 Dose: 7.5 mg 86 year old gentleman wit PMhx of ESRD on HD (MWF x 1.5 years), Hypertension, MVR on Coumadin recent urolift procedure who presented with clogged abbott catheter and hematuira. #ESRD on HD with fluid overload for dialysis today with goal UF ~3L as tolerated dose all meds for intermittent HD fluid restriction of 1.2L daily #Gross Hematuria with Anemia no further bleeding noted Hgb stable will continue ABILIO with HD #MVR on Coumadin on Heparin gtt restarted on coumadin Lamonte Kapadia DO
[2017-04-04] MEDS: WARFARIN NA 7.5 MG TABLET (FP) PO SCH (17:12)
--- NOTE | 2017-04-04 18:47 | PN ---
Physical Exam: SUBJECTIVE: Patient seen and examined at the bedside. In no acute distress, feels well. at bedside. OBJECTIVE: Right great toe with small ulceration [employer] Automatic consult for dialysis today Vital Signs Period Temp Pulse Resp BP Sys/Tomas Pulse Ox Last 24 Hr 98 F-98.4 F 50-58 18-20 134-166/62-84 96-97 GENERAL: The patient is awake, alert, and fully oriented, in no acute distress. HEAD: Normal with no signs of trauma. EYES: PERRL, extraocular movements intact, sclera anicteric, conjunctiva clear. No ptosis. ENT: Ears normal, nares patent, oropharynx clear without exudates, moist mucous membranes. NECK: Trachea midline, full range of motion, supple. LUNGS: Breath sounds equal, diminshed bilaterally HEART: irregular, mechanical aortic valve auscultated ABDOMEN: Soft, nontender, nondistended, normoactive bowel sounds, no guarding, no rebound, no hepatosplenomegaly, no masses. EXTREMITIES: 2+ pulses, warm, well-perfused, no edema. NEUROLOGICAL: Cranial nerves II through XII grossly intact. Normal speech, gait not observed. PSYCH: Normal mood, normal affect. SKIN: Warm, dry, normal turgor, no rashes or lesions note Laboratory Results - last 24 hr 04/04/17 04/04/17 04/04/17 12:00 12:03 12:03 WBC 5.9 RBC 2.64 L Hgb 8.6 L Hct 27.0 L MCV 102.4 H MCH 32.5 MCHC 31.8 L RDW 20.3 H Plt Count 207 MPV 8.1 Neutrophils % 73.1 Lymphocytes % 10.5 D Monocytes % 11.1 H Eosinophils % 4.4 D Basophils % 0.9 PT with INR 16.10 H INR 1.42 H PTT (Actin FS) 71.8 H D Sodium Potassium Chloride Carbon Dioxide Anion Gap BUN Creatinine Creat Clearance w eGFR Random Glucose Calcium Total Bilirubin AST ALT Alkaline Phosphatase Total Protein Albumin 04/04/17 12:03 WBC RBC Hgb Hct MCV MCH MCHC RDW Plt Count MPV Neutrophils % Lymphocytes % Monocytes % Eosinophils % Basophils % PT with INR INR PTT (Actin FS) Sodium 142 Potassium 4.3 Chloride 102 Carbon Dioxide 27 Anion Gap 13 BUN 44 H D Creatinine 11.8 H* D Creat Clearance w eGFR 4.23 Random Glucose 110 H D Calcium 9.0 Total Bilirubin 0.3 D AST 9 L D ALT 15 Alkaline Phosphatase 96 Total Protein 5.5 L Albumin 2.6 L Active Medications Generic Name Dose Route Start Last Admin Trade Name Freq PRN Reason Stop Dose Admin Acetaminophen 650 mg 03/19/17 18:50 03/25/17 22:41 Tylenol - PO 650 mg Q4H PRN Administration PAIN OR FEVER Amino Acids 30 ml 03/20/17 10:00 04/04/17 09:21 Prosource No Carb Liquid Pkt PO 30 ml DAILY [facility] Administration Atorvastatin Calcium 20 mg 03/19/17 22:00 04/03/17 21:07 Lipitor - PO 20 mg HS GRIS[facility] Administration Docusate Sodium 100 mg 03/27/17 14:30 04/04/17 15:18 Colace - PO 100 mg TID [facility] Administration Heparin Sodium (Porcine) 1,000 unit 03/29/17 21:19 04/03/17 01:46 Heparin - IVPUSH 1,000 unit PRN PRN Administration Heparin Heparin Sodium (Porcine) 5,000 unit 03/29/17 21:19 03/30/17 10:54 Heparin - IVPUSH 5,000 unit PRN PRN Administration Heparin Heparin Sodium (Porcine) 25, 500 mls @ 20 mls/hr 03/29/17 21:30 04/03/17 01: 46 000 unit/ Sodium Chloride IV 1,910 unit/hr TITR GRISEL 38.2 mls/hr Protocol Administration 1,000 UNIT/HR Polyethylene Glycol 17 gm 03/27/17 14:30 04/04/17 09:22 Miralax (For Daily Use) - PO Not Given DAILY [facility] Sevelamer Carbonate 1,600 mg 03/20/17 08:00 04/04/17 17:12 Renvela - PO 1,600 mg TIDCM [facility] Administration Tamsulosin HCl 0.4 mg 03/20/17 08:30 04/04/17 09:21 Flomax - PO 0.4 mg DAILY@0830 [facility] Administration Warfarin Sodium 7.5 mg 04/03/17 18:00 04/04/17 17:12 Coumadin - PO 7.5 mg DAILY@1800 [facility] Administration ASSESSMENT/PLAN: Patient is an 81 year old male with a past medical history of hypertension, hyperlipidemia, end stage renal disease (on dialysis), CVA and an aortic valve replacement, a.fib on Coumadin, BPH s/p urolift procedure on 03/17/17 who presented to the ED with hematuria with clots and severe blood loss anemia. : Gross Hematuria s/p Urolift with severe blood loss anemia Has received 4 units of prbc since admission abbott removed, and no reported voids: bladder scan has <200 On heparin drip, with coumadin bridging Will transfuse if hmg 8 or less secondary to heart disease Hematology following Urology following Cardiology Atrial fibrillation s/p aortic valve replacement Remains on heparin drip for aortic valve, bridge to coumadin still subtherapeutic @ 1.24 continue monitoring of INR with monitoring of cbc INR needs to be 3.0 -3.5 Renal: ESRD on HD Dialysis today F.E.N. Fluids: PO as tolerated Electrolyes: monitor Nutrition: regular diet Prophylaxis: On Heparin gtt with coumadin bridge Disposition: requires continued inpatient care
[2017-04-04] MEDS: ATORVASTATIN CA 20 MG TABLET (FP) PO SCH (21:19)
[2017-04-04] MEDS: HEPARIN - 25,000 UNIT in SODIUM CHLORIDE 495 ML IV SCH (21:20)
[2017-04-05] MEDS: DOCUSATE SODIUM 100 MG CAPSULE (FP) PO SCH ×3 (06:25→21:05)
[2017-04-05] MEDS: TAMSULOSIN HCL 0.4 MG CAP.ER.24H (FP) PO SCH (08:10)
[2017-04-05] MEDS: SEVELAMER CARBONATE 800 MG TAB (FP) PO SCH ×3 (08:10→18:21)
[2017-04-05 09:02] LABS: BASO % 1.1 % (0-2.0); HEMATOCRIT 27.5 % (35.4-49); HEMOGLOBIN 8.9 GM/dL (11.7-16.9); LYMPH % 11.7 % (8-40); MCH 32.8 pg (25.7-33.7); MCHC 32.3 g/dl (32.0-35.9); MEAN CELL VOLUME 101.3 fl (80-96); MEAN PLT VOLUME 7.7 fl (7.5-11.1); MONO % 12.9 % (3.8-10.2); NEUT % 70.3 % (42.8-82.8); PLATELET COUNT 206 K/MM3 (134-434); RBC 2.72 M/mm3 (4.00-5.60); RDW 20.3 % (11.9-15.9); WHITE BLOOD COUNT 5.3 K/mm3 (4.0-10.0)
[2017-04-05] MEDS: AMINO ACIDS/PROTEIN HYDROLYS 30 ML LIQUID.PKT PO SCH (09:02)
[2017-04-05] MEDS: POLYETHYLENE GLYCOL 3350 119 GM BTL PO SCH (09:02)
[2017-04-05 09:15] LABS: INR 1.59 (0.82-1.09)
[2017-04-05] MEDS ORDERED: WARFARIN NA 10 MG TABLET (FP) PO SCH (09:26)
[2017-04-05 09:29] LABS: ALBUMIN 2.5 g/dl (3.4-5.0); ALK PHOS 91 U/L (45-117); ANION GAP 9 (8-16); BILIRUBIN,TOTAL 0.3 mg/dL (0.2-1.0); BLOOD UREA NITROGEN 20 mg/dL (7-18); CALCIUM 8.8 mg/dL (8.5-10.1); CHLORIDE 101 mmol/L (98-107); CO2 31 mmol/L (21-32); CREATININE 7.1 mg/dL (0.7-1.3); GLUCOSE,RANDOM 112 mg/dL (74-106); POTASSIUM 3.5 mmol/L (3.5-5.1); SGOT/AST 11 U/L (15-37); SGPT/ALT 12 U/L (12-78); SODIUM 141 mmol/L (136-145)
--- NOTE | 2017-04-05 11:20 | PN ---
Progress Note (short form) - Note Progress Note: Kwan removed 48 hours pt comfortable min urine output no blood per meatus Bladder non palpable May d/c from urologic perspective will manage residual urine cont to fully coumadinize Problem List - Problems (1) Hematuria Code(s): R31.9 - HEMATURIA, UNSPECIFIED (2) Gross hematuria Code(s): R31.0 - GROSS HEMATURIA
--- NOTE | 2017-04-05 11:30 | CONSULT ---
Consult - text type - Consultation Consultation Note: Patient seen in bed vss Tmax 98.0. Complains of painful area tip of big toe for a few weeks. Was admitted after a complication after an in office procedure. Non diabetic according to him and a previous smoker. 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 dp&pt 0.5/4 b/l, +early gangrene tip of right fourth toe, previous amputation of 2nd toe right. -drainage, +dry, +demarcating tip of big toe right, +mild tenderness PVD OM? Dry Gangarene tip of toe Consult vascular Dr. Montano. Xray right foot. Wet to dry dressing to eschar right big toe. Will follow. Made need revascularization.
[2017-04-05] MEDS: HEPARIN - 25,000 UNIT in SODIUM CHLORIDE 495 ML IV SCH (12:00)
--- NOTE | 2017-04-05 13:28 | PN ---
Progress Note (short form) - Note Progress Note: Renal follow up for ESRD on HD Pt seen and examined at the bedside awake and alert no acute complaints no sob, chest pain, abd pain no hematuria s/p dialysis yesterday Vital Signs Temperature 98 F 04/05/17 10:00 Pulse Rate 50 L 04/05/17 10:00 Respiratory Rate 18 04/05/17 10:00 Blood Pressure 140/70 04/05/17 10:00 O2 Sat by Pulse Oximetry (%) 97 04/05/17 09:00 Intake & Output 04/02/17 04/03/17 04/04/17 04/05/17 23:59 23:59 23:59 23:59 Intake Total 737.8 616 1214 648 Output Total 0 Balance 737.8 616 1214 648 Weight 89.902 kg 89.267 kg NAD RRR, + systolic click Dec BS soft NT/ND No LE edema CBC, BMP 04/05/17 08:45 04/05/17 08:45 Current Medications Acetaminophen (Tylenol -) 650 mg PO Q4H PRN PRN Reason: PAIN OR FEVER Last Admin: 03/25/17 22:41 Dose: 650 mg Amino Acids (Prosource No Carb Liquid Pkt) 30 ml PO DAILY [facility] Last Admin: 04/05/17 09:02 Dose: 30 ml Atorvastatin Calcium (Lipitor -) 20 mg PO HS [facility] Last Admin: 04/04/17 21:19 Dose: 20 mg Docusate Sodium (Colace -) 100 mg PO TID [facility] Last Admin: 04/05/17 06:25 Dose: Not Given Heparin Sodium (Porcine) (Heparin -) 1,000 unit IVPUSH PRN PRN PRN Reason: Heparin Last Admin: 04/03/17 01:46 Dose: 1,000 unit Heparin Sodium (Porcine) (Heparin -) 5,000 unit IVPUSH PRN PRN PRN Reason: Heparin Last Admin: 03/30/17 10:54 Dose: 5,000 unit Heparin Sodium (Porcine) 25, (000 unit/ Sodium Chloride) 500 mls @ 20 mls/hr IV TITR [facility]; 1,000 UNIT/HR PRN Reason: Protocol Last Admin: 04/05/17 12:00 Dose: 1,810 unit/hr, 36.2 mls/hr Polyethylene Glycol (Miralax (For Daily Use) -) 17 gm PO DAILY [facility] Last Admin: 04/05/17 09:02 Dose: Not Given Sevelamer Carbonate (Renvela -) 1,600 mg PO TIDCM [facility] Last Admin: 04/05/17 12:03 Dose: 1,600 mg Tamsulosin HCl (Flomax -) 0.4 mg PO DAILY@0830 [facility] Last Admin: 04/05/17 08:10 Dose: 0.4 mg Warfarin Sodium (Coumadin -) 10 mg PO DAILY@1800 [facility] 86 year old gentleman wit PMhx of ESRD on HD (MWF x 1.5 years), Hypertension, MVR on Coumadin recent urolift procedure who presented with clogged abbott catheter and hematuira. #ESRD on HD with fluid overload next dialysis planned for tomorrow no acute indication for treatment today #Gross Hematuria with Anemia no further bleeding noted Hgb stable will continue ABILIO with HD #MVR on Coumadin on Heparin gtt restarted on Coumadin awaiting theraputic INR Lamonte Kapadia DO
--- NOTE | 2017-04-05 17:44 | PN ---
Physical Exam: SUBJECTIVE: Patient seen and examined at the bedside. Feels well, sitting in chair. No shortness of breath. and patient want patient to go home. OBJECTIVE: CTA with runoff scheuled for tonight. However, received a call from patient's primary RN that CTA with runoff was cancelled after patient told CTA tech that he had a severe reaction from contrast dye used on him for a similar test. This stated allergy has not been listed on our records to date, but will add now. Patient also reported to have 11 beats of non sustained vtach this morning, remained asymptomatic, vitals stable. Vital Signs Period Temp Pulse Resp BP Sys/Tomas Pulse Ox Last 24 Hr 98 F-100 F 42-61 16-20 119-176/55-84 97-100 GENERAL: The patient is awake, alert, and fully oriented, in no acute distress. HEAD: Normal with no signs of trauma. EYES: PERRL, extraocular movements intact, sclera anicteric, conjunctiva clear. No ptosis. ENT: Ears normal, nares patent, oropharynx clear without exudates, moist mucous membranes. NECK: Trachea midline, full range of motion, supple. LUNGS: Breath sounds equal, diminshed bilaterally HEART: irregular, mechanical aortic valve auscultated ABDOMEN: Soft, nontender, nondistended, normoactive bowel sounds, no guarding, no rebound, no hepatosplenomegaly, no masses. EXTREMITIES: right great toe tip with dark discolored tip, patient to get CTA with runoff tonight NEUROLOGICAL: Cranial nerves II through XII grossly intact. Normal speech, gait not observed. PSYCH: Normal mood, normal affect. SKIN: Warm, dry, normal turgor, no rashes or lesions Laboratory Results - last 24 hr 04/05/17 04/05/17 04/05/17 08:45 08:45 08:45 WBC 5.3 RBC 2.72 L Hgb 8.9 L Hct 27.5 L MCV 101.3 H MCH 32.8 MCHC 32.3 RDW 20.3 H Plt Count 206 MPV 7.7 Neutrophils % 70.3 Lymphocytes % 11.7 Monocytes % 12.9 H Eosinophils % 4.0 Basophils % 1.1 PT with INR 18.00 H INR 1.59 H PTT (Actin FS) Sodium 141 Potassium 3.5 Chloride 101 Carbon Dioxide 31 Anion Gap 9 BUN 20 H D Creatinine 7.1 H D Creat Clearance w eGFR 7.45 Random Glucose 112 H Calcium 8.8 Magnesium Total Bilirubin 0.3 AST 11 L D ALT 12 Alkaline Phosphatase 91 Total Protein 6.0 L Albumin 2.5 L 04/05/17 04/05/17 08:45 10:10 WBC RBC Hgb Hct MCV MCH MCHC RDW Plt Count MPV Neutrophils % Lymphocytes % Monocytes % Eosinophils % Basophils % PT with INR INR PTT (Actin FS) 84.4 H Sodium Potassium Chloride Carbon Dioxide Anion Gap BUN Creatinine Creat Clearance w eGFR Random Glucose Calcium Magnesium 2.0 Total Bilirubin AST ALT Alkaline Phosphatase Total Protein Albumin Active Medications Generic Name Dose Route Start Last Admin Trade Name Freq PRN Reason Stop Dose Admin Acetaminophen 650 mg 03/19/17 18:50 03/25/17 22:41 Tylenol - PO 650 mg Q4H PRN Administration PAIN OR FEVER Amino Acids 30 ml 03/20/17 10:00 04/05/17 09:02 Prosource No Carb Liquid Pkt PO 30 ml DAILY [facility] Administration Atorvastatin Calcium 20 mg 03/19/17 22:00 04/04/17 21:19 Lipitor - PO 20 mg HS [facility] Administration Docusate Sodium 100 mg 03/27/17 14:30 04/05/17 13:54 Colace - PO Not Given TID [facility] Heparin Sodium (Porcine) 1,000 unit 03/29/17 21:19 04/03/17 01:46 Heparin - IVPUSH 1,000 unit PRN PRN Administration Heparin Heparin Sodium (Porcine) 5,000 unit 03/29/17 21:19 03/30/17 10:54 Heparin - IVPUSH 5,000 unit PRN PRN Administration Heparin Heparin Sodium (Porcine) 25, 500 mls @ 20 mls/hr 03/29/17 21:30 04/05/17 12: 00 000 unit/ Sodium Chloride IV 1,810 unit/hr TITR [facility] 36.2 mls/hr Protocol Administration 1,000 UNIT/HR Polyethylene Glycol 17 gm 03/27/17 14:30 04/05/17 09:02 Miralax (For Daily Use) - PO Not Given DAILY [facility] Sevelamer Carbonate 1,600 mg 03/20/17 08:00 04/05/17 12:03 Renvela - PO 1,600 mg TIDCM [facility] Administration Tamsulosin HCl 0.4 mg 03/20/17 08:30 04/05/17 08:10 Flomax - PO 0.4 mg DAILY@0830 [facility] Administration Warfarin Sodium 10 mg 04/05/17 09:26 Coumadin - PO DAILY@1800 [facility] ASSESSMENT/PLAN: Patient is an 81 year old male with a past medical history of hypertension, hyperlipidemia, end stage renal disease (on dialysis), CVA and an aortic valve replacement, a.fib on Coumadin, BPH s/p urolift procedure on 03/17/17 who presented to the ED with hematuria with clots and severe blood loss anemia. : Gross Hematuria s/p Urolift with severe blood loss anemia, now resolved Has received 4 units of prbc since admission abbott removed, and no reported voids: bladder scan has no residuals, pt anuric Seen by urologist, notes reviewed Cardiology Atrial fibrillation s/p aortic valve replacement Remains on heparin drip for aortic valve, bridge to coumadin still subtherapeutic @ 1.59, goal is (3-3.5), coumadin increased to 10mg daily INR in a.m. Renal: ESRD on HD Dialysis tomorrow Vascular Right great toe wound/gangrene Patient for a diagnositc CTA with runoff but test cancelled due to reported allergy Patient would need to be premedicated once CTA rescheduled Vascular following F.E.N. Fluids: PO as tolerated Electrolyes: monitor Nutrition: regular diet Prophylaxis: On Heparin gtt with coumadin bridge Disposition: requires continued inpatient care Visit type - Emergency Visit Emergency Visit: Yes ED Registration Date: 03/20/17 Care time: The patient presented to the Emergency Department on the above date and was hospitalized for further evaluation of their emergent condition. - New Patient This patient is new to me today: No - Critical Care Critical Care patient: No - Discharge Referral Referred to [facility] No
[2017-04-05] MEDS ORDERED: WARFARIN NA 10 MG TABLET (FP) PO ONE (17:59)
--- NOTE | 2017-04-05 18:26 | PN ---
Progress Note (short form) - Note Progress Note: Vascular Surgery Pt seen and examined. Called to evaluate right great toe. Pt claims he has discoloration of his toe for over two months. It started when he was admitted at [facility]. He said it started out as a blister and then dried up. He was then discharged to rehab, where he had a infection of his second toe on that foot. That resulted in a amputation of that toe last month. On physical exam he has a palpable DP pulse. He has gangrene of the tip of the great toe. Pt has a 35 year 1/2 pack a day history of smoking. I spoke to the family at bedside and explained to them that the only way to know if this will heal is to get some imaging. I explained to them that we should get a CTA to look at the circulation getting into the foot. The agree, and this way we can get a diagnosis. Will order CTA Isak Montano DO
[2017-04-05] MEDS: ATORVASTATIN CA 20 MG TABLET (FP) PO SCH (21:05)
[2017-04-06] MEDS: DOCUSATE SODIUM 100 MG CAPSULE (FP) PO SCH ×3 (06:13→21:33)
[2017-04-06] MEDS: SEVELAMER CARBONATE 800 MG TAB (FP) PO SCH ×3 (08:12→17:30)
[2017-04-06] MEDS: TAMSULOSIN HCL 0.4 MG CAP.ER.24H (FP) PO SCH (08:12)
[2017-04-06] MEDS: AMINO ACIDS/PROTEIN HYDROLYS 30 ML LIQUID.PKT PO SCH (09:18)
[2017-04-06] MEDS: POLYETHYLENE GLYCOL 3350 119 GM BTL PO SCH (09:24)
[2017-04-06] MEDS ORDERED: EPOETIN ALFA 20,000 UNIT/1 ML VIAL IVPUSH ONE (09:49)
--- NOTE | 2017-04-06 11:35 | PN ---
Progress Note (short form) - Note Progress Note: Vascular Surgery Pt seen and examined. Getting HD currently. Pt has palpable pulses. Tip of right great toe with dry gangrene -- present for over 2 months. Pt could not get CTA this am -- because he was short of breath and needed stat HD. Pt is also allergic to contrast -- will need to be premedicated for the test. We will speak to pt's , because they both expressed yesterday that they do not want any surgical intervention. It that is still the case, then doing the CTA might not be needed. Medical team to speak to . Isak Montano DO
[2017-04-06 12:28] LABS: BASO % 1.2 % (0-2.0); EOS % 4.6 % (0-4.5); HEMATOCRIT 28.4 % (35.4-49); HEMOGLOBIN 9.1 GM/dL (11.7-16.9); LYMPH % 11.7 % (8-40); MCH 32.5 pg (25.7-33.7); MCHC 32.1 g/dl (32.0-35.9); MEAN CELL VOLUME 101.2 fl (80-96); MEAN PLT VOLUME 8.3 fl (7.5-11.1); MONO % 11.3 % (3.8-10.2); NEUT % 71.2 % (42.8-82.8); PLATELET COUNT 221 K/MM3 (134-434); RDW 19.9 % (11.9-15.9); WHITE BLOOD COUNT 4.9 K/mm3 (4.0-10.0)
--- NOTE | 2017-04-06 12:40 | PN ---
Progress Note (short form) - Note Progress Note: Renal follow up for ESRD on HD Pt seen and examined during dialysis pt BP Stable goal UF is 3.5L pt has sob this am no CP, N/V/D Vital Signs Temperature 98.3 F 04/06/17 07:39 Pulse Rate 55 L 04/06/17 11:55 Respiratory Rate 18 04/06/17 11:55 Blood Pressure 142/65 04/06/17 11:55 O2 Sat by Pulse Oximetry (%) 98 04/06/17 07:43 Intake & Output 04/03/17 04/04/17 04/05/17 04/06/17 23:59 23:59 23:59 23:59 Intake Total 616 756 768 456 Output Total 800 Balance 616 756 768 -344 Weight 89.267 kg 91.535 kg NAD RRR, + systolic click Dec BS soft NT/ND No LE edema CBC, BMP 04/06/17 11:30 Current Medications Acetaminophen (Tylenol -) 650 mg PO Q4H PRN PRN Reason: PAIN OR FEVER Last Admin: 03/25/17 22:41 Dose: 650 mg Amino Acids (Prosource No Carb Liquid Pkt) 30 ml PO DAILY [facility] Last Admin: 04/06/17 09:18 Dose: 30 ml Atorvastatin Calcium (Lipitor -) 20 mg PO HS [facility] Last Admin: 04/05/17 21:05 Dose: 20 mg Docusate Sodium (Colace -) 100 mg PO TID [facility] Last Admin: 04/06/17 06:13 Dose: Not Given Heparin Sodium (Porcine) (Heparin -) 1,000 unit IVPUSH PRN PRN PRN Reason: Heparin Last Admin: 04/03/17 01:46 Dose: 1,000 unit Heparin Sodium (Porcine) (Heparin -) 5,000 unit IVPUSH PRN PRN PRN Reason: Heparin Last Admin: 03/30/17 10:54 Dose: 5,000 unit Heparin Sodium (Porcine) 25, (000 unit/ Sodium Chloride) 500 mls @ 20 mls/hr IV TITR [facility]; 1,000 UNIT/HR PRN Reason: Protocol Last Admin: 04/05/17 12:00 Dose: 1,860 unit/hr, 37.2 mls/hr Polyethylene Glycol (Miralax (For Daily Use) -) 17 gm PO DAILY [facility] Last Admin: 04/06/17 09:24 Dose: 17 gm Sevelamer Carbonate (Renvela -) 1,600 mg PO TIDCM [facility] Last Admin: 04/06/17 11:34 Dose: 1,600 mg Tamsulosin HCl (Flomax -) 0.4 mg PO DAILY@0830 [facility] Last Admin: 04/06/17 08:12 Dose: 0.4 mg Warfarin Sodium (Coumadin -) 10 mg PO DAILY@1800 [facility] 86 year old gentleman wit PMhx of ESRD on HD (MWF x 1.5 years), Hypertension, MVR on Coumadin recent urolift procedure who presented with clogged abbott catheter and hematuira. #ESRD on HD with fluid overload pt tolerating dialysis with 3.5L UF will access tomorrow for additional UF #Gross Hematuria with Anemia no further bleeding noted Hgb stable will continue ABILIO with HD #MVR on Coumadin on Heparin gtt restarted on Coumadin awaiting theraputic INR #LE wound/foot ischemia diagnostic work up per vascular Sx Lamonte Kapadia DO
--- NOTE | 2017-04-06 12:50 | PN ---
Progress Note (short form) - Note Progress Note: Vascular Surgery Pt seen and examined spoke to son about his dad. He understands what is happening. Pt recently had toe amp done at [facility]. Son wants us to make sure the right great toe doesnt get worse. He agrees to right lower ext CO2 angiogram. Will try for shelia if INR is stable Cardiology clearance , -- can the pt be off heparin drip for the angio, because of his mechanical valve. Isak farfan DO
[2017-04-06 13:02] LABS: ACTIVATED PTT 126.2 SECONDS (26.9-34.4); INR 1.95 (0.82-1.09)
--- NOTE | 2017-04-06 13:19 | PN ---
Physical Exam: SUBJECTIVE: Patient seen and examined, he states the changes to his toe have been there for a year with associated tenderness. He does ambulate on his own in the home OBJECTIVE: Vital Signs Period Temp Pulse Resp BP Sys/Tomas Pulse Ox Last 24 Hr 98.2 F-98.6 F 53-99 17-20 137-162/65-82 96-98 PE Neuro: alert, awake, oriented however periods of confusion Pulm: basilar rales +nc CV: s1 s2 irregular rhythm + clicking Abd: s nt nd +bs Ext: R great toe discoloration + tenderness + DP pules, r foot is warm Laboratory Results - last 24 hr 04/06/17 04/06/17 11:30 11:30 WBC 4.9 RBC 2.80 L Hgb 9.1 L Hct 28.4 L MCV 101.2 H MCH 32.5 MCHC 32.1 RDW 19.9 H Plt Count 221 MPV 8.3 Neutrophils % 71.2 Lymphocytes % 11.7 Monocytes % 11.3 H Eosinophils % 4.6 H Basophils % 1.2 PT with INR 22.00 H INR 1.95 H PTT (Actin FS) 126.2 H D Active Medications Generic Name Dose Route Start Last Admin Trade Name Freq PRN Reason Stop Dose Admin Acetaminophen 650 mg 03/19/17 18:50 03/25/17 22:41 Tylenol - PO 650 mg Q4H PRN Administration PAIN OR FEVER Amino Acids 30 ml 03/20/17 10:00 04/06/17 09:18 Prosource No Carb Liquid Pkt PO 30 ml DAILY [facility] Administration Atorvastatin Calcium 20 mg 03/19/17 22:00 04/05/17 21:05 Lipitor - PO 20 mg HS [facility] Administration Docusate Sodium 100 mg 03/27/17 14:30 04/06/17 06:13 Colace - PO Not Given TID [facility] Heparin Sodium (Porcine) 1,000 unit 03/29/17 21:19 04/03/17 01:46 Heparin - IVPUSH 1,000 unit PRN PRN Administration Heparin Heparin Sodium (Porcine) 5,000 unit 03/29/17 21:19 03/30/17 10:54 Heparin - IVPUSH 5,000 unit PRN PRN Administration Heparin Heparin Sodium (Porcine) 25, 500 mls @ 20 mls/hr 03/29/17 21:30 04/05/17 12: 00 000 unit/ Sodium Chloride IV 1,860 unit/hr TITR [facility] 37.2 mls/hr Protocol Administration 1,000 UNIT/HR Polyethylene Glycol 17 gm 03/27/17 14:30 04/06/17 09:24 Miralax (For Daily Use) - PO 17 gm DAILY [facility] Administration Sevelamer Carbonate 1,600 mg 03/20/17 08:00 04/06/17 11:34 Renvela - PO 1,600 mg TIDCM [facility] Administration Tamsulosin HCl 0.4 mg 03/20/17 08:30 04/06/17 08:12 Flomax - PO 0.4 mg DAILY@0830 [facility] Administration Warfarin Sodium 10 mg 04/06/17 18:00 Coumadin - PO DAILY@1800 [facility] Assessment: 81 year old male with pmhx of HTN, HLD, ESRD (on HD MWF), CVA, aortic mechanical valve replacement, A.fib on Coumadin, BPH s/p urolift procedure on 03/17/17 admitted with hematuria who presented to the ED with hematuria with clots and severe blood loss anemia. Plan: 1. Hematuria s/p Urolift with severe blood loss anemia - Abbott replaced yesterday, tube draining clear - D/w urology, pt does make some urine, can keep abbott and follow as outpt 2. A fib, s/p aortic mechanical valve replacement - Heparin gtt with coumadin - Will hold coumadin tonight for angiogram tomorrow - Cardiology called back for heparin gtt titration instructions, Dr. Dunne to see 3. R great toe dry gangrene, previous toe amputation at [facility] - Angiogram tomorrow eval R toe - Hold coumadin tonight - NPO after midnight - D/w vascular 4. ESRD on HD - HD today Visit type - Emergency Visit Emergency Visit: Yes ED Registration Date: 03/20/17 Care time: The patient presented to the Emergency Department on the above date and was hospitalized for further evaluation of their emergent condition. - New Patient This patient is new to me today: Yes Date on this admission: 04/06/17 - Critical Care Critical Care patient: No
[2017-04-06 13:45] LABS: ALBUMIN 2.8 g/dl (3.4-5.0); ALK PHOS 105 U/L (45-117); ANION GAP 14 (8-16); BILIRUBIN,TOTAL 0.3 mg/dL (0.2-1.0); BLOOD UREA NITROGEN 29 mg/dL (7-18); CHLORIDE 101 mmol/L (98-107); CO2 26 mmol/L (21-32); GLUCOSE,RANDOM 114 mg/dL (74-106); MAGNESIUM 2.1 mg/dL (1.8-2.4); POTASSIUM 3.8 mmol/L (3.5-5.1); SGOT/AST 11 U/L (15-37); SGPT/ALT 13 U/L (12-78); SODIUM 141 mmol/L (136-145)
[2017-04-06 13:49] LABS: CREATININE 9.5 mg/dL (0.7-1.3)
--- NOTE | 2017-04-06 17:25 | PN ---
Progress Note, Physician Chief Complaint: Mechanical valve History of Present Illness: This is an 81 year old male with a pmhx of ESRD on HD, CVA, afib on coumadin, reports history of mechanical AVR and mitral valve repair at [facility] in 2000, and bph s/p recent prostate procedure and presenting to ER with hematuria. The patient developed right great toe dry gangrene and is for an angiogram tomorrow. - Current Medication List Current Medications: Active Medications Acetaminophen (Tylenol -) 650 mg PO Q4H PRN PRN Reason: PAIN OR FEVER Last Admin: 03/25/17 22:41 Dose: 650 mg Amino Acids (Prosource No Carb Liquid Pkt) 30 ml PO DAILY [facility] Last Admin: 04/06/17 09:18 Dose: 30 ml Atorvastatin Calcium (Lipitor -) 20 mg PO HS [facility] Last Admin: 04/05/17 21:05 Dose: 20 mg Docusate Sodium (Colace -) 100 mg PO TID [facility] Last Admin: 04/06/17 15:27 Dose: Not Given Heparin Sodium (Porcine) (Heparin -) 1,000 unit IVPUSH PRN PRN PRN Reason: Heparin Last Admin: 04/03/17 01:46 Dose: 1,000 unit Heparin Sodium (Porcine) (Heparin -) 5,000 unit IVPUSH PRN PRN PRN Reason: Heparin Last Admin: 03/30/17 10:54 Dose: 5,000 unit Heparin Sodium (Porcine) 25, (000 unit/ Sodium Chloride) 500 mls @ 20 mls/hr IV TITR [facility]; 1,000 UNIT/HR PRN Reason: Protocol Last Titration: 04/06/17 13:51 Dose: 1,710 unit/hr, 34.2 mls/hr Polyethylene Glycol (Miralax (For Daily Use) -) 17 gm PO DAILY [facility] Last Admin: 04/06/17 09:24 Dose: 17 gm Sevelamer Carbonate (Renvela -) 1,600 mg PO TIDCM [facility] Last Admin: 04/06/17 11:34 Dose: 1,600 mg Tamsulosin HCl (Flomax -) 0.4 mg PO DAILY@0830 [facility] Last Admin: 04/06/17 08:12 Dose: 0.4 mg Warfarin Sodium (Coumadin -) 10 mg PO DAILY@1800 [facility] - Objective Vital Signs: Vital Signs Temperature 97.9 F 04/06/17 15:26 Pulse Rate 50 L 04/06/17 15:26 Respiratory Rate 20 04/06/17 15:26 Blood Pressure 160/72 04/06/17 15:26 O2 Sat by Pulse Oximetry (%) 98 04/06/17 07:43 Constitutional: Yes: No Distress HENT: Yes: WNL Neck: Yes: WNL Cardiovascular: Yes: Pulse Irregular (NL S1, mechanical S2) Respiratory: Yes: CTA Bilaterally Gastrointestinal: Yes: Soft Extremities: Yes: Amputation (Toe amputations and gangrene as described Venous stasis changes), Other (To) Neurological: Yes: Alert, Oriented (Grossly non focal) Labs: CBC, BMP 04/06/17 11:30 04/06/17 11:30 INR, PTT INR 1.95 (0.82-1.09) H 04/06/17 11:30 Assessment/Plan Angiogram planned Hold Coumadin for angiogram Given mechanical AV, he requires bridging with IV heparin (PTT ~ 80) After the procedure, continue heparin and restart coumadin to an INR of ~ 2.5 If necessary, heparin can be held for the procedure but should be restart post procedure There are no cardiac contraindications to the planned procedure.
[2017-04-06] MEDS ORDERED: WARFARIN NA 10 MG TABLET (FP) PO SCH (18:00)
[2017-04-06] MEDS: ATORVASTATIN CA 20 MG TABLET (FP) PO SCH (21:39)
[2017-04-06] MEDS: HEPARIN - 25,000 UNIT in SODIUM CHLORIDE 495 ML IV SCH (21:56)
[2017-04-07] MEDS: DOCUSATE SODIUM 100 MG CAPSULE (FP) PO SCH ×3 (05:21→21:49)
[2017-04-07 06:39] LABS: INR 1.96 (0.82-1.09); PROTHROMBIN TIME (PATIENT) 22.1 SEC (9.98-11.88)
[2017-04-07 07:03] LABS: ANION GAP 6 (8-16); BLOOD UREA NITROGEN 17 mg/dL (7-18); CALCIUM 8.3 mg/dL (8.5-10.1); CHLORIDE 101 mmol/L (98-107); CO2 33 mmol/L (21-32); CREATININE 6.4 mg/dL (0.7-1.3); GLUCOSE,RANDOM 80 mg/dL (74-106); POTASSIUM 3.4 mmol/L (3.5-5.1); SODIUM 140 mmol/L (136-145)
[2017-04-07] MEDS: SEVELAMER CARBONATE 800 MG TAB (FP) PO SCH ×3 (08:17→17:33)
[2017-04-07] MEDS: TAMSULOSIN HCL 0.4 MG CAP.ER.24H (FP) PO SCH (08:17)
[2017-04-07] MEDS: POLYETHYLENE GLYCOL 3350 119 GM BTL PO SCH (10:46)
[2017-04-07] MEDS: AMINO ACIDS/PROTEIN HYDROLYS 30 ML LIQUID.PKT PO SCH (10:46)
--- NOTE | 2017-04-07 11:01 | PN ---
Physical Exam: SUBJECTIVE: Patient seen and examined. He has no complaints, resp improved following HD yesterday. He would like to get OOB to walk today OBJECTIVE: Vital Signs Period Temp Pulse Resp BP Sys/Tomas Pulse Ox Last 24 Hr 97.4 F-98.3 F 43-58 18-20 124-167/57-78 100 PE Neuro: alert, awake, oriented Pulm: basilar rhonchi +nc CV: s1 s2 irregular rhythm + clicking Abd: s nt nd +bs Ext: R great toe discoloration + tenderness + DP pules, r foot is warm Laboratory Results - last 24 hr 04/06/17 04/07/17 04/07/17 19:40 06:05 06:05 WBC RBC Hgb Hct MCV MCH MCHC RDW Plt Count MPV Neutrophils % Lymphocytes % Monocytes % Eosinophils % Basophils % PT with INR 22.10 H INR 1.96 H PTT (Actin FS) 67.8 H D Sodium 140 Potassium 3.4 L Chloride 101 Carbon Dioxide 33 H D Anion Gap 6 L BUN 17 D Creatinine 6.4 H D Creat Clearance w eGFR Random Glucose 80 D Calcium 8.3 L Magnesium Total Bilirubin AST ALT Alkaline Phosphatase Total Protein Albumin 04/07/17 06:05 WBC RBC Hgb Hct MCV MCH MCHC RDW Plt Count MPV Neutrophils % Lymphocytes % Monocytes % Eosinophils % Basophils % PT with INR INR PTT (Actin FS) 87.4 H Sodium Potassium Chloride Carbon Dioxide Anion Gap BUN Creatinine Creat Clearance w eGFR Random Glucose Calcium Magnesium Total Bilirubin AST ALT Alkaline Phosphatase Total Protein Albumin Active Medications Generic Name Dose Route Start Last Admin Trade Name Freq PRN Reason Stop Dose Admin Acetaminophen 650 mg 03/19/17 18:50 03/25/17 22:41 Tylenol - PO 650 mg Q4H PRN Administration PAIN OR FEVER Amino Acids 30 ml 03/20/17 10:00 04/07/17 10:46 Prosource No Carb Liquid Pkt PO 30 ml DAILY [facility] Administration Atorvastatin Calcium 20 mg 03/19/17 22:00 04/06/17 21:39 Lipitor - PO 20 mg HS [facility] Administration Docusate Sodium 100 mg 03/27/17 14:30 04/07/17 05:21 Colace - PO Not Given TID [facility] Heparin Sodium (Porcine) 1,000 unit 03/29/17 21:19 04/03/17 01:46 Heparin - IVPUSH 1,000 unit PRN PRN Administration Heparin Heparin Sodium (Porcine) 5,000 unit 03/29/17 21:19 03/30/17 10:54 Heparin - IVPUSH 5,000 unit PRN PRN Administration Heparin Heparin Sodium (Porcine) 25, 500 mls @ 20 mls/hr 03/29/17 21:30 04/06/17 21: 56 000 unit/ Sodium Chloride IV 1,660 unit/hr TITR [facility] 33.2 mls/hr Protocol Administration 1,000 UNIT/HR Polyethylene Glycol 17 gm 03/27/17 14:30 04/07/17 10:46 Miralax (For Daily Use) - PO 17 gm DAILY [facility] Administration Sevelamer Carbonate 1,600 mg 03/20/17 08:00 04/07/17 08:17 Renvela - PO 1,600 mg TIDCM [facility] Administration Tamsulosin HCl 0.4 mg 03/20/17 08:30 04/07/17 08:17 Flomax - PO 0.4 mg DAILY@0830 [facility] Administration Warfarin Sodium 10 mg 04/06/17 18:00 04/07/17 09:02 Coumadin - PO Not Given DAILY@1800 [facility] Assessment: 81 year old male with pmhx of HTN, HLD, ESRD (on HD MWF), CVA, aortic mechanical valve replacement, A.fib on Coumadin, BPH s/p urolift procedure on 03/17/17 admitted with hematuria who presented to the ED with hematuria with clots and severe blood loss anemia. Plan: 1. Hematuria s/p Urolift with severe blood loss anemia - Abbott bag with cloudy urine - D/w urology, pt does make some urine, can keep abbott and follow as outpt 2. A fib, s/p aortic mechanical valve replacement - Hold Coumadin tonight - Maintain heparin gtt. goal PTT ~ 80 - Once angio completed resume coumadin INR goal 2.5-3.5 3. R great toe dry gangrene, previous toe amputation at [facility] - D/t INR angiogram rescheduled for tomorrow - Hold coumadin tonight - NPO after midnight - D/w vascular 4. ESRD on HD MWF - HD yesterday - Renvela TID - Renal service following Visit type - Emergency Visit Emergency Visit: Yes ED Registration Date: 03/20/17 Care time: The patient presented to the Emergency Department on the above date and was hospitalized for further evaluation of their emergent condition. - New Patient This patient is new to me today: No - Critical Care Critical Care patient: No
--- NOTE | 2017-04-07 13:02 | CONSULT ---
Consult - text type - Consultation Consultation Note: Patient seen in bed vss Tmax 98.1. Pain is resolving tip of toe. Was admitted after a complication after an in office procedure. Non diabetic according to him and a previous smoker. 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 dp&pt 0.5/4 b/l, +early gangrene tip of right fourth toe, previous amputation of 2nd toe right. -drainage, -dry, +demarcating tip of big toe right, -weeping , +improved mild tenderness, wbc=4.9 PVD OM? Dry Gangarene tip of toe Read and appreciated vascular note. Patient is scheduled for angiogram. Will follow till dc. Continue heel pad right.
--- NOTE | 2017-04-07 17:35 | PN ---
Progress Note (short form) - Note Progress Note: Renal follow up for ESRD on HD Pt seen and examined at the bedside awake and alert no acute complaints abbott reinserted today INR too high to have angiogram today Vital Signs Temperature 99.4 F 04/07/17 15:00 Pulse Rate 58 L 04/07/17 15:00 Respiratory Rate 18 04/07/17 15:00 Blood Pressure 156/67 04/07/17 15:00 O2 Sat by Pulse Oximetry (%) 100 04/07/17 12:58 Intake & Output 04/04/17 04/05/17 04/06/17 04/07/17 23:59 23:59 23:59 23:59 Intake Total 472 834 1468 948.4 Output Total 1999 Balance 756 768 -44 948.4 Weight 89.267 kg 91.535 kg 88.677 kg NAD RRR, + systolic click Dec BS soft NT/ND No LE edema CBC, BMP 04/06/17 11:30 04/07/17 06:05 Current Medications Acetaminophen (Tylenol -) 650 mg PO Q4H PRN PRN Reason: PAIN OR FEVER Last Admin: 03/25/17 22:41 Dose: 650 mg Amino Acids (Prosource No Carb Liquid Pkt) 30 ml PO DAILY [facility] Last Admin: 04/07/17 10:46 Dose: 30 ml Atorvastatin Calcium (Lipitor -) 20 mg PO HS [facility] Last Admin: 04/06/17 21:39 Dose: 20 mg Docusate Sodium (Colace -) 100 mg PO TID [facility] Last Admin: 04/07/17 15:05 Dose: Not Given Heparin Sodium (Porcine) (Heparin -) 1,000 unit IVPUSH PRN PRN PRN Reason: Heparin Last Admin: 04/03/17 01:46 Dose: 1,000 unit Heparin Sodium (Porcine) (Heparin -) 5,000 unit IVPUSH PRN PRN PRN Reason: Heparin Last Admin: 03/30/17 10:54 Dose: 5,000 unit Heparin Sodium (Porcine) 25, (000 unit/ Sodium Chloride) 500 mls @ 20 mls/hr IV TITR [facility]; 1,000 UNIT/HR PRN Reason: Protocol Last Admin: 04/06/17 21:56 Dose: 1,660 unit/hr, 33.2 mls/hr Polyethylene Glycol (Miralax (For Daily Use) -) 17 gm PO DAILY [facility] Last Admin: 04/07/17 10:46 Dose: 17 gm Sevelamer Carbonate (Renvela -) 1,600 mg PO TIDCM [facility] Last Admin: 04/07/17 17:33 Dose: 1,600 mg Tamsulosin HCl (Flomax -) 0.4 mg PO DAILY@0830 [facility] Last Admin: 04/07/17 08:17 Dose: 0.4 mg Warfarin Sodium (Coumadin -) 10 mg PO DAILY@1800 [facility] Last Admin: 04/07/17 09:02 Dose: Not Given 86 year old gentleman wit PMhx of ESRD on HD (MWF x 1.5 years), Hypertension, MVR on Coumadin recent urolift procedure who presented with clogged abbott catheter and hematuira. #ESRD on HD with fluid overload no indication for dialysis today next treatment in the AM Renal Diet #Gross Hematuria with Anemia abbott reinserted, no overt bleeding noted #MVR on Coumadin on Heparin gtt restarted on Coumadin awaiting theraputic INR #LE wound/foot ischemia diagnostic work up per vascular Sx Lamonte Kapadia DO
[2017-04-07] MEDS ORDERED: PT OWN MED DRAWER 7, Y5N ONE (21:51)
[2017-04-07] MEDS: ATORVASTATIN CA 20 MG TABLET (FP) PO SCH (21:52)
[2017-04-07] MEDS: HEPARIN - 25,000 UNIT in SODIUM CHLORIDE 495 ML IV SCH (21:55)
[2017-04-08] MEDS: DOCUSATE SODIUM 100 MG CAPSULE (FP) PO SCH ×3 (05:59→21:05)
[2017-04-08] MEDS ORDERED: hydrALAZINE HCL 10 MG TABLET PO ONE (07:15)
[2017-04-08] MEDS: SEVELAMER CARBONATE 800 MG TAB (FP) PO SCH ×4 (08:27→18:11)
[2017-04-08] MEDS: TAMSULOSIN HCL 0.4 MG CAP.ER.24H (FP) PO SCH (08:28)
[2017-04-08 08:59] LABS: HEMOGLOBIN 9.3 GM/dL (11.7-16.9); MCH 33.6 pg (25.7-33.7); MCHC 33.2 g/dl (32.0-35.9); MEAN CELL VOLUME 101.2 fl (80-96); MEAN PLT VOLUME 8.2 fl (7.5-11.1); PLATELET COUNT 222 K/MM3 (134-434); RBC 2.77 M/mm3 (4.00-5.60); RDW 19.8 % (11.9-15.9); WHITE BLOOD COUNT 5.8 K/mm3 (4.0-10.0)
[2017-04-08] MEDS ORDERED: EPOETIN ALFA 20,000 UNIT/1 ML VIAL IVPUSH ONE (09:00)
[2017-04-08 09:15] LABS: INR 1.64 (0.82-1.09); PROTHROMBIN TIME (PATIENT) 18.5 SEC (9.98-11.88)
[2017-04-08 09:17] LABS: ACTIVATED PTT 66.7 SECONDS (26.9-34.4)
[2017-04-08 09:30] LABS: ANION GAP 9 (8-16); BLOOD UREA NITROGEN 28 mg/dL (7-18); CALCIUM 8.6 mg/dL (8.5-10.1); CHLORIDE 102 mmol/L (98-107); CO2 28 mmol/L (21-32); GLUCOSE,RANDOM 81 mg/dL (74-106); PHOSPHOROUS 3.9 mg/dL (2.5-4.9); POTASSIUM 3.7 mmol/L (3.5-5.1); SODIUM 139 mmol/L (136-145)
[2017-04-08] MEDS: POLYETHYLENE GLYCOL 3350 119 GM BTL PO SCH (10:28)
[2017-04-08] MEDS: AMINO ACIDS/PROTEIN HYDROLYS 30 ML LIQUID.PKT PO SCH (10:29)
[2017-04-08 10:57] LABS: CREATININE 8.5 mg/dL (0.7-1.3)
--- NOTE | 2017-04-08 12:30 | PN ---
Progress Note (short form) - Note Progress Note: Renal follow up for ESRD on HD Pt seen and examined during dialysis no acute complaints denies any sob, chest pain, abd pain BP stable, goal UF is 3.5L for angiogram later today Vital Signs Temperature 98.4 F 04/08/17 07:20 Pulse Rate 48 L 04/08/17 09:55 Respiratory Rate 18 04/08/17 09:55 Blood Pressure 167/70 04/08/17 09:55 O2 Sat by Pulse Oximetry (%) 99 04/07/17 21:00 Intake & Output 04/05/17 04/06/17 04/07/17 04/08/17 23:59 23:59 23:59 23:59 Intake Total 768 1956 1428.4 624.4 Output Total 1999 50 Balance 768 -44 1378.4 624.4 Weight 89.267 kg 91.535 kg 88.677 kg 89.902 kg NAD RRR, + systolic click Dec BS soft NT/ND No LE edema CBC, BMP 04/08/17 07:30 04/08/17 07:30 Current Medications Acetaminophen (Tylenol -) 650 mg PO Q4H PRN PRN Reason: PAIN OR FEVER Last Admin: 03/25/17 22:41 Dose: 650 mg Amino Acids (Prosource No Carb Liquid Pkt) 30 ml PO DAILY [facility] Last Admin: 04/08/17 10:29 Dose: 30 ml Atorvastatin Calcium (Lipitor -) 20 mg PO HS [facility] Last Admin: 04/07/17 21:52 Dose: 20 mg Docusate Sodium (Colace -) 100 mg PO TID [facility] Last Admin: 04/08/17 05:59 Dose: Not Given Heparin Sodium (Porcine) (Heparin -) 1,000 unit IVPUSH PRN PRN PRN Reason: Heparin Last Admin: 04/03/17 01:46 Dose: 1,000 unit Heparin Sodium (Porcine) (Heparin -) 5,000 unit IVPUSH PRN PRN PRN Reason: Heparin Last Admin: 03/30/17 10:54 Dose: 5,000 unit Heparin Sodium (Porcine) 25, (000 unit/ Sodium Chloride) 500 mls @ 20 mls/hr IV TITR [facility]; 1,000 UNIT/HR PRN Reason: Protocol Last Admin: 04/07/17 21:55 Dose: 1,660 unit/hr, 33.2 mls/hr Polyethylene Glycol (Miralax (For Daily Use) -) 17 gm PO DAILY [facility] Last Admin: 04/08/17 10:28 Dose: Not Given Sevelamer Carbonate (Renvela -) 1,600 mg PO TIDCM [facility] Last Admin: 04/08/17 08:27 Dose: Not Given Tamsulosin HCl (Flomax -) 0.4 mg PO DAILY@0830 [facility] Last Admin: 04/08/17 08:28 Dose: Not Given Warfarin Sodium (Coumadin -) 10 mg PO DAILY@1800 [facility] Last Admin: 04/07/17 09:02 Dose: Not Given 86 year old gentleman wit PMhx of ESRD on HD (MWF x 1.5 years), Hypertension, MVR on Coumadin recent urolift procedure who presented with clogged abbott catheter and hematuira. #ESRD on HD with fluid overload pt is tolerating dialysis well today UF goal is 3.5L will plan for additional UF tomorrow continue salt and fluid restriction #Gross Hematuria with Anemia abbott reinserted, no overt bleeding noted Hgb stable #MVR on Coumadin on Heparin gtt restarted on Coumadin awaiting theraputic INR #LE wound/foot ischemia for angiogram today Lamonte Kapadia DO
--- NOTE | 2017-04-08 12:52 | PN ---
Physical Exam: SUBJECTIVE: Patient seen and examined. Tolerating HD at bedside, has come discomfort to R great toe. OBJECTIVE: Vital Signs Period Temp Pulse Resp BP Sys/Tomas Pulse Ox Last 24 Hr 98.1 F-99.4 F 46-68 18-20 133-199/60-88 99-100 PE Neuro: alert, awake, oriented Pulm: scattered rhonchi, no wheezing no tachypnea CV: s1 s2 irregular rhythm + clicking Abd: s nt nd +bs : abbott, dark yellow urine Ext: R great toe discoloration + tenderness Laboratory Results - last 24 hr 04/07/17 04/08/17 04/08/17 13:45 07:30 07:30 WBC RBC Hgb Hct MCV MCH MCHC RDW Plt Count MPV PT with INR 18.50 H INR 1.64 H PTT (Actin FS) 54.6 H D 66.7 H Sodium 139 Potassium 3.7 Chloride 102 Carbon Dioxide 28 Anion Gap 9 BUN 28 H D Creatinine 8.5 H* D Random Glucose 81 Calcium 8.6 Phosphorus 3.9 04/08/17 07:30 WBC 5.8 RBC 2.77 L Hgb 9.3 L Hct 28.0 L MCV 101.2 H MCH 33.6 MCHC 33.2 RDW 19.8 H Plt Count 222 MPV 8.2 PT with INR INR PTT (Actin FS) Sodium Potassium Chloride Carbon Dioxide Anion Gap BUN Creatinine Random Glucose Calcium Phosphorus Active Medications Generic Name Dose Route Start Last Admin Trade Name Freq PRN Reason Stop Dose Admin Acetaminophen 650 mg 03/19/17 18:50 03/25/17 22:41 Tylenol - PO 650 mg Q4H PRN Administration PAIN OR FEVER Amino Acids 30 ml 03/20/17 10:00 04/08/17 10:29 Prosource No Carb Liquid Pkt PO 30 ml DAILY [facility] Administration Atorvastatin Calcium 20 mg 03/19/17 22:00 04/07/17 21:52 Lipitor - PO 20 mg HS [facility] Administration Docusate Sodium 100 mg 03/27/17 14:30 04/08/17 05:59 Colace - PO Not Given TID [facility] Heparin Sodium (Porcine) 1,000 unit 03/29/17 21:19 04/03/17 01:46 Heparin - IVPUSH 1,000 unit PRN PRN Administration Heparin Heparin Sodium (Porcine) 5,000 unit 03/29/17 21:19 03/30/17 10:54 Heparin - IVPUSH 5,000 unit PRN PRN Administration Heparin Heparin Sodium (Porcine) 25, 500 mls @ 20 mls/hr 03/29/17 21:30 04/07/17 21: 55 000 unit/ Sodium Chloride IV 1,660 unit/hr TITR [facility] 33.2 mls/hr Protocol Administration 1,000 UNIT/HR Polyethylene Glycol 17 gm 03/27/17 14:30 04/08/17 10:28 Miralax (For Daily Use) - PO Not Given DAILY [facility] Sevelamer Carbonate 1,600 mg 03/20/17 08:00 04/08/17 08:27 Renvela - PO Not Given TIDCM [facility] Tamsulosin HCl 0.4 mg 03/20/17 08:30 04/08/17 08:28 Flomax - PO Not Given DAILY@0830 [facility] Warfarin Sodium 10 mg 04/06/17 18:00 04/07/17 09:02 Coumadin - PO Not Given DAILY@1800 [facility] Assessment: 81 year old male with pmhx of HTN, HLD, ESRD (on HD MWF), CVA, aortic mechanical valve replacement, A.fib on Coumadin, BPH s/p urolift procedure on 03/17/17 admitted with hematuria who presented to the ED with hematuria with clots and severe blood loss anemia. Plan: 1. Hematuria s/p Urolift with severe blood loss anemia - Resolved - Maintain abbott, follow up as outpt 2. A fib, s/p aortic mechanical valve replacement - Restart Coumadin tonight per vascular - Resume heparin gtt after angio 3. R great toe dry gangrene, previous toe amputation at [facility] - Angiogram today - Resume heparin after procedure - Vascular seeing 4. ESRD on HD MWF - HD today - Renvela TID - Renal service following Visit type - Emergency Visit Emergency Visit: Yes ED Registration Date: 03/20/17 Care time: The patient presented to the Emergency Department on the above date and was hospitalized for further evaluation of their emergent condition. - New Patient This patient is new to me today: No - Critical Care Critical Care patient: No
[2017-04-08] MEDS ORDERED: LIDOCAINE HCL 1%, 10 MG/ML (20ML VIAL) ONE (14:32)
[2017-04-08] MEDS ORDERED: HEPARIN NA (PORCINE) 5,000 UNITS/ML 1ML VIAL ONE (14:32)
[2017-04-08] MEDS ORDERED: ceFAZolin SODIUM 1 GM VIAL ONE (15:20)
[2017-04-08] MEDS ORDERED: MIDAZOLAM HCL 2 MG/2 ML SINGLE DOSE VIAL ONE (15:20)
[2017-04-08] MEDS ORDERED: ceFAZolin SODIUM 1 GM VIAL IVPB ONE (15:25)
[2017-04-08] MEDS ORDERED: LIDOCAINE HCL 1%, 10 MG/ML (50 mL VIAL) IJ ONE (15:33)
--- NOTE | 2017-04-08 17:10 | OP ---
Operative Note - Note: Operative Date: 04/08/17 Pre-Operative Diagnosis: right great toe gangrene Operation: Aortogram, RLE CO2 angiogram Post-Operative Diagnosis: Same as Pre-op Surgeon: Isak Montano Anesthesia: Fractional Estimated Blood Loss (mls): 50 Operative Report Dictated: Yes
--- NOTE | 2017-04-08 17:13 | PN ---
Progress Note (short form) - Note Progress Note: Vascular Surgery S/P CO2 angiogram. Main runoff to foot is PT. AT is diseased and reconstitutes. Pt has palpable PT and DP pulse. Would treat conservatively. 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 Bacitracin to toe. Would not amputate the toe, since there is a chance the wound will not heal. Heparin ---> coumadin for mechanical valve. Isak Montano DO
[2017-04-08] MEDS ORDERED: HEPARIN INFUSION - 25,000 UNITS/500 ML INFUS.BAG IVPB SCH (17:15)
[2017-04-08] MEDS ORDERED: HEPARIN NA (PORCINE) 5,000 UNITS/ML 1ML VIAL IVPUSH PRN ×2 (17:15→17:24)
[2017-04-08] MEDS ORDERED: ACETAMINOPHEN 325 MG TABLET (FP) PO PRN (17:26)
[2017-04-08] MEDS ORDERED: HEPARIN INFUSION - 25,000 UNITS/500 ML INFUS.BAG IVPB ONE (17:28)
[2017-04-08] MEDS: WARFARIN NA 10 MG TABLET (FP) PO SCH (18:11)
[2017-04-08] MEDS: ATORVASTATIN CA 20 MG TABLET (FP) PO SCH (21:05)
[2017-04-09] MEDS: HEPARIN NA (PORCINE) 5,000 UNITS/ML 1ML VIAL IVPUSH PRN ×2 (04:58→21:56)
[2017-04-09] MEDS: HEPARIN INFUSION - 25,000 UNITS/500 ML INFUS.BAG IVPB SCH ×3 (04:59→21:56)
[2017-04-09] MEDS: DOCUSATE SODIUM 100 MG CAPSULE (FP) PO SCH ×3 (05:57→22:01)
[2017-04-09] MEDS: SEVELAMER CARBONATE 800 MG TAB (FP) PO SCH ×3 (09:21→17:27)
[2017-04-09] MEDS: TAMSULOSIN HCL 0.4 MG CAP.ER.24H (FP) PO SCH (09:21)
[2017-04-09] MEDS: AMINO ACIDS/PROTEIN HYDROLYS 30 ML LIQUID.PKT PO SCH (09:21)
[2017-04-09] MEDS: POLYETHYLENE GLYCOL 3350 119 GM BTL PO SCH (09:22)
[2017-04-09 12:28] LABS: ANION GAP 9 (8-16); BLOOD UREA NITROGEN 21 mg/dL (7-18); CALCIUM 8.7 mg/dL (8.5-10.1); CHLORIDE 100 mmol/L (98-107); CO2 30 mmol/L (21-32); GLUCOSE,RANDOM 134 mg/dL (74-106); POTASSIUM 3.8 mmol/L (3.5-5.1); SODIUM 139 mmol/L (136-145)
[2017-04-09 12:29] LABS: CREATININE 7.2 mg/dL (0.7-1.3)
--- NOTE | 2017-04-09 16:50 | PN ---
Physical Exam: SUBJECTIVE: Patient seen and examined. He is tolerating HD, he denies RLE pain. OBJECTIVE: Vital Signs Period Temp Pulse Resp BP Sys/Tomas Pulse Ox Last 24 Hr 97.5 F-98.9 F 47-65 13-18 115-192/50-82 98-100 PE Neuro: alert, awake, oriented Pulm: clear anteriorly CV: s1 s2 irregular rhythm + clicking Abd: s nt nd +bs : abbott Ext: R great toe discoloration - unchanged Laboratory Results - last 24 hr 04/09/17 04/09/17 04/09/17 04:00 10:54 10:54 PTT (Actin FS) 45.3 H D 41.4 H Sodium 139 Potassium 3.8 Chloride 100 Carbon Dioxide 30 Anion Gap 9 BUN 21 H D Creatinine 7.2 H Random Glucose 134 H D Calcium 8.7 Active Medications Generic Name Dose Route Start Last Admin Trade Name Freq PRN Reason Stop Dose Admin Acetaminophen 650 mg 04/08/17 17:26 Tylenol - PO Q4H PRN PAIN OR FEVER Amino Acids 30 ml 04/09/17 10:00 04/09/17 09:21 Prosource No Carb Liquid Pkt PO 30 ml DAILY [facility] Administration Atorvastatin Calcium 20 mg 04/08/17 22:00 04/08/17 21:05 Lipitor - PO 20 mg HS [facility] Administration Docusate Sodium 100 mg 04/08/17 22:00 04/09/17 05:57 Colace - PO Not Given TID [facility] Heparin Sodium (Porcine) 1,000 unit 04/08/17 17:15 04/09/17 04:58 Heparin - IVPUSH 1,000 unit PRN PRN Administration Heparin Heparin Sodium (Porcine) 5,000 unit 04/08/17 17:24 Heparin - IVPUSH PRN PRN Heparin Heparin Sodium/Dextrose 25,000 units in 500 mls @ 20 mls/hr 04/09/17 05:00 04:59 Heparin Infusion - IVPB 1,100 units/hr TITR [facility] 22 mls/hr Protocol Administration 1,000 UNITS/HR Polyethylene Glycol 17 gm 04/09/17 10:00 04/09/17 09:22 Miralax (For Daily Use) - PO 17 grams DAILY [facility] Administration Sevelamer Carbonate 1,600 mg 04/08/17 17:30 04/09/17 12:29 Renvela - PO 1,600 mg TIDCM [facility] Administration Tamsulosin HCl 0.4 mg 04/09/17 08:30 04/09/17 09:21 Flomax - PO 0.4 mg DAILY@0830 [facility] Administration Warfarin Sodium 10 mg 04/08/17 18:00 04/08/17 18:11 Coumadin - PO 10 mg DAILY@1800 [facility] Administration Assessment: 81 year old male with pmhx of HTN, HLD, ESRD (on HD MWF), CVA, aortic mechanical valve replacement, A.fib on Coumadin, BPH s/p urolift procedure on 03/17/17 admitted with hematuria who presented to the ED with hematuria with clots and severe blood loss anemia. Plan: 1. Hematuria s/p Urolift with severe blood loss anemia - Resolved - Maintain abbott, follow up as outpt 2. A fib, s/p aortic mechanical valve replacement - Resume coumadin 10mg hs with heparin gtt 3. R great toe dry gangrene, previous toe amputation at [facility] - co2 angiogram shows main runoff is PT, AT is diseased and reconstitutes; microvascular dz - Treat conservatively - Bacitracin to toe 4. ESRD on HD MWF - HD today - Renvela TID - Renal service following Dispo: - Home with VNS? pending therapeutic INR Visit type - Emergency Visit Emergency Visit: Yes ED Registration Date: 03/20/17 Care time: The patient presented to the Emergency Department on the above date and was hospitalized for further evaluation of their emergent condition. - New Patient This patient is new to me today: No - Critical Care Critical Care patient: No
[2017-04-09] MEDS: WARFARIN NA 10 MG TABLET (FP) PO SCH (17:27)
--- NOTE | 2017-04-09 17:54 | PN ---
Progress Note (short form) - Note Progress Note: covering dr cortez ESRD on HD (MWF x 1.5 years), Hypertension, MVR on Coumadin s/p urolift procedure s/p clogged abbott catheter and hematuira. Active Medications Acetaminophen (Tylenol -) 650 mg PO Q4H PRN PRN Reason: PAIN OR FEVER Amino Acids (Prosource No Carb Liquid Pkt) 30 ml PO DAILY [facility] Last Admin: 04/09/17 09:21 Dose: 30 ml Atorvastatin Calcium (Lipitor -) 20 mg PO HS [facility] Last Admin: 04/08/17 21:05 Dose: 20 mg Docusate Sodium (Colace -) 100 mg PO TID [facility] Last Admin: 04/09/17 14:27 Dose: 100 mg Heparin Sodium (Porcine) (Heparin -) 1,000 unit IVPUSH PRN PRN PRN Reason: Heparin Last Admin: 04/09/17 04:58 Dose: 1,000 unit Heparin Sodium (Porcine) (Heparin -) 5,000 unit IVPUSH PRN PRN PRN Reason: Heparin Heparin Sodium/Dextrose (Heparin Infusion -) 25,000 units in 500 mls @ 20 mls/ hr IVPB TITR [facility]; 1,000 UNITS/HR PRN Reason: Protocol Last Admin: 04/09/17 04:59 Dose: 1,100 units/hr, 22 mls/hr Polyethylene Glycol (Miralax (For Daily Use) -) 17 gm PO DAILY [facility] Last Admin: 04/09/17 09:22 Dose: 17 grams Sevelamer Carbonate (Renvela -) 1,600 mg PO TIDCM [facility] Last Admin: 04/09/17 17:27 Dose: 1,600 mg Tamsulosin HCl (Flomax -) 0.4 mg PO DAILY@0830 [facility] Last Admin: 04/09/17 09:21 Dose: 0.4 mg Warfarin Sodium (Coumadin -) 10 mg PO DAILY@1800 [facility] Last Admin: 04/09/17 17:27 Dose: 10 mg Last Vital Signs Temp Pulse Resp BP Pulse Ox 97.5 F L 61 18 148/76 100 04/09/17 13:53 04/09/17 14:30 04/09/17 14:30 04/09/17 14:30 04/09/17 09:00 lungs clear heart reg abd soft nontender ext no edema CBC, BMP 04/08/17 07:30 04/09/17 10:54 IMP- esrd gross hematuria on warfarin- held still with dark red urine in urine bag hemodynamically stable Plan- maintenance HD tiw
[2017-04-09] MEDS: ATORVASTATIN CA 20 MG TABLET (FP) PO SCH (21:56)
[2017-04-10] MEDS: HEPARIN INFUSION - 25,000 UNITS/500 ML INFUS.BAG IVPB SCH (05:29)
[2017-04-10] MEDS: DOCUSATE SODIUM 100 MG CAPSULE (FP) PO SCH ×3 (05:30→21:26)
[2017-04-10 08:00] LABS: HEMATOCRIT 28.4 % (35.4-49); HEMOGLOBIN 9.4 GM/dL (11.7-16.9); MCH 33.7 pg (25.7-33.7); MCHC 33.3 g/dl (32.0-35.9); MEAN CELL VOLUME 101.3 fl (80-96); MEAN PLT VOLUME 8.1 fl (7.5-11.1); PLATELET COUNT 225 K/MM3 (134-434); RDW 19.9 % (11.9-15.9); WHITE BLOOD COUNT 6.4 K/mm3 (4.0-10.0)
[2017-04-10 08:21] LABS: INR 2.17 (0.82-1.09); PROTHROMBIN TIME (PATIENT) 24.5 SEC (9.98-11.88)
[2017-04-10 08:36] LABS: MAGNESIUM 1.9 mg/dL (1.8-2.4); PHOSPHOROUS 3.8 mg/dL (2.5-4.9)
[2017-04-10] MEDS: TAMSULOSIN HCL 0.4 MG CAP.ER.24H (FP) PO SCH (09:38)
[2017-04-10] MEDS: SEVELAMER CARBONATE 800 MG TAB (FP) PO SCH ×3 (09:38→17:16)
[2017-04-10] MEDS: AMINO ACIDS/PROTEIN HYDROLYS 30 ML LIQUID.PKT PO SCH (10:16)
[2017-04-10] MEDS: POLYETHYLENE GLYCOL 3350 119 GM BTL PO SCH (10:17)
--- NOTE | 2017-04-10 10:47 | PN ---
Physical Exam: SUBJECTIVE: Patient seen and examined. He is oob to chair, he would like to ambulate. OBJECTIVE: Vital Signs Period Temp Pulse Resp BP Sys/Tomas Pulse Ox Last 24 Hr 97.5 F-99.1 F 52-61 16-18 120-152/50-90 94 PE Neuro: alert, awake, oriented Pulm: basilar crackles CV: s1 s2 irregular rhythm + clicking Abd: s nt nd +bs : abbott Ext: R great toe discoloration - unchanged Laboratory Results - last 24 hr 04/10/17 04/10/17 04/10/17 02:30 06:00 06:48 WBC 6.4 RBC 2.80 L Hgb 9.4 L Hct 28.4 L MCV 101.3 H MCH 33.7 MCHC 33.3 RDW 19.9 H Plt Count 225 MPV 8.1 PT with INR 24.50 H INR 2.17 H D PTT (Actin FS) 59.9 H Sodium Potassium Chloride Carbon Dioxide Anion Gap BUN Creatinine Random Glucose Calcium Phosphorus Magnesium 04/10/17 06:48 WBC RBC Hgb Hct MCV MCH MCHC RDW Plt Count MPV PT with INR INR PTT (Actin FS) Sodium Potassium Chloride Carbon Dioxide Anion Gap BUN Creatinine Random Glucose Calcium Phosphorus 3.8 Magnesium 1.9 Active Medications Generic Name Dose Route Start Last Admin Trade Name Freq PRN Reason Stop Dose Admin Acetaminophen 650 mg 04/08/17 17:26 Tylenol - PO Q4H PRN PAIN OR FEVER Amino Acids 30 ml 04/09/17 10:00 04/10/17 10:16 Prosource No Carb Liquid Pkt PO 30 ml DAILY [facility] Administration Atorvastatin Calcium 20 mg 04/08/17 22:00 04/09/17 21:56 Lipitor - PO 20 mg HS [facility] Administration Docusate Sodium 100 mg 04/08/17 22:00 04/10/17 05:30 Colace - PO Not Given TID [facility] Heparin Sodium (Porcine) 1,000 unit 04/08/17 17:15 04/09/17 21:56 Heparin - IVPUSH 1,000 unit PRN PRN Administration Heparin Heparin Sodium (Porcine) 5,000 unit 04/08/17 17:24 Heparin - IVPUSH PRN PRN Heparin Heparin Sodium/Dextrose 25,000 units in 500 mls @ 20 mls/hr 04/09/17 05:00 05:29 Heparin Infusion - IVPB 1,300 units/hr TITR [facility] 26 mls/hr Protocol Administration 1,000 UNITS/HR Polyethylene Glycol 17 gm 04/09/17 10:00 04/10/17 10:17 Miralax (For Daily Use) - PO Not Given DAILY [facility] Sevelamer Carbonate 1,600 mg 04/08/17 17:30 04/10/17 09:38 Renvela - PO 1,600 mg TIDCM [facility] Administration Tamsulosin HCl 0.4 mg 04/09/17 08:30 04/10/17 09:38 Flomax - PO 0.4 mg DAILY@0830 [facility] Administration Warfarin Sodium 10 mg 04/08/17 18:00 04/09/17 17:27 Coumadin - PO 10 mg DAILY@1800 [facility] Administration Assessment: 81 year old male with pmhx of HTN, HLD, ESRD (on HD MWF), CVA, aortic mechanical valve replacement, A.fib on Coumadin, BPH s/p urolift procedure on 03/17/17 admitted with hematuria who presented to the ED with hematuria with clots and severe blood loss anemia. Plan: 1. Hematuria s/p Urolift with severe blood loss anemia - Urine in tube is clearing - Trial DC abbott today 2. A fib, s/p aortic mechanical valve replacement - Coumadin 10mg hs with heparin gtt - Goal INR 2.5-3.5 3. R great toe dry gangrene, previous toe amputation at [facility] - Co2 angiogram shows main runoff is PT, AT is diseased and reconstitutes; microvascular dz - Treat conservatively - Bacitracin to toe 4. ESRD on HD MWF - HD tomorrow - Renvela TID - Renal service following Dispo: - Home, pt refusing VNS - DC pending therapeutic INR Visit type - Emergency Visit Emergency Visit: Yes ED Registration Date: 03/20/17 Care time: The patient presented to the Emergency Department on the above date and was hospitalized for further evaluation of their emergent condition. - New Patient This patient is new to me today: No - Critical Care Critical Care patient: No
[2017-04-10] MEDS: WARFARIN NA 10 MG TABLET (FP) PO SCH (17:16)
[2017-04-10] MEDS ORDERED: PT OWN MED DRAWER 7, Y5N ONE (20:39)
--- NOTE | 2017-04-10 20:46 | PN ---
Progress Note (short form) - Note Progress Note: covering dr cortez ESRD on HD (MWF x 1.5 years), Hypertension, MVR on Coumadin s/p urolift procedure s/p clogged abbott catheter and hematuira. Active Medications Acetaminophen (Tylenol -) 650 mg PO Q4H PRN PRN Reason: PAIN OR FEVER Amino Acids (Prosource No Carb Liquid Pkt) 30 ml PO DAILY [facility] Last Admin: 04/10/17 10:16 Dose: 30 ml Atorvastatin Calcium (Lipitor -) 20 mg PO HS [facility] Last Admin: 04/09/17 21:56 Dose: 20 mg Docusate Sodium (Colace -) 100 mg PO TID [facility] Last Admin: 04/10/17 14:15 Dose: 100 mg Heparin Sodium (Porcine) (Heparin -) 1,000 unit IVPUSH PRN PRN PRN Reason: Heparin Last Admin: 04/09/17 21:56 Dose: 1,000 unit Heparin Sodium (Porcine) (Heparin -) 5,000 unit IVPUSH PRN PRN PRN Reason: Heparin Heparin Sodium/Dextrose (Heparin Infusion -) 25,000 units in 500 mls @ 20 mls/ hr IVPB TITR [facility]; 1,000 UNITS/HR PRN Reason: Protocol Last Admin: 04/10/17 05:29 Dose: 1,300 units/hr, 26 mls/hr Polyethylene Glycol (Miralax (For Daily Use) -) 17 gm PO DAILY [facility] Last Admin: 04/10/17 10:17 Dose: Not Given Sevelamer Carbonate (Renvela -) 1,600 mg PO TIDCM [facility] Last Admin: 04/10/17 17:16 Dose: 1,600 mg Tamsulosin HCl (Flomax -) 0.4 mg PO DAILY@0830 [facility] Last Admin: 04/10/17 09:38 Dose: 0.4 mg Warfarin Sodium (Coumadin -) 10 mg PO DAILY@1800 [facility] Last Admin: 04/10/17 17:16 Dose: 10 mg Last Vital Signs Temp Pulse Resp BP Pulse Ox 98.8 F 55 L 18 142/70 94 L 04/10/17 17:00 04/10/17 17:00 04/10/17 17:00 04/10/17 17:00 04/10/17 09:00 lungs clear heart reg abd soft nontender ext no edema CBC, BMP 03/04/18 06:00 04/09/17 10:54 IMP- esrd gross hematuria on warfarin- held still with dark red urine in urine bag hemodynamically stable afib right great toe gangrene htn Plan- maintenance HD tiw
[2017-04-10] MEDS: ATORVASTATIN CA 20 MG TABLET (FP) PO SCH (21:12)
[2017-04-11] MEDS: HEPARIN INFUSION - 25,000 UNITS/500 ML INFUS.BAG IVPB SCH (07:49)
[2017-04-11] MEDS: DOCUSATE SODIUM 100 MG CAPSULE (FP) PO SCH ×2 (07:50→13:38)
[2017-04-11 08:19] LABS: HEMATOCRIT 27.5 % (35.4-49); HEMOGLOBIN 9.2 GM/dL (11.7-16.9); MCH 33.7 pg (25.7-33.7); MCHC 33.3 g/dl (32.0-35.9); MEAN CELL VOLUME 101.1 fl (80-96); MEAN PLT VOLUME 8.2 fl (7.5-11.1); PLATELET COUNT 217 K/MM3 (134-434); RBC 2.71 M/mm3 (4.00-5.60); WHITE BLOOD COUNT 5.3 K/mm3 (4.0-10.0)
[2017-04-11 09:06] LABS: INR 2.86 (0.82-1.09); PROTHROMBIN TIME (PATIENT) 32.3 SEC (9.98-11.88)
[2017-04-11] MEDS: SEVELAMER CARBONATE 800 MG TAB (FP) PO SCH ×2 (11:42→13:10)
[2017-04-11] MEDS: AMINO ACIDS/PROTEIN HYDROLYS 30 ML LIQUID.PKT PO SCH (11:43)
[2017-04-11] MEDS: POLYETHYLENE GLYCOL 3350 119 GM BTL PO SCH (11:43)
[2017-04-11] MEDS: TAMSULOSIN HCL 0.4 MG CAP.ER.24H (FP) PO SCH (11:43)
[2017-04-11 14:31] VITALS: PULSE 58
--- NOTE | 2017-04-11 15:05 | DS ---
Physical Exam: SUBJECTIVE: Patient seen and examined at the bedside. Feels well, denies pain. Wants to go home, son and in the bedside. OBJECTIVE: Reviewed with family discharge instructions: wound care, renal follow up, vascular follow up, PCP follow up Patient has an appointment with Dr. Jenkins on April 13, Tuesday at 5 p.m. - Please have your INR checked as we recently increased your Coumadin to 10mg. Vital Signs Period Temp Pulse Resp BP Sys/Tomas Pulse Ox Last 24 Hr 97.6 F-98.8 F 47-85 16-20 113-157/59-86 96-98 PHYSICAL EXAM GENERAL: The patient is awake, alert, and fully oriented, in no acute distress. HEAD: Normal with no signs of trauma. EYES: PERRL, extraocular movements intact, sclera anicteric, conjunctiva clear. ENT: Ears normal, nares patent, oropharynx clear without exudates, moist mucous membranes. NECK: Trachea midline, full range of motion, supple. LUNGS: Breath sounds equal, clear to auscultation bilaterally, no wheezes, no crackles, no accessory muscle use. HEART: irregular heart rate 50s ABDOMEN: Soft, nontender, nondistended, normoactive bowel sounds, no guarding, no rebound, no hepatosplenomegaly, no masses. EXTREMITIES: right great toe gangrene, s/p surgical repair with dr. farfan - surgical boot ordered NEUROLOGICAL: Normal speech, gait not observed. PSYCH: Normal mood, normal affect. SKIN: Warm, dry, normal turgor, no rashes or lesions noted. LABS Laboratory Results - last 24 hr 04/11/17 04/11/17 04/11/17 08:00 08:00 08:00 WBC 5.3 RBC 2.71 L Hgb 9.2 L Hct 27.5 L MCV 101.1 H MCH 33.7 MCHC 33.3 RDW 20.0 H Plt Count 217 MPV 8.2 PT with INR 32.30 H INR 2.86 H D PTT (Actin FS) 69.8 H HOSPITAL COURSE: Date of Admission:03/20/17 Date of Discharge: 04/11/17 ASSESSMENT/PLAN: Patient is an 81 year old male with a past medical history of hypertension, hyperlipidemia, end stage renal disease (on dialysis), CVA and an aortic valve replacement, a.fib on Coumadin, BPH s/p urolift procedure on 03/17/17 who presented to the ED with hematuria with clots and severe blood loss anemia. : Gross Hematuria s/p Urolift with severe blood loss anemia, now resolved Has received 4 units of prbc since admission abbott removed, and no reported voids: bladder scan has no residuals, pt anuric Seen by urologist, notes reviewed Outpatient follow up with Dr. Bose Cardiology Atrial fibrillation s/p aortic valve replacement INR 2.86, on Coumadin 10mg daily with PCP follow up on 04/13/2017 for INR check with PCP Cardiology follow up with his primary clinical phlebotomist on Tuesday. Patient becomes bradycardic with dialysis but remains asymptomatic, discussed with clinical phlebotomist key person, no new interventions. Patient has outpatient clinical phlebotomist follow up on this coming Tuesday. Renal: ESRD on HD Dialysis with outpatient clinic Vascular Right great toe wound/gangrene Wound care daily, surgical boot Vascular follow up in [address] Farfan Disposition: Discharge home with follow up with surgery, cardiology and renal. Patient's son Philippe Nick . full code. Minutes to complete discharge: 60 Discharge Summary Reason For Visit: GROSS HEMATURIA Current Active Problems AV fistula (Acute) End stage renal disease (Acute) Gross hematuria (Acute) Hematuria (Acute) Condition: Fair - Instructions Diet, Activity, Other Instructions: Mr. Nick: Please follow up with Dr. Bose within 1 week after discharge. You have an appointment with Dr. Jenkins on April 13, Tuesday at 5 p.m. Please have your INR checked as we recently increased your Coumadin to 10mg. Please follow up with your clinical phlebotomist on Tuesday as per your appointment. Wound care instructions DAILY 1. wash your hands before dressing change 2. clean the right great toe wound with sterile normal saline and pat dry 3. apply a small amount (dime sized) of bacitracin to the wound with a sterile gauze 4. apply another gauze and wrap with steve to protect the foot 5. use a surgical shoe, do not apply pressure to this toe Please report any worsening pain to this foot, any odor or drainage from this wound. Please continue dialysis as regularly scheduled. New Medications: Please continue Coumadin 10mg daily and please have your INR checked. I am available for any questions or concerns that you may have. Please call me at [phone]. Dionne Collazo NP [facility] Referrals: Grover Bose MD., [Staff Physician] - 1 Week Isak Farfan MD [Staff Physician] - 1 Week Disposition: HOME - Home Medications Comprehensive Discharge Medication List: Ambulatory Orders Amino Acids/Protein Hydrolys [Proteinex-18 Liquid] 30 ml PO DAILY 03/19/17 Atorvastatin Ca [Lipitor] 20 mg PO HS 03/19/17 Sevelamer Carbonate 1,600 mg PO TID 03/19/17 Silodosin [Rapaflo] 8 mg PO DAILY 03/19/17 Warfarin Na [Coumadin -] 10 mg PO DAILY@1800 #30 tablet 04/11/17 This patient is new to me today: No Emergency Visit: Yes ED Registration Date: 03/20/17 Care time: The patient presented to the Emergency Department on the above date and was hospitalized for further evaluation of their emergent condition. Critical Care patient: No - Discharge Referral Referred to [facility] No
[2017-04-11 15:17] VITALS: BP 137/97; TEMP 99.3
--- NOTE | 2017-04-11 16:31 | PN ---
Progress Note (short form) - Note Progress Note: Renal follow up for ESRD on HD Pt seen and examined at the bedside awake and alert no acute complaints tolerated dialysis well, UF 2.5L no further hematuria for discharge today Vital Signs Temperature 99.3 F 04/11/17 14:00 Pulse Rate 58 L 04/11/17 14:30 Respiratory Rate 20 04/11/17 14:00 Blood Pressure 137/97 04/11/17 14:00 O2 Sat by Pulse Oximetry (%) 96 04/11/17 14:30 Intake & Output 04/08/17 04/09/17 04/10/17 04/11/17 23:59 23:59 23:59 23:59 Intake Total 894.4 600 1180 682 Output Total 200 100 0 Balance 694.4 500 1180 682 Weight 89.902 kg 86.999 kg 86.364 kg 87.815 kg NAD RRR, + systolic click Dec BS soft NT/ND No LE edema CBC, BMP 04/11/17 08:00 04/09/17 10:54 86 year old gentleman wit PMhx of ESRD on HD (MWF x 1.5 years), Hypertension, MVR on Coumadin recent urolift procedure who presented with clogged abbott catheter and hematuira. #ESRD on HD with fluid overload s/p dialysis this am will resume dialysis as outpatient on his regular [facility] schedule #Gross Hematuria with Anemia hematuria now resolved #MVR on Coumadin INR is theraputic today #LE wound/foot ischemia s/p angiogram, findings noted outpatient vascular follow up continue coumadin Lamonte Kapadia DO
--- NOTE | 2017-04-12 10:44 | HOSP ---
Physical Examination Vital Signs: Vital Signs Temperature 99.3 F 04/11/17 14:00 Pulse Rate 58 L 04/11/17 14:30 Respiratory Rate 20 04/11/17 14:00 Blood Pressure 137/97 04/11/17 14:00 O2 Sat by Pulse Oximetry (%) 96 04/11/17 14:30 Labs: CBC, BMP 04/11/17 08:00 04/09/17 10:54 Hospitalist Encounter Assessment: At apx 0730 received a phone call from patient son, Sandoval Paez Jr, stating his father was short of breath, breathing was labored. I asked son to bring his father back to the ER for evaluation. 0740: patient son called me back in the office, states his father's breathing improved after he sat him up but still slightly labored. Again, asked son to bring his father into the ER for further evaluation. Glass Ribbon Machine Operator Assistant informed Dr. Kapadia and business case analyst Liat that son may brining his father in. I informed son that renal and business case analyst are aware and that when he arrives to the ED, he should have them page the hospitalist group. 0800: Received another phone call from patient's son, patient son states that his father is refusing to come to the ER, States father is doing better and will wait before brining him in to the ED. Again asked him not to wait and should be seen in ER as he should be evaluated.
--- NOTE | 2017-04-12 16:43 | OP ---
DATE OF OPERATION: 04/08/2017 PREOPERATIVE DIAGNOSIS: Right great toe gangrene. POSTOPERATIVE DIAGNOSIS: Right great toe gangrene. PROCEDURE: CO2 aortogram with CO2 right lower extremity angiogram. SURGEON: Isak Suarez DO ANESTHESIA: Fractional. BLOOD LOSS: 10 mL INDICATION FOR PROCEDURE: The patient is an 81-year-old male who the tip of his right great toe is gangrenous. It has been like that for some couple of weeks according to the family, and it was decided that he needs a diagnostic study to evaluate his circulation. Patient was consented for the procedure, understanding all risks, benefits, and alternatives, then taken to the operating room. DESCRIPTION OF PROCEDURE: Once in the operating room, he was laid on the operating table in supine manner, and the areas of the right and left groin were prepped and draped in a sterile surgical manner. We then went ahead and injected 10 mL of lidocaine 1% in the left common femoral artery. We then took our micropuncture needle and punctured the left common femoral artery and a micropuncture sheath was inserted and a traditional 5-Slovak sheath was inserted. Due to the fact that the patient has a high creatinine and has a SEVERE CONTRAST ALLERGY, it was decided that we would use CO2 in order to visualize our vasculature. We then placed a 0.035 floppy guidewire up into the aorta. We then placed our Omni Flush catheter to follow. We then shot our CO2 aortogram showing that the aorta and the iliac arteries were without any disease. We then placed our 0.035 floppy guidewire up and over to the right common femoral artery, and our Omni Flush catheter followed. We then were able to shoot a CO2 right lower extremity angiogram showing that the common femoral artery, the profunda, and the SFA were patent. The distal SFA was patent as well. We then placed our 0.035 stiff guidewire down into the popliteal artery and placed a seeker catheter down to the popliteal artery. We then shot a below-knee CO2 angiogram in the right lower extremity, showing that the trifurcation is patent, but patient only has main runoff is PT going into the foot, feeding the rest of the foot. At this point, we decided that there was no intervention needed. There was no bypassable disease. There were no areas that needed to be angioplastied. We brought our Omni Flush catheter up and over. We then took out our sheath from the left groin, and pressure was held there for 5 minutes. Afterwards, there was no more bleeding. Area was wet and dried, and Dermabond was placed. Patient tolerated the procedure with no complications. Patient transferred to PACU in stable condition. ISAK SUAREZ DO [id number]
== END 2017-04-11 16:16 | disposition home or self-care (01) | DRG 813 ==
LOC: JER 09:55 → JERBED 17:02 → J4W 21:17 → OBSVTOIN 03-20 12:20 → J4W 03-21 12:07
PROVIDERS: ADMIT Internal Medicine; ATTEND Nurse Practitioner Family
PROC: 30233N1 Transfusion of Nonautologous Red Blood Cells into Peripheral Vein, Percutaneous Approach (ICD-10-PCS; principal; 2017-03-19)
PROC: 5A1D70Z Performance of Urinary Filtration, Intermittent, Less than 6 Hours Per Day (ICD-10-PCS; 2017-04-04)
PROC: 5A1D70Z Performance of Urinary Filtration, Intermittent, Less than 6 Hours Per Day (ICD-10-PCS; 2017-04-06)
PROC: B40DYZZ Plain Radiography of Aorta and Bilateral Lower Extremity Arteries using Other Contrast (ICD-10-PCS; 2017-04-08)
PROC: B40FYZZ Plain Radiography of Right Lower Extremity Arteries using Other Contrast (ICD-10-PCS; 2017-04-08)
PROC: 5A1D70Z Performance of Urinary Filtration, Intermittent, Less than 6 Hours Per Day (ICD-10-PCS; 2017-04-08)
PROC: 5A1D70Z Performance of Urinary Filtration, Intermittent, Less than 6 Hours Per Day (ICD-10-PCS; 2017-04-09)
PROC: 5A1D70Z Performance of Urinary Filtration, Intermittent, Less than 6 Hours Per Day (ICD-10-PCS; 2017-04-11)
DX: D68.32 Hemorrhagic disorder due to extrinsic circulating anticoagulants (principal); N18.6 End stage renal disease; I12.0 Hypertensive chronic kidney disease with stage 5 chronic kidney disease or end stage renal disease; D62 Acute posthemorrhagic anemia; I96 Gangrene, not elsewhere classified; T83.098A Other mechanical complication of other urinary catheter, initial encounter; I48.91 Unspecified atrial fibrillation; R31.0 Gross hematuria; N40.0 Benign prostatic hyperplasia without lower urinary tract symptoms; N25.0 Renal osteodystrophy; E87.70 Fluid overload, unspecified; N32.9 Bladder disorder, unspecified; E78.5 Hyperlipidemia, unspecified; I73.89 Other specified peripheral vascular diseases; T45.515A Adverse effect of anticoagulants, initial encounter; Y83.8 Other surgical procedures as the cause of abnormal reaction of the patient, or of later complication, without mention of misadventure at the time of the procedure; Y92.89 Other specified places as the place of occurrence of the external cause; Z79.01 Long term (current) use of anticoagulants; Z95.2 Presence of prosthetic heart valve; Z86.73 Personal history of transient ischemic attack (TIA), and cerebral infarction without residual deficits; Z99.2 Dependence on renal dialysis; Z89.421 Acquired absence of other right toe(s); Z87.891 Personal history of nicotine dependence
CPT/HCPCS: 36415; 36430; 73630-TC-RT-FY; 76000-TC-FY; 76775-TC; 76856-TC; 80048; 80053; 81003; 81015; 82272; 82550; 82553; 82607; 82728; 82747; 82784; 82962; 83540; 83550; 83615; 83735; 84100; 84155; 84165; 84484; 85014; 85025; 85027; 85044; 85610; 85730; 86334; 86704; 86706; 86708; 86803; 86850; 86900; 86901; 86922; 87086; 87186; 87340; 93005; 93010; 94760; 94761; 97116-GP; 97161-GP; 99283-25; G0378; J0885; J1644; P9038; P9058

== ENCOUNTER 2017-11-26 17:13 | Emergency (ER) | payer OTHER ==
[2017-11-26 17:33] VITALS: BMI 22.4
--- NOTE | 2017-11-26 18:18 | PDOC ---
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 Patient fell two days ago when he was getting up from the toilet and tripped on his pants. He remembers the entire episode and denies history of afib or seizure. No LOC, nausea, or vomiting. Patient reports 9/10 pain in his back consistent with the area where he fell. The pain is so severe that it keeps him from taking a deep breath. He has not taken anything at home for his pain. Denies fevers, chills, chest pain, or shortness of breath. Past History - Past Medical History Allergies/Adverse Reactions: Allergies Allergy/AdvReac Type Severity Reaction Status Date / Time Iodinated Contrast- Oral and AdvReac Severe Verified 11/26/17 17:28 IV Dye Home Medications: Ambulatory Orders Amino Acids/Protein Hydrolys [Proteinex-18 Liquid] 30 ml PO DAILY 03/19/17 Atorvastatin Ca [Lipitor] 20 mg PO HS 03/19/17 Sevelamer Carbonate 1,600 mg PO TID 03/19/17 Silodosin [Rapaflo] 8 mg PO DAILY 03/19/17 Warfarin Na [Coumadin -] 10 mg PO DAILY@1800 #30 tablet 04/11/17 Collagenase Clostridium Hist. [Santyl] 1 applic TP DAILY #90 oint...g. 05/02/17 Collagenase Clostridium Hist. [Santyl] 1 applic TP DAILY #90 oint...g. 06/24/17 Oxycodone HCl/Acetaminophen [Percocet 5/325 -] 1 tab PO Q6H #30 tablet MDD 3 Oxycodone HCl/Acetaminophen [Percocet 5/325 -] 1 tab PO Q6H #30 tablet MDD 4 Cardiac Disorders: Yes (atrial fibrillation / heart valve) COPD: No CHF: No Disorders: Yes (dyalisis [id number]) HTN: Yes Hypercholesterolemia: Yes - Suicide/Smoking/Psychosocial Hx Smoking History: Never smoked Have you smoked in the past 12 months: No Information on smoking cessation initiated: No Hx Alcohol Use: No Drug/Substance Use Hx: No Substance Use Type: None Review of Systems - Review of Systems Comments:: Constitutional: no fever, no chills HEENT: no throat pain, no dysphagia Cardiovascular: no chest pain, no palpitations Respiratory: no cough, no shortness of breath Gastrointestinal: no abdominal pain, no nausea, no vomiting Genitourinary: no dysuria, no frequency Musculoskeletal: +back pain, no arthralgia Skin: no rash, no itching Neurologic: no headache, no dizziness *Physical Exam - Vital Signs Last Vital Signs Temp Pulse Resp BP Pulse Ox 99.3 F 61 16 139/62 92 L 11/26/17 17:28 11/26/17 17:28 11/26/17 17:28 11/26/17 17:28 11/26/17 17:28 - Physical Exam Comments: General: Awake, alert, and fully oriented, in no acute distress Head: no signs of trauma Eyes: EOMI, sclera anicteric ENT: Moist mucus membranes Neck: Normal ROM, supple Lungs: Lungs clear, Normal breath sounds Cardio: Regular rhythm, S1 and S2 present Abdomen: Soft, nontender. No guarding, no rebound, no masses Extremities: Normal range of motion, Distal pulses present SKIN: Warm, Dry, normal turgor Back: Tender to palpation over lower ribs laterally, no overlying wounds or lesions Neurologic: Cranial nerves II through XII grossly intact. 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 -Tylenol 650 -Imaging -Patient found to have fractures of ribs 5/6/7 -Percocet ordered -Incentive spirometer given. Patient instructed on its use. Demonstrated proper use. -Dr. Kerr sent percocet prescription to pharmacy. There were issue with the first transmission, so the prescription was sent to another pharmacy which was successful. -Discharged. Patient amenable to plan *DC/Admit/Observation/Transfer Diagnosis at time of Disposition: Rib fractures Qualifiers: Encounter type: initial encounter Rib fracture type: multiple ribs Fracture type: closed Laterality: right Qualified Code(s): S22.41XA - Multiple fractures of ribs, right side, initial encounter for closed fracture - Discharge Dispostion Disposition: HOME Condition at time of disposition: Stable - Prescriptions Prescriptions: Oxycodone HCl/Acetaminophen [Percocet 5/325 -] 1 tab PO Q6H #30 tablet MDD 4 Oxycodone HCl/Acetaminophen [Percocet 5/325 -] 1 tab PO Q6H #30 tablet MDD 3 - Referrals - Patient Instructions Printed Discharge Instructions: DI for Rib Fracture Additional Instructions: You came to the ED for back pain. Imaging showed that you have three fractured ribs. Pain medicine sent to your pharmacy. Take as needed. Use the incentive spirometer regularly, about ten times per hour. Follow up with your primary care doctor in 5-7 days to discuss this visit and assess your recovery. Immediate medical attention is required if you experience: Increased pain or swelling, signs of infection including fever and chills, nausea and vomiting, lightheadedness, inability to breathe or very rapid breathing, rapid irregular heartbeat, chest pain. If you think you are having an emergency, call for emergency medical services or present to the emergency department right away. - Post Discharge Activity
[2017-11-26] MEDS ORDERED: ACETAMINOPHEN 325 MG TABLET (FP) PO ONE (18:50)
[2017-11-26] MEDS ORDERED: ACETAMINOPHEN 325 MG TABLET (FP) ONE (18:52)
--- NOTE | 2017-11-26 19:35 | PDOC ---
Attending Attestation - HPI HPI: 11/26/17 19:37 The patient is a 82 year old male, with a significant PMH of ESRD (on HD - last HD yesterday (03/19)), CVA (2012 no residual deficits), Aortic valve replacement , Atrial Fibrillation (on Warfarin) and BPH (s/p Urolift on 03/17) who presents to the emergency department s/p fall two days ago. Patient states he fell while getting up from the toilet and sustained the fall on his back. Patient is now complaining of worsening back pain. Patient denies taking any medications for his pain. Patient denies head trauma or LOC. The patient denies chest pain, shortness of breath, headache and dizziness. Denies fever, chills, nausea, vomit, diarrhea and constipation. Denies dysuria, frequency, urgency and hematuria. Allergies: NKA Past surgical history: Aortic valve replacement Social history: No reported alcohol, drug, or cigarette use. - Physicial Exam PE: 11/26/17 21:24 ADULT EXAM GENERAL: Awake, alert, and fully oriented, in no acute distress HEAD: No signs of trauma EYES: PERRLA, EOMI, sclera anicteric, conjunctiva clear ENT: Auricles normal inspection, hearing grossly normal, nares patent, oropharynx clear without exudates. Moist mucosa NECK: Normal ROM, supple, no lymphadenopathy, JVD, or masses LUNGS: Breath sounds equal, clear to auscultation bilaterally. No wheezes, and no crackles HEART: Regular rate and rhythm, normal S1 and S2, no murmurs, rubs or gallops ABDOMEN: Soft, nontender, normoactive bowel sounds. No guarding, no rebound. No masses EXTREMITIES: Normal range of motion, no edema. No clubbing or cyanosis. No cords, erythema, or tenderness NEUROLOGICAL: Cranial nerves II through XII grossly intact. Normal speech, normal gait SKIN: Warm, Dry, normal turgor, no rashes or lesions noted. <Goldie Chiang - Last Filed: 11/26/17 21:23> - Resident Resident Name: Radha Malloy - ED Attending Attestation I have performed the following: I have examined & evaluated the patient, The case was reviewed & discussed with the resident, I agree w/resident's findings & plan - Medical Decision Making 11/26/17 19:35 Pt fell in the bath 2 days ago and comes with chest pain. His O2 sat is low 92% ; pt is splinting and his CXR reveals rib Fx on the right side T7,8,9 11/27/17 22:41 Home with adequate pain management as well as incentive spirometer <Clara Kerr - Last Filed: 11/27/17 22:41>
[2017-11-26 21:51] VITALS: BP 126/78; PULSE 89; TEMP 98.5
== END 2017-11-26 21:51 | disposition home or self-care (01) ==
LOC: JER 17:13
DX: S22.41XA Multiple fractures of ribs, right side, initial encounter for closed fracture (principal); W18.11XA Fall from or off toilet without subsequent striking against object, initial encounter; Y93.89 Activity, other specified; Y92.012 Bathroom of single-family (private) house as the place of occurrence of the external cause; Y99.8 Other external cause status; I12.0 Hypertensive chronic kidney disease with stage 5 chronic kidney disease or end stage renal disease; N18.6 End stage renal disease; N17.8 Other acute kidney failure; Z99.2 Dependence on renal dialysis; E78.00 Pure hypercholesterolemia, unspecified; Z95.4 Presence of other heart-valve replacement; Z79.01 Long term (current) use of anticoagulants
CPT/HCPCS: 71046-TC-FY; 71101-TC-RT-FY; 99282-25